=== PATIENT | female | born 1955 | race Caucasian/White ===

== ENCOUNTER 2021-03-02 12:33 | Outpatient (REF) | payer MEDICARE, SELFPAY ==
[2021-03-02 12:47] LABS: Appearance Urine HAZY; Color Urine YELLOW; Glucose Urine UA NEG (NEG); Leukocyte Esterase Urine NEG (NEG); Nitrite Urine NEG (NEG); PH 6.5 (5.0-8.0); UACC Culture Trigger NO; Urine Blood 1+ (NEG); Urine Ketones NEG (NEG); Urine Protein NEG (NEG-TRACE)
[2021-03-02 14:35] LABS: Squamous Epithelial Cell Urine TRACE /LPF; WBC Urine 0-2 /HPF (0-4)
== END 2021-03-02 12:34 | disposition home or self-care (01) ==
LOC: HO.LNP 12:33
PROVIDERS: Visit Provider Internal Medicine
DX: N39.0 Urinary tract infection, site not specified (principal); N81.4 Uterovaginal prolapse, unspecified
CPT/HCPCS: 81001

== ENCOUNTER 2021-03-09 09:45 | Outpatient (REF) | payer MEDICARE, SELFPAY | END 2021-03-09 09:46 | disposition home or self-care (01) | LOC: HO.LAB 09:45 | PROVIDERS: Visit Provider Obstetrics & Gynecology | DX: R31.29 Other microscopic hematuria (principal); R35.0 Frequency of micturition; R10.2 Pelvic and perineal pain | CPT/HCPCS: 87086; 87088; 99202 ==

== ENCOUNTER 2021-03-25 11:10 | Outpatient (REF) | payer MEDICARE, SELFPAY ==
--- NOTE | ~2021-03-25 | US_ITS ---
EXAMINATION: US PELVIC AND TRANSVAGINAL CLINICAL INFORMATION: Pelvic and perineal pain. COMPARISON: None. TECHNIQUE: Ultrasound of the pelvis is performed using both transabdominal and transvaginal transducers along with Doppler. Transvaginal imaging is performed due to inadequate visualization transabdominally. FINDINGS: The uterus is anteverted and measures 7.3 x 0.1 x 3.5 cm in dimension. No focal uterine lesion is seen. There is a large cystic area in the cervix, question representing focal dilatation and fluid in the endocervical canal versus nabothian cyst. The right ovary is not seen. The left ovary is normal-appearing and measures 1.1 x 0.7 x 0.9 cm. There is no fluid in the pelvis. US/US pelvic and transvaginal IMPRESSION: Large cystic area in the cervix, question representing dilated fluid-filled endocervical canal versus large nabothian cyst.
== END 2021-03-25 11:11 | disposition home or self-care (01) ==
LOC: HO.US 11:10
PROVIDERS: Visit Provider Obstetrics & Gynecology
DX: R10.2 Pelvic and perineal pain (principal)
CPT/HCPCS: 76830; 76856

== ENCOUNTER → 2021-03-30 08:34 | Outpatient (BNVA) | payer MEDICARE, SELFPAY | PROVIDERS: PCP Internal Medicine; Visit Provider Obstetrics & Gynecology ==

== ENCOUNTER 2021-04-13 09:43 | Outpatient (REF) | payer MEDICARE, SELFPAY ==
--- NOTE | ~2021-04-13 | MM_ITS ---
EXAMINATION: MM SCREENING DIGITAL BREAST TOMOSYNTHESIS, BILATERAL CLINICAL INFORMATION: Screening. Asymptomatic. The lifetime risk of breast cancer based on the Tyrer-Cuzick Model is 13%. COMPARISON: Mammography: 02/28/2013, 02/21/2012 TECHNIQUE: Digital breast tomosynthesis is performed in both the craniocaudal and mediolateral oblique views along with computer-aided detection (CAD). Synthesized 2D images are generated from the tomosynthesis. FINDINGS: There are scattered areas of fibroglandular density (ACR BI-RADS breast composition Category b). Parenchymal pattern is similar to prior exams. No significant mass or architectural abnormality or abnormal calcifications. Axillary nodes similar to prior exam. The skin contours are smooth. MM/MM tomosynthesis screening BI IMPRESSION: No significant changes from prior study. ASSESSMENT: BI-RADS 2: Benign RECOMMENDATION: Routine annual mammography screening. This patient's information was entered into a reminder system with a target due date for their next mammogram.
[2021-04-13 12:07] LABS: Blood Urea Nitrogen 12 mg/dL (9-16); Estimated Glomerular Filt Rate > 60
== END 2021-04-13 09:44 | disposition home or self-care (01) ==
LOC: HO.MAMMO 09:43
PROVIDERS: Absent Provider Obstetrics & Gynecology; PCP Nurse Practitioner Family; Visit Provider Nurse Practitioner Family
DX: R31.29 Other microscopic hematuria (principal); Z12.31 Encounter for screening mammogram for malignant neoplasm of breast
CPT/HCPCS: 36415; 77063; 77067; 82565; 84520

== ENCOUNTER 2021-04-15 07:56 | Outpatient (REF) | payer MEDICARE, SELFPAY ==
--- NOTE | ~2021-04-15 | MM_ITS ---
EXAMINATION: BONE DENSITOMETRY CLINICAL INDICATION: Menopause. COMPARISON: Baseline BD dated 11/29/2007. TECHNIQUE: Using a [employer] DXA System (software version: 13.1) manufactured by [employer], dual-energy x-ray absorptiometry was performed of the lumbar spine and left hip. The images are of good technical quality. Summary results are attached. FINDINGS: AP SPINE L1-L4: Current: BMD 1.274 g/cm2, Z-score 2.2, T-score 0.8, normal, 7.5% increase from baseline (<5% change is not significant). Baseline: BMD 1.185 g/cm2. LEFT FEMUR, NECK: Current: BMD 0.765 g/cm2, Z-score -0.5, T-score -2.0, osteopenia. Baseline: BMD 0.725 g/cm2. LEFT FEMUR, TOTAL: Current: BMD 0.930 g/cm2, Z-score 0.6, T-score -0.6, normal, 7.8% increase from baseline (<5% change is not significant). Baseline: BMD 0.863 g/cm2. IDENTIFIED RISK FACTORS: Menopause, history of fracture (adult). HISTORY OF FRACTURE: Wrist, ankle. MEDICATIONS: Calcium, vitamin D. MM/XR DEXA axial skeleton IMPRESSION: 1. DIAGNOSIS: Osteopenia based on the lowest T-score value of -2.0 in the femoral neck applying World Health Organization criteria. 2. 10-YEAR FRACTURE RISK PREDICTION, FRAX: Major osteoporotic fracture (clinical spine, forearm, hip or shoulder) 17.3%. Hip fracture 2.8%. 3. Treatment Recommendations: NOF guidelines recommend consideration for treatment in postmenopausal women and men age 50 and older presenting with the following: -A hip or vertebral (clinical or morphometric) fracture. -T-score less than or equal to -2.5 at the femoral neck or spine after appropriate evaluation to exclude secondary causes. -Low bone mass at the hip or spine and a 10-year fracture probability by FRAX of greater than or equal to 3% for hip fracture or greater than or equal to 20% for major osteoporotic fracture based on the [place] adapted WHO algorithm. 4. Other Recommendations: All treatment decisions require clinical judgment and consideration of individual patient factors, including patient preferences, comorbidities, previous drug use, risk factors not captured in the FRAX model (e.g. frailty, falls, vitamin D deficiency, increased bone turnover, interval significant decline in bone density) and possible under or overestimation of fracture risk by FRAX. Additional medical evaluation for secondary cause of low bone mineral density may be appropriate. FUTURE SCAN RECOMMENDATION: People with diagnosed cases of osteoporosis or at high risk for fracture should have regular bone mineral density tests. For patients eligible for Medicare, routine testing is allowed once every 2 years. The testing frequency can be increased to one year for patients who have rapidly progressing disease, those who are receiving or discontinuing medical therapy to restore bone mass, or have additional risk factors.
== END 2021-04-15 07:57 | disposition home or self-care (01) ==
LOC: HO.MAMMO 07:56
PROVIDERS: Visit Provider Obstetrics & Gynecology
DX: Z13.820 Encounter for screening for osteoporosis (principal); M85.80 Other specified disorders of bone density and structure, unspecified site; Z78.0 Asymptomatic menopausal state; Z87.81 Personal history of (healed) traumatic fracture; Z79.899 Other long term (current) drug therapy
CPT/HCPCS: 77080

== ENCOUNTER 2021-04-20 08:05 | Outpatient (REF) | payer MEDICARE, SELFPAY ==
--- NOTE | ~2021-04-20 | CT_ITS ---
EXAMINATION: CT ABDOMEN AND PELVIS WITHOUT AND WITH CONTRAST CLINICAL INFORMATION: Microscopic hematuria COMPARISON: Previous pelvic ultrasound March 2021 TECHNIQUE: Multidetector volumetric imaging was performed of the abdomen and pelvis before and after the IV administration of 85 mL of Omnipaque 350 intravenous contrast. Sagittal and coronal reformatted images were obtained on the technologist's workstation. This CT examination was performed using dose optimization techniques as appropriate, variously including the following: *Automated exposure control *Adjustment of mA and/or kV according to patient size (this includes techniques or standardized protocols for targeted exams where dose is matched to indication/reason for exam; i.e. extremities or head) *Use of iterative reconstruction technique DLP: 677 mGy-cm FINDINGS: LUNG BASES: The visualized lung bases are unremarkable. LIVER, GALLBLADDER, AND BILIARY TREE: The liver is normal in size, shape, and attenuation. No focal hepatic lesion or biliary ductal dilatation is present. The gallbladder is unremarkable with no evidence of radiopaque gallstones, gallbladder wall thickening, or obvious pericholecystic inflammatory changes. PANCREAS: Unremarkable SPLEEN: Unremarkable ADRENAL GLANDS: Unremarkable KIDNEYS AND URETERS: The kidneys are normal in size, shape, and attenuation. No hydronephrosis, hydroureter, or calculi seen. The collecting systems and ureters are normal. BLADDER: The bladder is normal. GASTROINTESTINAL TRACT: The small and large bowel are unremarkable. The appendix is unremarkable. ABDOMINAL WALL: No significant hernia is appreciated. LYMPH NODES: Normal VASCULAR: Unremarkable PELVIC VISCERA: There is a 1.5 cm cystic areas seen in the cervix likely corresponding to finding on pelvic ultrasound. OSSEOUS STRUCTURES: There are degenerative changes of the spine. CT/CT abdomen pelvis wo/w con IMPRESSION: Normal CT IVP. No cause of hematuria seen. Fleischner guidelines were followed.
[2021-04-20] MEDS: iohexoL 350 MG/ML 100 ML INFUS..BTL IV (09:03)
== END 2021-04-20 08:06 | disposition home or self-care (01) ==
LOC: HO.CT 08:05
PROVIDERS: Visit Provider Obstetrics & Gynecology
DX: R31.29 Other microscopic hematuria (principal)
CPT/HCPCS: 74178; Q9967

== ENCOUNTER → 2021-04-29 14:42 | Outpatient (BNVA) | payer MEDICARE, SELFPAY | PROVIDERS: PCP Nurse Practitioner Family; Visit Provider Obstetrics & Gynecology | DX: M85.80 Other specified disorders of bone density and structure, unspecified site (principal); R31.29 Other microscopic hematuria | CPT/HCPCS: 99212 ==

== ENCOUNTER 2021-05-02 07:05 | Outpatient (REF) | payer MEDICARE, SELFPAY ==
[2021-05-02 07:28] LABS: MANUAL DIFF FLAG NO
[2021-05-02 08:04] LABS: Basophils Percent Auto 0.6 % (0-2); Eosinophils Absolute Auto 0.2 X10*3/uL (0.0-0.4); Eosinophils Percent Auto 2.3 % (0-4); Hematocrit 44.2 % (37.0-47.0); Hemoglobin 14.1 g/dl (12.0-16.0); Imm Gran Abs Auto 0.02 X10*3/uL (0.00-0.03); Imm Gran Pct Auto 0.3 % (0.0-0.4); Mean Corpuscular HGB Conc 31.9 g/dl (31.0-35.0); Mean Corpuscular Hemoglobin 26.6 pg (27.0-33.0); Mean Corpuscular Volume 83.2 fL (80.0-98.0); Mean Platelet Volume 8.6 fL (9.4-12.3); Monocytes Absolute Auto 0.4 X10*3/uL (0.1-1.2); Monocytes Percent Auto 5.7 % (2-11); Neutrophils Absolute Auto 4.3 x10*3/uL (2.0-8.3); Neutrophils Percent Auto 62.1 % (45-73); Platelet Count 371 X10*3/uL (160-400); Red Blood Count 5.31 X10*6/uL (4.20-5.50); Red Cell Distribution Width 13.5 % (11.0-16.0); White Blood Count 6.9 X10*3/uL (4.8-10.8)
[2021-05-02 08:24] LABS: Alanine Aminotransferase 15 U/L (0-31); Albumin Level 4.1 g/dL (3.5-5.0); Alkaline Phosphatase 69 U/L (39-117); Anion Gap 11 (12-20); Aspartate Amino Transferase 15 U/L (5-31); Bilirubin Total 0.5 mg/dL (0.0-1.0); Blood Urea Nitrogen 14 mg/dL (9-16); Calcium 9.4 mg/dL (8.4-10.2); Carbon Dioxide 27 mmol/L (22-29); Chloride 106 mmol/L (96-108); Cholesterol 240 mg/dL; Estimated Glomerular Filt Rate > 60; Glucose Fasting 101 mg/dL (60-99); HDL Cholesterol 42 mg/dL; LDL Cholesterol Calculated 174 mg/dl; Potassium 4.4 mmol/L (3.3-5.1); Sodium 140 mmol/L (135-145); Total Protein 7.3 g/dL (6.5-8.0); Triglycerides 122 mg/dL
== END 2021-05-02 07:06 | disposition home or self-care (01) ==
LOC: HO.LAB 07:05
PROVIDERS: Visit Provider Nurse Practitioner Family
DX: E78.00 Pure hypercholesterolemia, unspecified (principal); I10 Essential (primary) hypertension; Z76.89 Persons encountering health services in other specified circumstances; Z13.1 Encounter for screening for diabetes mellitus
CPT/HCPCS: 36415; 80053; 80061; 85025

== ENCOUNTER → 2021-06-10 07:48 | Outpatient (BNVA) | payer MEDICARE, SELFPAY | PROVIDERS: PCP Nurse Practitioner Family; Referring Provider Nurse Practitioner Family; Visit Provider Nurse Practitioner Family | DX: Z12.11 Encounter for screening for malignant neoplasm of colon (principal); K21.9 Gastro-esophageal reflux disease without esophagitis; K59.1 Functional diarrhea | CPT/HCPCS: 99202 ==

== ENCOUNTER 2021-07-20 08:43 | Outpatient (REF) | payer MEDICARE, SELFPAY ==
[2021-07-20 16:25] LABS: Urine Cytology See Pathology rpt
== END 2021-07-20 08:44 | disposition home or self-care (01) ==
LOC: HO.LAB 08:43
PROVIDERS: PCP Nurse Practitioner Family
DX: R31.9 Hematuria, unspecified (principal); N39.0 Urinary tract infection, site not specified
CPT/HCPCS: 87086; 87088; 87186; 88112; 99202

== ENCOUNTER 2021-08-05 13:48 | Outpatient (REF) | payer MEDICARE, SELFPAY ==
--- NOTE | ~2021-08-05 | XR_ITS ---
EXAMINATION: XR HIP, BILATERAL CLINICAL INFORMATION: Pain in the right and left hip. COMPARISON: X-rays of the pelvis and right hip October 2007. TECHNIQUE: AP and lateral views of the right hip and at the left hip. FINDINGS: RIGHT HIP: The hip joint and surrounding bone and soft tissues are normal. LEFT HIP: The hip joint is normal. There is some minimal calcific density or ossific density just proximal to the greater trochanter. This is unchanged. Surrounding bone and soft tissues unremarkable. XR/XR hip RT min 2V IMPRESSION: Right hip: Normal. Left hip: No arthrosis or acute abnormality. Minimal calcific or ossific density just proximal to the greater trochanter unchanged compared to the 2007 examination. This is likely dystrophic related to prior trauma or degenerative change in the surrounding soft tissues.
--- NOTE | ~2021-08-05 | XR_ITS ---
EXAMINATION: XR HIP, BILATERAL CLINICAL INFORMATION: Pain in the right and left hip. COMPARISON: X-rays of the pelvis and right hip October 2007. TECHNIQUE: AP and lateral views of the right hip and at the left hip. FINDINGS: RIGHT HIP: The hip joint and surrounding bone and soft tissues are normal. LEFT HIP: The hip joint is normal. There is some minimal calcific density or ossific density just proximal to the greater trochanter. This is unchanged. Surrounding bone and soft tissues unremarkable. XR/XR hip LT min 2V IMPRESSION: Right hip: Normal. Left hip: No arthrosis or acute abnormality. Minimal calcific or ossific density just proximal to the greater trochanter unchanged compared to the 2007 examination. This is likely dystrophic related to prior trauma or degenerative change in the surrounding soft tissues.
[2021-08-05 15:08] LABS: Alanine Aminotransferase 14 U/L (0-31); Albumin Level 4.1 g/dL (3.5-5.0); Alkaline Phosphatase 75 U/L (39-117); Anion Gap 13 (12-20); Aspartate Amino Transferase 14 U/L (5-31); Bilirubin Direct < 0.2 mg/dL (0.0-0.5); Bilirubin Total 0.4 mg/dL (0.0-1.0); Blood Urea Nitrogen 15 mg/dL (9-16); Calcium 9.4 mg/dL (8.4-10.2); Carbon Dioxide 25 mmol/L (22-29); Chloride 105 mmol/L (96-108); Estimated Glomerular Filt Rate > 60; Glucose Random 89 mg/dL (60-115); Lipase 13 U/L (8-78); Potassium 4.3 mmol/L (3.3-5.1); Sodium 139 mmol/L (135-145); Total Protein 7.4 g/dL (6.5-8.0)
== END 2021-08-05 13:49 | disposition home or self-care (01) ==
LOC: HO.LAB 13:48
PROVIDERS: PCP Nurse Practitioner Family; Visit Provider Nurse Practitioner Family
DX: M16.0 Bilateral primary osteoarthritis of hip (principal); M25.511 Pain in right shoulder; R31.9 Hematuria, unspecified
CPT/HCPCS: 36415; 73502; 80048; 80076; 83690

== ENCOUNTER → 2021-08-17 09:20 | Outpatient (BNVA) | payer MEDICARE, SELFPAY | PROVIDERS: PCP Nurse Practitioner Family | DX: Z13.89 Encounter for screening for other disorder (principal) | CPT/HCPCS: Q3014 ==

== ENCOUNTER 2021-09-07 06:47 | Outpatient (REF) | payer MEDICARE, SELFPAY | END 2021-09-07 06:48 | disposition home or self-care (01) | LOC: HO.HOSX 06:47 | PROVIDERS: Visit Provider Orthopaedic Surgery | DX: Z13.89 Encounter for screening for other disorder (principal) ==

== ENCOUNTER 2021-10-05 07:19 | Day surgery (SDC) | payer MEDICARE, SELFPAY ==
[2021-09-29 15:36] VITALS: BMI 31.7
--- NOTE | 2021-10-02 12:51 | HO.ANESPROP2 ---
Documented by User: Mary Rodas NP 10/02/21 12:57 HPI - Anesthesia Eval Consult details Narrative: 65yo F for Colonoscopy PMFSH Active Problems Active Problems: All Active Problems (Updated 09/29/21 @ 15:30 by Rozina Garber RN) Urinary tract infection (Acute) Uterine prolapse (Acute) Urinary frequency (Acute) Microscopic hematuria (Acute) Well woman exam (Acute) Menopause (Acute) Encounter to establish care (Acute ~04/23/21) Diabetes mellitus screening (Acute) Osteoarthritis of hips, bilateral (Acute) Osteopenia (Acute) Left hip pain (Acute) Right shoulder pain (Acute) Upper back strain (Acute) Hematuria (Acute) Past Medical History Medical History (Updated 09/29/21 @ 15:30 by Rozina Garber RN) Hematuria Hot flashes Osteoarthritis Osteopenia Family History Family History Mother Breast cancer Pre-diabetes Father No problems noted. Surgical History Surgical History (Updated 09/29/21 @ 15:35 by Rozina Garber RN) H/O colonoscopy History of hand surgery History of tonsillectomy History of tubal ligation Social History Social History Housing: House Alcohol intake: never Patient Tobacco Use Status: Former Tobacco user Tobacco use type: Cigarette Smoked in Last 30 Days: No e-Cigarette/Vaping Use: Never Used Second Hand Smoke Exposure: No Use of substances other than those prescribed or required for medical reasons: No Are you DNR?: No Advance Directives: No Advance Directives Information Provided: Yes Recently lost weight without trying: No Nutrition Risks: No Nutritional Risk service: No Current occupational status: employed Cognitive needs: No Hearing needs: No Vision needs: Yes (glasses) Meds Allergies Allergy/AdvReac Type Severity Reaction Status Date / Time Sulfa (Sulfonamide Allergy Severe ANAPHYLAXIS Verified 09/23/21 12:54 Antibiotics) [SULFA(SULFONAMIDE ANTIBIOTICS)] Exam Exam Date and Time: October 02, 2021 1251 Height,Weight and Vital Signs: Height 4 ft 11 in Weight 71.214 kg Assessment and Plan Assessment Anesthesia Assessment: Chart Reviewed Documented by User: Greta Chandra MD 10/05/21 08:18 PMF Past Medical History Medical History (Updated 09/29/21 @ 15:30 by Rozina Garber RN) Hematuria Hot flashes Osteoarthritis Osteopenia Family History Family History Mother Breast cancer Pre-diabetes Father No problems noted. Family history of problems with anesthesia: No Surgical History Surgical History (Updated 09/29/21 @ 15:35 by Rozina Garber RN) H/O colonoscopy History of hand surgery History of tonsillectomy History of tubal ligation History of Problems with Anesthesia: No Social History Social History Housing: House Alcohol intake: never Patient Tobacco Use Status: Former Tobacco user Tobacco use type: Cigarette Smoked in Last 30 Days: No e-Cigarette/Vaping Use: Never Used Second Hand Smoke Exposure: No Use of substances other than those prescribed or required for medical reasons: No Are you DNR?: No Advance Directives: No Advance Directives Information Provided: Yes Recently lost weight without trying: No Nutrition Risks: No Nutritional Risk service: No Current occupational status: employed Cognitive needs: No Hearing needs: No Vision needs: Yes (glasses) Meds Allergies Allergy/AdvReac Type Severity Reaction Status Date / Time Sulfa (Sulfonamide Allergy Severe ANAPHYLAXIS Verified 09/23/21 12:54 Antibiotics) [SULFA(SULFONAMIDE ANTIBIOTICS)] Exam Airway Mallampati Class: II (2 implants on top one each side ) TM Dist: >3cm Neck ROM: Full Heart: rrr Lungs: cta Assessment and Plan Assessment Anesthesia Assessment: Anesthesia Plan Discussed and Chart Reviewed Final Anesthetic Review Family History of Problems with Anesthesia: No History of Problems with Anesthesia: No NPO: Yes ASA Class: II Final Preanesthetic Review: No Changes in Pt Med Stat, Meds/Allgs Chart Reviewed and Consent Obtained/Reviewed Patient Risk: Intermediate Procedure Risk: Intermediate Anesthetic Plan Anesthetic Plan: MAC: Disposition: Standard PACU
[2021-10-05 07:47] VITALS: BMI 31.5
[2021-10-05 07:56] VITALS: BP 124/82; PULSE 78; RESP 16; TEMP 36.6; O2SAT 99
--- NOTE | 2021-10-05 08:01 | MHC.SHP ---
Pre-Procedural Eval Section A Date of Service: 10/05/21 The patient is an INPATIENT: No The History & Physical has been completed within 30 days and I have reviewed it.: No Section B Chief Complaint: screening Details of Present Illness: Colon cancer screening, Reports of occasional diarrhea when she gets stressed or nervous. Relevant Family History (Specify if Yes): No Relevant Social History: Tobacco Use (Former smoker) Present Medications: see Short Stay Collaborative assessment Medical History: Significant History (Osteoarthritis of both hips) History of Previous Operations: Relevant previous surgery/procedure and date(s) (History of hand surgery History of tonsillectomy History of tubal ligation) Allergies: Allergies Allergy/AdvReac Type Severity Reaction Status Date / Time Sulfa (Sulfonamide Allergy Severe ANAPHYLAXIS Verified 09/23/21 12:54 Antibiotics) [SULFA(SULFONAMIDE ANTIBIOTICS)] Review of Systems Sugical H&P ROS: Negative: Constitution, Cardiovascular, Respiratory and Gastrointestinal Exam Surgical H&P Exam: Normal: Heart, Normal: Lungs, Normal: Extremities and Normal: Abdomen Plan Diagnosis/Plan: Unchanged I have reviewed the history and physical and performed a pertinent physical examination on my patient. No changes have occurred unless specified.
--- NOTE | 2021-10-05 08:04 | PM.OP ---
Brief Operative Note Date of Service: 10/05/21 Pre-op diagnosis: Colon cancer screening, diarrhea related to stress Post-op diagnosis: other (Diverticulosis, hemorrhoids) Procedure: COLONOSCOPY TILL CECUM Consent: Indications for the procedure and potential complications of bleeding, perforation, reaction to medications and missed diagnosis were discussed with the patient and informed consent was obtained. Instrument: Olympus PCF H 190 L variable stiffness pediatric colonoscope Monitoring: Vital signs and clinical assessment, intermittent blood pressure monitoring, continuous EKG monitoring, Pulse oximetry and Carbon Dioxide monitoring were done throughout the procedure. Colon withdrawl time was 12 minutes. Procedure: The patient was placed in the left lateral decubitis position and pre-procedure medications were administered. After a digital rectal examination of the ano-rectum, the video colonoscope was inserted into the rectum and advanced through the colon to the cecum. The colonoscope was slowly withdrawn in a retrograde panoramic fashion and the colon mucosa was carefully examined including a retroflexed view of the rectum. Findings and interventions are described below. Procedure Difficulty: [Without difficulty] [LLQ pressure applied to intubate the transverse colon/cecum] Findings: Terminal Ileum: Not evaluated Cecum: Normal Ascending Colon: Normal Transverse Colon: Normal Descending Colon: Moderate diverticulosis Sigmoid Colon: Severe diverticulosis with luminal narrowing Rectum: Normal Ano-rectum: Moderate internal hemorrhoids and hypertrophied anal papillae Colon preparation: Excellent Impression and Post Procedure Diagnosis: Colonoscopy Findings: No polyps were detected Moderate to severe diverticulosis seen in the left colon Moderate hemorrhoids on retroflexed exam. Plan: Repeat Colonoscopy in 9-10 years. Above findings were reviewed with the patient and diverticulosis handout was given in the discharge area Surgeon: Adrian Badillo MD Anesthesia: MAC (Dr Olvera) Was an Electronic Data Interchange Specialist used for this Procedure?: Yes Electronic Data Interchange Specialist: Fiona Mcgee Estimated blood loss (mL): 0 Pathology: none sent Condition: stable Disposition: PACU
[2021-10-05] MEDS: Lactated Ringers 1,000 ML 100 ML IVCONT (08:11)
--- NOTE | 2021-10-05 08:34 | P.OP_ITS ---
Operative Note Operative Note Date of Service: 10/05/21 Narrative: Pre-op diagnosis: Colon cancer screening, diarrhea related to stress Post-op diagnosis: other (Diverticulosis, hemorrhoids) Procedure: COLONOSCOPY TILL CECUM Consent: Indications for the procedure and potential complications of bleeding, perforation, reaction to medications and missed diagnosis were discussed with the patient and informed consent was obtained. Instrument: Olympus PCF H 190 L variable stiffness pediatric colonoscope Monitoring: Vital signs and clinical assessment, intermittent blood pressure monitoring, continuous EKG monitoring, Pulse oximetry and Carbon Dioxide monitoring were done throughout the procedure. Colon withdrawl time was 12 minutes. Procedure: The patient was placed in the left lateral decubitis position and pre-procedure medications were administered. After a digital rectal examination of the ano-rectum, the video colonoscope was inserted into the rectum and advanced through the colon to the cecum. The colonoscope was slowly withdrawn in a retrograde panoramic fashion and the colon mucosa was carefully examined including a retroflexed view of the rectum. Findings and interventions are described below. Procedure Difficulty: [Without difficulty] [LLQ pressure applied to intubate the transverse colon/cecum] Findings: Terminal Ileum: Not evaluated Cecum:? Normal Ascending Colon:? Normal Transverse Colon:? Normal Descending Colon:? Moderate diverticulosis Sigmoid Colon:? Severe diverticulosis with luminal narrowing Rectum:? Normal Ano-rectum:? Moderate internal hemorrhoids and hypertrophied anal papillae Colon preparation: Excellent ? Impression and Post Procedure Diagnosis: Colonoscopy Findings: No polyps were detected Moderate to severe diverticulosis seen in the left colon Moderate hemorrhoids on retroflexed exam. Plan: Repeat Colonoscopy in 9-10 years. Above findings were reviewed with the patient and diverticulosis handout was given in the discharge area Surgeon: Adrian Badillo MD Anesthesia: MAC (Dr Olvera) Was an Crew Boat Operator used for this Procedure?: Yes Crew Boat Operator: Fiona Mcgee Estimated blood loss (mL): 0 Pathology: none sent Condition: stable Disposition: PACU
[2021-10-05 09:00] VITALS: BP 106/62; PULSE 80; RESP 16; TEMP 36.1; O2SAT 96
[2021-10-05 09:15] VITALS: BP 118/66; PULSE 78; RESP 16; TEMP 36.1; O2SAT 97
== END 2021-10-05 09:41 | disposition home or self-care (01) ==
PROVIDERS: PCP Nurse Practitioner Family; Visit Provider Internal Medicine Gastroenterology
PROC: 0DJD8ZZ Inspection of Lower Intestinal Tract, Via Natural or Artificial Opening Endoscopic (ICD-10-PCS; CPT 45378; principal; 2021-10-05 08:30)
DX: Z12.11 Encounter for screening for malignant neoplasm of colon (principal); K57.30 Diverticulosis of large intestine without perforation or abscess without bleeding; K64.8 Other hemorrhoids; K62.89 Other specified diseases of anus and rectum; K59.1 Functional diarrhea; K21.9 Gastro-esophageal reflux disease without esophagitis; M85.80 Other specified disorders of bone density and structure, unspecified site; Z79.899 Other long term (current) drug therapy; Z88.2 Allergy status to sulfonamides; Z87.891 Personal history of nicotine dependence
CPT/HCPCS: G0121

== ENCOUNTER 2022-03-10 09:35 | Outpatient (REF) | payer MEDICARE, SELFPAY ==
[2022-03-10 17:52] LABS: Urine Cytology See Pathology rpt
== END 2022-03-10 09:36 | disposition home or self-care (01) ==
LOC: HO.LAB 09:35
PROVIDERS: PCP Internal Medicine; Visit Provider Urology
DX: R31.29 Other microscopic hematuria (principal); N39.0 Urinary tract infection, site not specified; Z87.891 Personal history of nicotine dependence
CPT/HCPCS: 51798; 88112; 99212; Q3014

== ENCOUNTER 2022-04-26 09:27 | Outpatient (REF) | payer MEDICARE, SELFPAY ==
--- NOTE | ~2022-04-26 | MM_ITS ---
EXAMINATION: MM SCREENING DIGITAL BREAST TOMOSYNTHESIS, BILATERAL CLINICAL INFORMATION: Screening. Asymptomatic. The lifetime risk of breast cancer based on the Tyrer-Cuzick Model is 10%. COMPARISON: Mammography: 04/13/2021; outside mammography 03/20/2018, 04/13/2017 ([facility]) TECHNIQUE: Digital breast tomosynthesis is performed in both the craniocaudal and mediolateral oblique views along with computer-aided detection (CAD). Synthesized 2D images are generated from the tomosynthesis. Additional left MLO view is provided. FINDINGS: There are scattered areas of fibroglandular density (ACR BI-RADS breast composition Category b). There are no significant masses, abnormal calcifications, or other abnormalities. No developing density or architectural abnormality. Axillary nodes are stable. The skin contours are smooth. MM/MM tomosynthesis screening BI IMPRESSION: No mammographic evidence of malignancy. ASSESSMENT: BI-RADS 2: Benign RECOMMENDATION: Routine annual mammography screening. This patient's information was entered into a reminder system with a target due date for their next mammogram.
== END 2022-04-26 09:28 | disposition home or self-care (01) ==
LOC: HO.MAMMO 09:27
PROVIDERS: PCP Internal Medicine; Visit Provider Internal Medicine
DX: Z12.31 Encounter for screening mammogram for malignant neoplasm of breast (principal)
CPT/HCPCS: 77063; 77067

== ENCOUNTER → 2022-05-05 08:21 | Outpatient (BNVA) | payer MEDICARE, SELFPAY | PROVIDERS: PCP Internal Medicine; Visit Provider Urology | DX: R31.29 Other microscopic hematuria (principal); N39.0 Urinary tract infection, site not specified; Z87.891 Personal history of nicotine dependence | CPT/HCPCS: 52000; 99212 ==

== ENCOUNTER 2022-05-14 14:03 | Outpatient (REF) | payer MEDICARE, SELFPAY ==
[2022-05-14 15:02] LABS: Appearance Urine Clear; Color Urine Yellow; Glucose Urine UA Negative (Negative); Leukocyte Esterase Urine Trace (Negative); Nitrite Urine Negative (Negative); Specific Gravity - Urine 1.025 (1.005-1.025); UMIC TRIGGER UA YES; Urine Blood Small (1+) (Negative); Urine Ketones Negative (Negative); Urine Protein Negative (Neg-Trace)
[2022-05-14 15:32] LABS: Bacteria Urine None Seen (None Seen); Hyaline Casts Urine 0-2 /LPF (0-2); WBC Urine 0-5 /HPF (0-5)
== END 2022-05-14 14:04 | disposition home or self-care (01) ==
LOC: HO.LAB 14:03
PROVIDERS: PCP Internal Medicine; Visit Provider Urology
DX: N39.0 Urinary tract infection, site not specified (principal)
CPT/HCPCS: 81001; 87086

== ENCOUNTER 2022-09-27 08:49 | Outpatient (REF) | payer MEDICARE, SELFPAY ==
--- NOTE | ~2022-09-27 | XR_ITS ---
EXAMINATION: LUMBAR SPINE AND PELVIS: CLINICAL INDICATION: Spondylosis without myelopathy. Correlation: None available. TECHNIQUE: Lumbar spine 5 views. Pelvis 2 views. FINDINGS: LUMBAR SPINE: There is mild straightening of the lumbar lordosis. The vertebral heights and alignment are normal. There is mild loss of T11-T12, T12-L1, L2-L3 and L3-L4 disc heights without acute fracture or dislocation. There is mild ventral spondylosis throughout lumbar spine. No lytic or sclerotic process seen. PELVIS: 2 views of the pelvis reveals normal symmetry of the bilateral hip joints and SI joints. There are no fracture or bony erosive changes. The soft tissues are normal. XR/XR lumbar spine 4V min IMPRESSION: Degenerative disc changes T11-T12, T12-L1, L2-L3 and L3-L4 disc levels with mild ventral spondylosis. No acute fracture or dislocation seen. Mild degenerative disc changes with no visible acute fracture or dislocation seen. Unremarkable pelvis exam.
--- NOTE | ~2022-09-27 | XR_ITS ---
EXAMINATION: LUMBAR SPINE AND PELVIS: CLINICAL INDICATION: Spondylosis without myelopathy. Correlation: None available. TECHNIQUE: Lumbar spine 5 views. Pelvis 2 views. FINDINGS: LUMBAR SPINE: There is mild straightening of the lumbar lordosis. The vertebral heights and alignment are normal. There is mild loss of T11-T12, T12-L1, L2-L3 and L3-L4 disc heights without acute fracture or dislocation. There is mild ventral spondylosis throughout lumbar spine. No lytic or sclerotic process seen. PELVIS: 2 views of the pelvis reveals normal symmetry of the bilateral hip joints and SI joints. There are no fracture or bony erosive changes. The soft tissues are normal. XR/XR pelvis min 3V IMPRESSION: Degenerative disc changes T11-T12, T12-L1, L2-L3 and L3-L4 disc levels with mild ventral spondylosis. No acute fracture or dislocation seen. Mild degenerative disc changes with no visible acute fracture or dislocation seen. Unremarkable pelvis exam.
== END 2022-09-27 08:50 | disposition home or self-care (01) ==
LOC: HO.XRAY 08:49
PROVIDERS: PCP Nurse Practitioner Family; Visit Provider Anesthesiology
DX: M47.816 Spondylosis without myelopathy or radiculopathy, lumbar region (principal); M54.9 Dorsalgia, unspecified; M53.3 Sacrococcygeal disorders, not elsewhere classified; M46.1 Sacroiliitis, not elsewhere classified
CPT/HCPCS: 72110; 72190; 99202

== ENCOUNTER 2022-11-02 05:58 | Outpatient (REF) | payer MEDICARE, SELFPAY ==
--- NOTE | ~2022-11-02 | FL_ITS ---
EXAMINATION: XR FLUOROSCOPY WITH IMAGES CLINICAL INFORMATION: Spondylosis without myelopathy or radiculopathy, lumbar region. COMPARISON: None available. TECHNIQUE: Fluoroscopy Supervised By: Dr. Leander Tinajero. Fluoroscopy Time: 0.4 minutes. Cumulative Dose: 16.4 mGy. DAP: 4.47 Gycm2. Images: 6. FINDINGS: Images demonstrate needle placement and contrast injection adjacent to the bilateral lateral L3-L4 and L5 vertebrae FL/FL guidance in treatment room IMPRESSION: Fluoroscopy guidance for pain management procedure
== END 2022-11-02 05:59 | disposition home or self-care (01) ==
LOC: CF 05:58
PROVIDERS: Visit Provider Anesthesiology
DX: M47.816 Spondylosis without myelopathy or radiculopathy, lumbar region (principal); M53.3 Sacrococcygeal disorders, not elsewhere classified; M46.1 Sacroiliitis, not elsewhere classified; M54.9 Dorsalgia, unspecified
CPT/HCPCS: 64493; 64494; J2795; Q9967

== ENCOUNTER → 2022-11-04 08:19 | Outpatient (BNVA) | payer MEDICARE, SELFPAY | PROVIDERS: PCP Nurse Practitioner Family; Visit Provider Anesthesiology | DX: M47.816 Spondylosis without myelopathy or radiculopathy, lumbar region (principal); M54.9 Dorsalgia, unspecified; M53.3 Sacrococcygeal disorders, not elsewhere classified; M46.1 Sacroiliitis, not elsewhere classified | CPT/HCPCS: 99212 ==

== ENCOUNTER 2022-11-30 06:04 | Outpatient (REF) | payer MEDICARE, SELFPAY ==
--- NOTE | ~2022-11-30 | FL_ITS ---
EXAMINATION: XR FLUOROSCOPY WITH IMAGES CLINICAL INFORMATION: Sacrococcygeal disorders, not elsewhere classified. COMPARISON: None available. TECHNIQUE: Fluoroscopy Supervised By: Dr. Leander Tinajero. Fluoroscopy Time: 0.2 minutes. Cumulative Dose: 2.79 mGy. DAP: 0.0485 Gycm2. Images: 1. FINDINGS: Images demonstrate needle placement and contrast injection of the right sacroiliac joint FL/FL guidance in treatment room IMPRESSION: Fluoroscopic guidance for right sacroiliac joint injection.
== END 2022-11-30 06:05 | disposition home or self-care (01) ==
LOC: CF 06:04
PROVIDERS: Visit Provider Anesthesiology
DX: M53.3 Sacrococcygeal disorders, not elsewhere classified (principal); M47.816 Spondylosis without myelopathy or radiculopathy, lumbar region; M46.1 Sacroiliitis, not elsewhere classified
CPT/HCPCS: 27096

== ENCOUNTER 2022-11-30 08:47 | Outpatient (AMB) | payer MEDICARE, SELFPAY ==
--- NOTE | 2022-11-30 08:56 | MHC.OFFVIS ---
Intake Vital Signs 11/30/22 08:57 11/30/22 10:08 Height 4 ft 11 in 4 ft 11 in Weight 140 lb 140 lb BMI 28.3 28.3 BP 122/66 108/76 Blood Pressure Location Lt brachial Lt brachial Position Sitting Sitting Respiration 16 16 Pulse 68 70 Pulse Source Pulse Oximeter Pulse Oximeter Pulse Oximetry (%) 99 97 Oxygen Delivery Method Room Air Room Air Comment Pre-op Post-op Intake Visit Reasons: R DX SIJ INJ/LOCAL Allergies Sulfa (Sulfonamide Antibiotics) [SULFA(SULFONAMIDE ANTIBIOTICS)] Allergy (Severe, Verified 11/30/22 08:56) ANAPHYLAXIS PFSH Medical History Hematuria Hot flashes Osteoarthritis Osteopenia Surgical History H/O colonoscopy History of hand surgery History of tonsillectomy History of tubal ligation Family History Mother Breast cancer Pre-diabetes Father No problems noted. Social History Housing: House Alcohol intake: never Patient Tobacco Use Status: Former Tobacco user Tobacco use type: Cigarette e-Cigarette/Vaping Use: Never Used Second Hand Smoke Exposure: No service: No Current occupational status: employed Cognitive needs: No Hearing needs: No Vision needs: Yes (glasses) Female Reproductive History Menstrual Age of Menarche: 12 Physical Exam Vital Signs: Last Vital Signs Pulse 70 11/30/22 10:08 Resp 16 11/30/22 10:08 BP 108/76 11/30/22 10:08 Pulse Ox 97 11/30/22 10:08 Oxygen Delivery Method Room Air 11/30/22 10:08 BMI result Body Mass Index 28.3 Results Reviewed Results Reviewed: 11/30/22 09:31 Lidocaine HCl 2 % MPF [Xylocaine 2 % MPF] 5 ml .ROUTE .STK-MED ONE Assessment & Plan Assessment & Plan (1) Spondylosis of lumbar region without myelopathy or radiculopathy: Code(s): M47.816 - Spondylosis without myelopathy or radiculopathy, lumbar region (2) Back pain: Code(s): M54.9 - Dorsalgia, unspecified (3) Sacroiliac joint dysfunction of right side: Code(s): M53.3 - Sacrococcygeal disorders, not elsewhere classified Plan: Right diagnostic sacroiliac joint injection Informed consent was explained thoroughly to the patient. All questions about benefits and risks for the procedure were answered. Patient came to the operating room and was positioned prone on the operating table with the pillow under the pelvis. Time out was performed delineating name and of the patient, allergies and the nature of the procedure. The lower back and buttocks of the patient were prepped with ChloraPrep prepped and draped with sterile utility towels. C-arm was brought over the operating field and sq picture of patient's pelvis was demonstrated on the screen. For the right joint tilting C-arm contralateral to the site of the joint the most posterior portion of the joints was superimposed with anterior silhouette of the joint. Skin was injected in the projection of the joint slightly medial to the location of the joint with 25 gauge 1/2 inch needle using local lidocaine 2% .After that 22 gauge 3 and 1/2 inch needle was driven to the right joint in tunnel vision fashion. When needle entered the joint capsule injection of the contrast was performed demonstrating intra-articular and minimally periarticular spread of the contrast. After that 4 cc. of ropivacaine 0.5% was injected into the joint. Upon completion of the injections the needle was removed Sterile dressing was applied. Upon completion of the injection patient was taken outside of the operating room to the recovery room where recovered uneventfully. (4) Sacroiliitis: Code(s): M46.1 - Sacroiliitis, not elsewhere classified Plan diagnostic medial branch block L3-L4 dorsal ramus L5 bilateral resulted in good pain relief for the 1st 3 hours 100% pain improved and up to 50% pain improvement for the next 2 hours. That corresponds to usual time ropivacaine anesthetic works for this patient. She is scheduled for right sacroiliac joint injection. Possibility exists that right sacroiliac joint also involved as a pain generator. If sacroiliac joint injection does not give her significant pain relief repeat of the procedure with bupivacaine and epinephrine as the longer lasting diagnostic #2. Medial branch block will be considered. If she reports good in significant pain relieve on the sacroiliac joint injection I will be able to address both of her pain generators with definitive procedures. Next appointment will be performed after SI joint injection. Orders: Orders FL guidance in treatment room 11/30/22 M53.3 - Sacrococcygeal disorders, not elsewhere classified Coding Level of Care Code Procedure Only Diagnoses Spondylosis of lumbar region without myelopathy or radiculopathy M47.816 Back pain M54.9 Sacroiliac joint dysfunction of right side M53.3 Sacroiliitis M46.1
[2022-11-30 08:57] VITALS: BP 122/66; PULSE 68; RESP 16; O2SAT 99; BMI 28.3
[2022-11-30 10:08] VITALS: BP 108/76; PULSE 70; RESP 16; O2SAT 97; BMI 28.3
== END 2022-11-30 09:51 | disposition home or self-care (01) ==
PROVIDERS: PCP Nurse Practitioner Family; Visit Provider Anesthesiology
DX: M53.3 Sacrococcygeal disorders, not elsewhere classified (principal)
CPT/HCPCS: 27096

== ENCOUNTER 2022-12-02 08:02 | Outpatient (AMB) | payer MEDICARE, SELFPAY ==
--- NOTE | 2022-12-02 08:03 | MHC.OFFVIS ---
Intake Intake Visit Reasons: R DX SIJ INJ 11/30/22 Allergies Sulfa (Sulfonamide Antibiotics) [SULFA(SULFONAMIDE ANTIBIOTICS)] Allergy (Severe, Verified 12/02/22 08:03) ANAPHYLAXIS HPI HPI Comments History of Present Illness Details Micaela is on the phone today to discuss the results of diagnostic sacroiliac joint injection on the right. She reports 100% pain relief for the 1st an hours after the injection. She reports that injection was ?wonderful ?. She reports significant improvement in mobility activities of daily living and social interactions. Patient was explained SI joint stabilization with fusion as well as the iliac joint innervation stimulation. Patient was explained that my choice would be 1st to do SI joint fusion although she is with advanced age. She stop smoking long time ago, she does not take any steroids or NSAIDs, she denies drinking alcohol, she never was diagnosed with osteoporosis. Therefore she has significant chance of creating arthrodesis of the sacroiliac joint. She had significant improvement so on the medial branch blocks however not as good as sacroiliac joint injection. Her facet joints might be involved in her pain generator as well and in the future we might address this issue as well. medial branch block L3-L4 does ramus L5 bilateral for the 1st 3 hours after injection complete pain alleviation 100% pain relief. After that her pain started to come back, and she felt about 50% of pain improvement still at 4th and 5th hour after the procedure. There is certain indication that is at least some of her pain goes from her lower lumbar spine facet joints. However before making the definitive conclusion about her treatment I would like to perform as I planned before right sacroiliac joint injection. Prior: very pleasant 66 years old female who presents in my office with complains on pain in the lower back and says midback. She reports that this pain started many years ago but it was mild in nature now she reports that pain became aggravated significantly . She reports her pain 8/10 today. 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 She reports that weather changes and movements aggravate her pain and the oral medications such is muscle relaxants and NSAIDs helps her pain minimally. Heat applications also alleviate her pain for short period of time but removal of the heat aggravates her pain again. She received hip x-rays [facility]. She had physical therapy for her pain in [facility] and received no relief. She never had x-rays of the lumbar spine or pelvis in the past to alleviate her pain. PFSH Medical History Hematuria Hot flashes Osteoarthritis Osteopenia Surgical History H/O colonoscopy History of hand surgery History of tonsillectomy History of tubal ligation Family History Mother Breast cancer Pre-diabetes Father No problems noted. Social History Housing: House Alcohol intake: never Patient Tobacco Use Status: Former Tobacco user Tobacco use type: Cigarette e-Cigarette/Vaping Use: Never Used Second Hand Smoke Exposure: No service: No Current occupational status: employed Cognitive needs: No Hearing needs: No Vision needs: Yes (glasses) Female Reproductive History Menstrual Age of Menarche: 12 Review of Systems Const All systems reviewed & are unremarkable except as noted in HPI and below Assessment & Plan Assessment & Plan (1) Spondylosis of lumbar region without myelopathy or radiculopathy: Code(s): M47.816 - Spondylosis without myelopathy or radiculopathy, lumbar region (2) Back pain: Code(s): M54.9 - Dorsalgia, unspecified (3) Sacroiliac joint dysfunction of right side: Code(s): M53.3 - Sacrococcygeal disorders, not elsewhere classified (4) Sacroiliitis: Code(s): M46.1 - Sacroiliitis, not elsewhere classified Plan diagnostic medial branch block L3-L4 dorsal ramus L5 bilateral resulted in good pain relief for the 1st 3 hours 100% pain improved and up to 50% pain improvement for the next 2 hours. That corresponds to usual time ropivacaine anesthetic works for this patient. However ! pain relieve after sacroiliac joint injection was more dramatic. She reported 100% pain improvement for the 1st and hours after the procedure and the gradual pain come back only next morning after she had the injection. SI joint fusion versus PNS stimulation was discussed. Patient was explained all details of her treatment plan. She agreed to go for sacroiliac joint fusion. this patient exhausted conservative measures to treat her pain. She was trying NSAIDs and Tylenol was trying muscle relaxants, she was subject of physical therapy for the long period of time, she continues home exercise program with minimal improvement and improvement in short lived. She is not taking any blood thinners. She stop smoking many years ago, she was never diagnosed with osteoporosis. Therefore I thing she will be a good candidate for sacroiliac joint stabilization with fusion. Patient Instructions: I here by testify that I spent 30 minutes in conversation with this patient as well as planning her care and organizing her note. Telehealth Telehealth Location of provider rendering services: practice address Location of patient: other Patient Identification confirmed using: Name, : Yes Telehealth method: voice only Patient verbally consented to treatment: Yes Patient verbally consented to billing insurance company: Yes Patient informed of any privacy concerns related to visit: Yes Coding Level of Care Code Tele Est Pt Level 4 (33957) Diagnoses Spondylosis of lumbar region without myelopathy or radiculopathy M47.816 Back pain M54.9 Sacroiliac joint dysfunction of right side M53.3 Sacroiliitis M46.1
== END 2022-12-02 08:27 | disposition home or self-care (01) ==
LOC: HO.PMC 08:02
PROVIDERS: PCP Nurse Practitioner Family; Visit Provider Anesthesiology
DX: M47.816 Spondylosis without myelopathy or radiculopathy, lumbar region (principal); M54.9 Dorsalgia, unspecified; M53.3 Sacrococcygeal disorders, not elsewhere classified; M46.1 Sacroiliitis, not elsewhere classified
CPT/HCPCS: 99443

== ENCOUNTER → 2022-12-02 08:02 | Outpatient (BNVA) | payer MEDICARE, SELFPAY | PROVIDERS: PCP Nurse Practitioner Family; Visit Provider Anesthesiology ==

== ENCOUNTER 2023-01-21 08:46 | Outpatient (REF) | payer MEDICARE, SELFPAY ==
[2023-01-21 11:34] LABS: Hematocrit 44.9 % (37.0-47.0); Hemoglobin 14.4 g/dl (12.0-16.0); Mean Corpuscular HGB Conc 32.1 g/dl (31.0-35.0); Mean Corpuscular Hemoglobin 27.7 pg (27.0-33.0); Mean Corpuscular Volume 86.5 fL (80.0-98.0); Mean Platelet Volume 8.8 fL (9.4-12.3); Platelet Count 389 X10*3/uL (160-400); Red Blood Count 5.19 X10*6/uL (4.20-5.50); Red Cell Distribution Width 14.6 % (11.0-16.0); White Blood Count 8.1 X10*3/uL (4.8-10.8)
[2023-01-21 12:30] LABS: Alanine Aminotransferase 14 U/L (0-31); Albumin Level 4.4 g/dL (3.5-5.0); Alkaline Phosphatase 60 U/L (39-117); Anion Gap 14 (12-20); Aspartate Amino Transferase 14 U/L (5-31); Bilirubin Total 0.5 mg/dL (0.0-1.0); Blood Urea Nitrogen 13 mg/dL (9-16); Calcium 9.8 mg/dL (8.4-10.2); Carbon Dioxide 24 mmol/L (22-29); Chloride 106 mmol/L (96-108); Cholesterol 228 mg/dL (<200); Estimated Glomerular Filt Rate > 60; Glucose Fasting 95 mg/dL (60-99); HDL Cholesterol 44 mg/dL (>40); LDL Cholesterol Calculated 147 mg/dL (<100); Sodium 140 mmol/L (135-145); Total Protein 7.4 g/dL (6.5-8.0); Triglycerides 189 mg/dL (<150)
== END 2023-01-21 08:47 | disposition home or self-care (01) ==
LOC: HO.WFDLDS 08:46
PROVIDERS: Visit Provider Nurse Practitioner Family
DX: Z13.220 Encounter for screening for lipoid disorders (principal); Z13.1 Encounter for screening for diabetes mellitus; M54.9 Dorsalgia, unspecified; R31.29 Other microscopic hematuria; N81.4 Uterovaginal prolapse, unspecified
CPT/HCPCS: 36415; 80053; 80061; 85027

== ENCOUNTER 2023-03-11 14:42 | Outpatient (AMB) | payer MEDICARE, SELFPAY ==
[2023-03-11 14:48] VITALS: BP 110/62; PULSE 81; O2SAT 97; BMI 28.3
--- NOTE | 2023-03-11 14:48 | A.OFFPC_ITS ---
Vital Signs 03/11/23 14:48 Height 4 ft 11 in Weight 140 lb 0.8 oz BMI 28.3 BP 110/62 Blood Pressure Location Lt brachial Position Sitting Pulse 81 Pulse Source Pulse Oximeter Pulse Oximetry (%) 97 Oxygen Delivery Method Room Air Intake Visit Reasons: Physical exam Intake Note: Patient is here today for a physical. [employer] Super[employer] Required: No Allergies Sulfa (Sulfonamide Antibiotics) [SULFA(SULFONAMIDE ANTIBIOTICS)] Allergy (Severe, Verified 03/11/23 15:17) ANAPHYLAXIS Medication List - Last Reconciled 03/11/23 by JARON Dodd cyclobenzaprine 10 mg PO BEDTIME Tobacco use date assessed: 03/11/23 Fall risk assessment: No Falls in past year Last assessed Fall Risk: 03/11/23 Dental Screening Dental Screen Date: 03/11/23 Did you have a dental visit in the last 12 months?: Yes Did you have a dental problem in the last 6 months where you did not have access to dental care?: No Was dental information given to patient?: Patient has dentist HPI Physical exam HPI Details Patient is a 67-year-old female who presents today for physical exam. Patient of Dr. Sadler. Medical history significant for osteopenia, uterine prolapse-followed by Urology, back pain-followed by [place] [facility]. Mammogram normal 04/2022. Colonoscopy 09/2021 which showed diverticulosis and hemorrhoids and repeat in 9-[address] Badillo. Bone density screen 04/2021 with osteopenia. Patient reports pneumonia vaccine after age 65. Eye and dental exams up-to-date. Today we discussed patient's need for tetanus vaccine. No shortness of breath or chest pain. [facility] Medical History (Updated 03/11/23 @ 15:23 by JARON Dodd) Former cigarette smoker Encounter to establish care (~04/23/21) Osteoarthritis Osteopenia Hematuria Hot flashes Surgical History H/O colonoscopy History of hand surgery History of tubal ligation History of tonsillectomy Family History Mother Breast cancer Pre-diabetes Father No problems noted. Social History (Reviewed 03/11/23 @ 15:19 by ROSEANN Dodd Housing: House Alcohol intake: never Patient Tobacco Use Status: Former Tobacco user Tobacco use type: Cigarette e-Cigarette/Vaping Use: Never Used Second Hand Smoke Exposure: No service: No Current occupational status: employed Cognitive needs: No Hearing needs: No Vision needs: Yes (glasses) Female Reproductive History Menstrual Age of Menarche: 12 Questionnaire PHQ-9 Over the last 2 weeks, how often have you been bothered by any of the following problems? 1. Little interest or pleasure in doing things: not at all 2. Feeling down, depressed, or hopeless: not at all 3. Trouble falling or staying asleep, or sleeping too much: not at all 4. Feeling tired or having little energy: not at all 5. Poor appetite or overeating: not at all 6. Feeling bad about yourself - or that you are a failure or have let yourself or your family down: not at all 7. Trouble concentrating on things, such as reading the newspaper or watching television: not at all 8. Moving or speaking so slowly that other people could have noticed. Or the opposite - being so fidgety or restless that you have been moving around a lot more than usual: not at all 9. Thoughts that you would be better off or of hurting yourself in some way: not at all Total score: 0 Depression Screening Interpretation: Negative Depression Screening Done: Yes 48807 - PHQ-9 Billing: Yes Source: Developed by Drs. Boris Otero, Sarina Flowers, Carlitos Zimmerman and colleagues, with an educational nemo from [employer]. Thrive Questionnaire Date Thrive assessed: 08/05/21 AUDIT C Alcohol Use Questionnaire (AUDIT-C) 1. How often do you have a drink containing alcohol?: Never Total Score: 0 Score Reviewed/Action Taken: No OLGA-7 AMB Questionnaire OLGA-7 Date OLGA - 7 assessed: 03/11/23 Feeling nervous, anxious, or on edge: 1 = Several days Not being able to stop or control worryin = Several days Worrying too much about different things: 0 = Not at all Trouble relaxin = Not at all Being so restless that it is hard to sit still: 0 = Not at all Becoming easily annoyed or irritable: 0 = Not at all Feeling afraid as if something awful might happen: 0 = Not at all Total OLGA-7 score (0-4 normal; 5-9 mild; 10-14 moderate; 15-21 severe): 2 Source: Developed by Drs. Boris Otero, Sarina Flowers, Carlitos Zimmerman and colleagues, with an educational nemo from [employer]. OLGA-7 Assessment Billing OLGA-7 Assessment Tool: OLGA-7 Assessment 32839 Review of Systems Const Denies body aches, Denies chills, Denies fever(s) and Denies headache(s) Eyes Denies change in vision ENT Denies dizziness, Denies otalgia, Denies headache(s), Denies nasal discharge, Denies sinus pain and Denies sore throat Card Denies chest pain, Denies edema, Denies lightheadedness and Denies dyspnea Resp Denies dyspnea and Denies wheezing GI Denies abdominal pain, Denies constipation, Denies diarrhea, Denies nausea and Denies vomiting Denies dysuria Musc Reports back pain and Denies myalgias Skin/Breast Details: Eczema on face Neuro Denies dizziness and Denies headache(s) Aller/Immun Denies wheezing Physical exam (Primary Care) Vital Signs: Last Vital Signs Pulse 81 03/11/23 14:48 BP 110/62 03/11/23 14:48 Pulse Ox 97 03/11/23 14:48 Oxygen Delivery Method Room Air 03/11/23 14:48 BMI result Body Mass Index 28.3 Tobacco/Smoking Status: Tobacco use Status Tobacco use date assessed 03/11/23 03/11/23 14:50 Patient Tobacco Use Status Former Tobacco user 03/11/23 14:50 Tobacco use type Cigarette 03/11/23 14:50 e-Cigarette/Vaping Use Never Used 03/11/23 14:50 PHQ-9: PHQ-9 Score PHQ-9: Total score 0 03/11/23 15:26 Depression Screening Interpretation: Negative Thrive Assessment: Date of Thrive Assessment Date Thrive assessed 08/05/21 03/11/23 14:50 Const General: cooperative and no acute distress Orientation/consciousness: patient oriented x3 HENMT Head: Yes normocephalic and Yes atraumatic Ears: TM's normal bilaterally Face and sinus: Yes sinuses nontender Mouth: oropharynx normal and moist mucous membranes Throat: Yes posterior oropharynx normal Eyes General: appearance normal, both eyes and all related structures Pupils: Equal, round and reactive pupils present EOM: EOMs intact bilaterally Neck Neck: Yes normal visual inspection, Yes full ROM and Yes no lymphadenopathy Thyroid: Thyroid normal Resp Effort & Inspection: normal respiratory effort and able to speak in complete sentences Auscultation: clear to auscultation bilaterally, no crackles, no rales, no rhonchi and no wheezes Cardio Rate: regular rate Rhythm: regular rhythm Heart sounds: S1 normal heart sound present, S2 normal heart sound present and no murmurs GI Palpation (GI): Soft to palpation, not firm, nontender, no guarding, not rigid and no hepatosplenomegaly Auscultation: normal bowel sounds General: No CVA tenderness Back/Spine/Pelvis Back: No CVA tenderness Skin General skin exam: no rashes or lesions noted Neuro General: patient oriented x3 Cranial nerves: Yes Equal, round and reactive pupils present Gait exam (Neuro): Normal gait present Extrem General: Yes full ROM and No edema Immunizations tetanus-diphtheria toxoids-Td 2 Lf unit-2 Lf unit/0.5 mL IM suspension Performing Provider: JARON Dodd [facility] Administered by: OSMANI Long on 03/11/23 15:25 Dose Route Admin Location Dispensed Lot Number Expiration Date NDC Siding Applicator 0.5 mL IM Left Deltoid 0.5 mL [id number] 09/19/23 [address]-3 [employer] VIS Given Date VIS Provided VIS Publication Date 03/11/23 Single Vaccine 20 Eligibility Eligibility Date Funding Source Not [facility] Eligible 03/11/23 Private Assessment and Plan Assessment & Plan (1) Adult general medical exam: Code(s): Z00.00 - Encounter for general adult medical examination without abnormal findings (2) Spondylosis of lumbar region without myelopathy or radiculopathy: Code(s): M47.816 - Spondylosis without myelopathy or radiculopathy, lumbar region Plan: Continue to follow-up with [place] pain management Orders: Orders TSH reflex Free T4 03/11/23 Z00.00 - Encounter for general adult medical examination without abnormal findings Td State Immunization 03/11/23 Z23 - Encounter for immunization Vitamin D 25-OH Total 03/11/23 Z00.00 - Encounter for general adult medical examination without abnormal findings Coding Level of Care Code Est Pt Prev Care >65y(72546) Diagnoses Adult general medical exam Z00.00 Spondylosis of lumbar region without myelopathy or radiculopathy M47.816 Additional Codes OLGA-7 Assessment Billing - OLGA-7 Assessment Tool: OLGA-7 Assessment [id number] ([id number])
== END 2023-03-11 15:36 | disposition home or self-care (01) ==
PROVIDERS: PCP Nurse Practitioner Family; Visit Provider Nurse Practitioner Family
DX: Z23 Encounter for immunization (principal)
CPT/HCPCS: 90471; 90714; 99397

== ENCOUNTER 2023-04-18 08:34 | Outpatient (AMB) | payer MEDICARE, SELFPAY ==
--- NOTE | 2023-04-18 08:42 | A.OFFVIS_ITS ---
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 No complaints. Last Pap/HPV unknown, but according to the patient she has been adequately screened prior to the age of 65 with negative co testing Last Mammogram was in 05/06 was BI-RADS 2, next screening mammogram scheduled in few weeks Last Colonoscopy was in 10/04, the recommendation was to repeat screening colonoscopy in 10 years Last DEXA scan was in 05/05 was in the low risk category PFSH Medical History Former cigarette smoker Encounter to establish care (~04/23/21) Osteoarthritis Osteopenia Hematuria Hot flashes Surgical History H/O colonoscopy History of hand surgery History of tubal ligation History of tonsillectomy Family History Mother Breast cancer Pre-diabetes Father No problems noted. Social History Housing: House Alcohol intake: never Patient Tobacco Use Status: Former Tobacco user Tobacco use type: Cigarette e-Cigarette/Vaping Use: Never Used Second Hand Smoke Exposure: No service: No Current occupational status: employed Cognitive needs: No Hearing needs: No Vision needs: Yes (glasses) Female Reproductive History Menstrual Age of Menarche: 12 Menopause type: natural Total pregnancies: 0 Date of Mammogram: 04/26/22 Physical Exam Vital Signs: Last Vital Signs BP 120/60 04/18/23 08:43 BMI result Body Mass Index 28.7 Assessment & Plan Assessment & Plan (1) Well woman exam: Code(s): Z01.419 - Encounter for gynecological examination (general) (routine) without abnormal findings Plan: Co testing not indicated since the patient 's age is above 65 with no history of abnormal Pap smears last 25 years. Counseled the patient about the recommended dietary allowance of 1200 mg of Calcium & 800 IU of vitamin D. Mammogram ordered. Will order DEXA scan . The patient was instructed to perform monthly self-breast exams and to schedule a 2 week DEXA scan follow-up appointment and an annual exam in a year; All questions answered and the patient verbalized understanding. Orders: Orders XR DEXA axial skeleton Today Z78.0 - Asymptomatic menopausal state MM screening mammo BI Today Z12.31 - Encounter for screening mammogram for malignant neoplasm of breast Coding Level of Care Code Est Pt Prev Care >65y(18106) Diagnoses Well woman exam Z01.419
[2023-04-18 08:43] VITALS: BP 120/60; BMI 28.7
== END 2023-04-18 09:07 | disposition home or self-care (01) ==
PROVIDERS: PCP Nurse Practitioner Family; Visit Provider Obstetrics & Gynecology
DX: Z01.419 Encounter for gynecological examination (general) (routine) without abnormal findings (principal)
CPT/HCPCS: 99397

== ENCOUNTER → 2023-04-18 08:34 | Outpatient (BNVA) | payer MEDICARE, SELFPAY | PROVIDERS: PCP Nurse Practitioner Family; Visit Provider Obstetrics & Gynecology ==

== ENCOUNTER 2023-04-28 10:16 | Outpatient (REF) | payer MEDICARE, SELFPAY ==
--- NOTE | ~2023-04-28 | MM_ITS ---
EXAMINATION: BONE DENSITOMETRY CLINICAL INDICATION: Menopause. COMPARISON: Previous BD dated 04/15/2021 and baseline BD dated 11/29/2007. TECHNIQUE: Using a Learn with [employer] DXA System (software version: 13.1) manufactured by [employer], dual-energy x-ray absorptiometry was performed of the lumbar spine and left hip. The images are of good technical quality. Summary results are attached. FINDINGS: LEFT FEMUR, NECK: Current: BMD 0.608 g/cm2, Z-score -1.4, T-score -3.1, osteoporosis. Prior: BMD 0.765 g/cm2. Baseline: BMD 0.725 g/cm2. LEFT FEMUR, TOTAL: Current: BMD 0.775 g/cm2, Z-score -0.4, T-score -1.8, osteopenia, 16.7% decrease from previous, 10.2% decrease from baseline (<5% change is not significant). Prior: BMD 0.930 g/cm2. Baseline: BMD 0.863 g/cm2. AP SPINE L1-L4: Current: BMD 1.319 g/cm2, Z-score 2.9, T-score 1.2, normal, 3.5% increase from previous, 11.3% increase from baseline (<5% change is not significant). Prior: BMD 1.274 g/cm2. Baseline: BMD 1.185 g/cm2. IDENTIFIED RISK FACTORS: Menopause, history of fracture (adult). HISTORY OF FRACTURE: Wrist, other. MEDICATIONS: Calcium, vitamin D. MM/XR DEXA axial skeleton IMPRESSION: 1. DIAGNOSIS: Severe osteoporosis based on the lowest T-score value of -3.1 in the femur neck and history of fracture of wrist applying World Health Organization criteria. 2. 10-YEAR FRACTURE RISK PREDICTION, FRAX: According to the guidelines, FRAX calculation should only be performed on patients in the osteopenia bone density category. Therefore, FRAX was not performed on this patient. 3. Treatment Recommendations: NOF guidelines recommend consideration for treatment in postmenopausal women and men age 50 and older presenting with the following: -A hip or vertebral (clinical or morphometric) fracture. -T-score less than or equal to -2.5 at the femoral neck or spine after appropriate evaluation to exclude secondary causes. -Low bone mass at the hip or spine and a 10-year fracture probability by FRAX of greater than or equal to 3% for hip fracture or greater than or equal to 20% for major osteoporotic fracture based on the [place] adapted WHO algorithm. 4. Other Recommendations: All treatment decisions require clinical judgment and consideration of individual patient factors, including patient preferences, comorbidities, previous drug use, risk factors not captured in the FRAX model (e.g. frailty, falls, vitamin D deficiency, increased bone turnover, interval significant decline in bone density) and possible under or overestimation of fracture risk by FRAX. Additional medical evaluation for secondary cause of low bone mineral density may be appropriate. FUTURE SCAN RECOMMENDATION: People with diagnosed cases of osteoporosis or at high risk for fracture should have regular bone mineral density tests. For patients eligible for Medicare, routine testing is allowed once every 2 years. The testing frequency can be increased to one year for patients who have rapidly progressing disease, those who are receiving or discontinuing medical therapy to restore bone mass, or have additional risk factors.
== END 2023-04-28 10:17 | disposition home or self-care (01) ==
LOC: HO.MAMMO 10:16
PROVIDERS: PCP Internal Medicine; Visit Provider Internal Medicine
DX: Z12.31 Encounter for screening mammogram for malignant neoplasm of breast (principal); Z13.820 Encounter for screening for osteoporosis; Z78.0 Asymptomatic menopausal state
CPT/HCPCS: 77063; 77067; 77080

== ENCOUNTER → 2023-04-28 11:00 | Outpatient (BNV) | payer MEDICARE, SELFPAY | PROVIDERS: PCP Internal Medicine; Visit Provider Radiology Diagnostic Radiology | DX: Z12.31 Encounter for screening mammogram for malignant neoplasm of breast (principal) | CPT/HCPCS: 77063; 77067 ==

== ENCOUNTER 2023-07-11 10:45 | Outpatient (AMB) | payer MEDICARE, SELFPAY ==
--- NOTE | 2023-07-11 10:54 | A.OFFVIS_ITS ---
Intake Intake Visit Reasons: dexa follow up Allergies Sulfa (Sulfonamide Antibiotics) [SULFA(SULFONAMIDE ANTIBIOTICS)] Allergy (Severe, Verified 04/18/23 08:43) ANAPHYLAXIS HPI HPI Comments History of Present Illness Details The patient is presenting for follow up regarding DEXA scan results. T score @ spine and femoral Neck respectively were= +1.2 /-3.1 and bone mineral density increased 3.5% from previous and 11.3% from baseline at the spine level, and has decreased-6.7% from previous DEXA scan and-10.2% from baseline [facility] Medical History Former cigarette smoker Encounter to establish care (~04/23/21) Osteoarthritis Osteopenia Hematuria Hot flashes Surgical History H/O colonoscopy History of hand surgery History of tubal ligation History of tonsillectomy Family History Mother Breast cancer Pre-diabetes Father No problems noted. Social History Housing: House Alcohol intake: never Patient Tobacco Use Status: Former Tobacco user Tobacco use type: Cigarette e-Cigarette/Vaping Use: Never Used Second Hand Smoke Exposure: No service: No Current occupational status: employed Cognitive needs: No Hearing needs: No Vision needs: Yes (glasses) Female Reproductive History Menstrual Age of Menarche: 12 Review of Systems Const All systems reviewed & are unremarkable except as noted in HPI and below Reports as per HPI and Reports no additional complaints GI Reports no additional complaints Reports no additional complaints Assessment & Plan Assessment & Plan (1) Osteoporosis: Code(s): M81.0 - Age-related osteoporosis without current pathological fracture Plan: Discussed with the patient the results of the DEXA scan showing osteoporosis at the femur level with significant decrease in bone mineral density compared to previous DEXA scan and baseline measurement. Since osteoporosis is severe, will refer to Rheumatology for further management. All questions answered, the patient verbalized understanding. I spent a total of 20 minutes reviewing the chart, talking to the patient via video and documenting in the medical record. Telehealth Telehealth Location of provider rendering services: practice address Location of patient: address on file Patient Identification confirmed using: Name, : Yes Telehealth method: video Patient verbally consented to treatment: Yes Patient verbally consented to billing insurance company: Yes Patient informed of any privacy concerns related to visit: Yes Coding Level of Care Code Tele Est Pt Level 1 (75124) Diagnoses Osteoporosis M81.0
== END 2023-07-11 15:10 | disposition home or self-care (01) ==
LOC: HO.HWS 10:45
PROVIDERS: PCP Internal Medicine; Visit Provider Obstetrics & Gynecology
DX: M81.0 Age-related osteoporosis without current pathological fracture (principal)
CPT/HCPCS: 99211

== ENCOUNTER → 2023-07-11 10:45 | Outpatient (BNVA) | payer MEDICARE, SELFPAY | PROVIDERS: PCP Internal Medicine; Visit Provider Obstetrics & Gynecology ==

== ENCOUNTER 2023-09-14 08:57 | Outpatient (AMB) | payer MEDICARE, SELFPAY ==
--- NOTE | 2023-09-14 08:59 | MHC.PC.OV ---
Vital Signs 09/14/23 09:01 Height 4 ft 11 in Weight 148 lb 4 oz BMI 29.9 BP 128/68 Blood Pressure Location Lt brachial Position Sitting Pulse 72 Pulse Source Pulse Oximeter Pulse Oximetry (%) 99 Oxygen Delivery Method Room Air Intake Visit Reasons: Back pain Intake Note: Patient is here to follow up on Back pain, Osteopenia. 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: Not Required per policy Accompanied by: Self / Same As Patient Allergies Sulfa (Sulfonamide Antibiotics) [SULFA(SULFONAMIDE ANTIBIOTICS)] Allergy (Severe, Verified 09/14/23 09:23) ANAPHYLAXIS Medication List - Last Reconciled 09/14/23 by Sanjeev Sadler MD cyclobenzaprine 10 mg PO BEDTIME Tobacco use date assessed: 09/14/23 Fall risk assessment: No Falls in past year Last assessed Fall Risk: 09/14/23 Dental Screening Dental Screen Date: 09/14/23 Did you have a dental visit in the last 12 months?: Yes Did you have a dental problem in the last 6 months where you did not have access to dental care?: No Was dental information given to patient?: Patient has dentist HPI Back pain HPI Details 67-year-old female presents to the office to discuss her medical condition. Continues to have intermittent pain in her lower back. She was scheduled for a procedure at pain management service. However her suffered a stroke and she has postponed getting it done. She would like to get a refill on the cyclobenzaprine. Able to function and do activities of daily living. Up-to-date on her mammogram and colonoscopy. [facility] Medical History Former cigarette smoker Encounter to establish care (~04/23/21) Osteoarthritis Osteopenia Hematuria Hot flashes Surgical History H/O colonoscopy History of hand surgery History of tubal ligation History of tonsillectomy Family History Mother Breast cancer Pre-diabetes Father No problems noted. Social History Housing: House Alcohol intake: never Patient Tobacco Use Status: Former Tobacco user Tobacco use type: Cigarette e-Cigarette/Vaping Use: Never Used Second Hand Smoke Exposure: No service: No Current occupational status: retired Cognitive needs: No Hearing needs: No Vision needs: Yes (glasses) Female Reproductive History Menstrual Age of Menarche: 12 Questionnaire PHQ-9 Over the last 2 weeks, how often have you been bothered by any of the following problems? 1. Little interest or pleasure in doing things: not at all 2. Feeling down, depressed, or hopeless: not at all 3. Trouble falling or staying asleep, or sleeping too much: not at all 4. Feeling tired or having little energy: not at all 5. Poor appetite or overeating: not at all 6. Feeling bad about yourself - or that you are a failure or have let yourself or your family down: not at all 7. Trouble concentrating on things, such as reading the newspaper or watching television: not at all 8. Moving or speaking so slowly that other people could have noticed. Or the opposite - being so fidgety or restless that you have been moving around a lot more than usual: not at all 9. Thoughts that you would be better off or of hurting yourself in some way: not at all Total score: 0 Depression Screening Interpretation: Negative Depression Screening Done: Yes Source: Developed by Drs. Boris Otero, Sarina Flowers, Carlitos Zimmerman and colleagues, with an educational nemo from [employer]. Thrive Questionnaire Date Thrive assessed: 09/14/23 I am a: Patient What is your living situation today?: I have a steady place to live Within the past 12 months, did the food you bought not last and you didn't have the money to get more?: Never true Within the past 12 months, did you worry whether your food would run out before you got money to buy more?: Never true Do you have trouble paying for medicines?: No Do you have trouble getting transportation to medical appointments?: No Do you have trouble paying your heating and electricity bill?: No Do you have trouble taking care of your child, family member or friend?: No Do you have trouble with day-to-day activities such as bathing, preparing meals, shopping, managing finances, etc.?: No Are you currently unemployed and looking for a job?: No Are you interested in more education?: No Currently or been in a relationship where the following occur: no concerns reported THRIVE Score: 0 AUDIT C Alcohol Use Questionnaire (AUDIT-C) 1. How often do you have a drink containing alcohol?: Never Total Score: 0 OLGA-7 AMB Questionnaire OLGA-7 Date OLGA - 7 assessed: 09/14/23 Feeling nervous, anxious, or on edge: 3 = Nearly every day Not being able to stop or control worryin = Several days Worrying too much about different things: 1 = Several days Trouble relaxin = Nearly every day Being so restless that it is hard to sit still: 3 = Nearly every day Becoming easily annoyed or irritable: 3 = Nearly every day Feeling afraid as if something awful might happen: 3 = Nearly every day Total OLGA-7 score (0-4 normal; 5-9 mild; 10-14 moderate; 15-21 severe): 17 Source: Developed by Drs. Boris Otero, Sarina Flowers, Carlitos Zimmerman and colleagues, with an educational nemo from [employer]. Physical exam (Primary Care) Vital Signs: Last Vital Signs Pulse 72 09/14/23 09:01 BP 128/68 09/14/23 09:01 Pulse Ox 99 09/14/23 09:01 Oxygen Delivery Method Room Air 09/14/23 09:01 Care Plan Goal for BP management: Blood pressure is in range. BMI result Body Mass Index 29.9 Tobacco/Smoking Status: Tobacco use Status Tobacco use date assessed 09/14/23 09/14/23 09:08 Patient Tobacco Use Status Former Tobacco user 09/14/23 09:08 Tobacco use type Cigarette 09/14/23 09:08 e-Cigarette/Vaping Use Never Used 09/14/23 09:08 PHQ-9: PHQ-9 Score PHQ-9: Total score 0 09/14/23 09:08 Depression Screening Interpretation: Negative Thrive Assessment: Date of Thrive Assessment Date Thrive assessed 09/14/23 09/14/23 09:08 Currently or been in a relationship where the following occur: no concerns reported Const General: cooperative and healthy appearing Nutritional Appearance: well nourished Orientation/consciousness: patient oriented x3 Limitations: no limitations HENMT Head: Yes normal to inspection Eyes General: appearance normal, both eyes and all related structures Neck Neck: Yes normal visual inspection Chest Chest palpation & inspection: normal palpation of entire chest wall Resp Effort & Inspection: normal respiratory effort Neuro General: patient oriented x3 Assessment and Plan Assessment & Plan (1) Upper back pain: Code(s): M54.9 - Dorsalgia, unspecified Plan: Cyclobenzaprine prescription has been ordered. Blood work has been ordered. Patient had trace blood in the urine in the past. Urinalysis has been ordered. Will call with results. Orders: Orders Thyroid Stimulating Hormone Today M54.9 - Dorsalgia, unspecified UA and rflx microscopic Today M54.9 - Dorsalgia, unspecified Basic Metabolic Panel Today M54.9 - Dorsalgia, unspecified Complete Blood Count no Diff Today M54.9 - Dorsalgia, unspecified Lipid Panel Today M54.9 - Dorsalgia, unspecified Liver Panel Today M54.9 - Dorsalgia, unspecified Medications: Refilled cyclobenzaprine 10 mg PO BEDTIME 30 tabs 1RF Coding Level of Care Code Est Pt Level 4 (45461) Diagnoses Upper back pain M54.9
[2023-09-14 09:01] VITALS: BP 128/68; PULSE 72; O2SAT 99; BMI 29.9
== END 2023-09-14 09:26 | disposition home or self-care (01) ==
PROVIDERS: PCP Internal Medicine; Visit Provider Internal Medicine
DX: M54.9 Dorsalgia, unspecified (principal)
CPT/HCPCS: 99214

== ENCOUNTER 2023-11-02 08:21 | Outpatient (REF) | payer MEDICARE, SELFPAY ==
[2023-11-02 11:32] LABS: Hematocrit 43.3 % (37.0-47.0); Hemoglobin 14.1 g/dl (12.0-16.0); Mean Corpuscular HGB Conc 32.6 g/dl (31.0-35.0); Mean Corpuscular Hemoglobin 27.7 pg (27.0-33.0); Mean Corpuscular Volume 85.1 fL (80.0-98.0); Mean Platelet Volume 8.7 fL (9.4-12.3); Platelet Count 343 X10*3/uL (160-400); Red Blood Count 5.09 X10*6/uL (4.20-5.50); Red Cell Distribution Width 13.5 % (11.0-16.0); White Blood Count 6.6 X10*3/uL (4.8-10.8)
[2023-11-02 11:50] LABS: Appearance Urine Turbid; Color Urine Yellow; Glucose Urine UA Negative (Negative); Leukocyte Esterase Urine Moderate (2+) (Negative); Nitrite Urine Negative (Negative); PH 5.5 (5.0-9.0); UMIC TRIGGER UA YES; Urine Blood Small (1+) (Negative); Urine Ketones Negative (Negative); Urine Protein Negative (Neg-Trace)
[2023-11-02 11:57] LABS: Bacteria Urine None Seen (None Seen); Hyaline Casts Urine 0-2 /LPF (0-2)
[2023-11-02 12:08] LABS: Alanine Aminotransferase 14 U/L (0-31); Albumin Level 4.3 g/dL (3.5-5.0); Alkaline Phosphatase 81 U/L (39-117); Anion Gap 10 (12-20); Aspartate Amino Transferase 16 U/L (5-31); Bilirubin Direct 0.1 mg/dL (0.0-0.5); Bilirubin Total 0.4 mg/dL (0.0-1.0); Blood Urea Nitrogen 17 mg/dL (9-16); Calcium 9.5 mg/dL (8.4-10.2); Carbon Dioxide 28 mmol/L (22-29); Chloride 105 mmol/L (96-108); Cholesterol 257 mg/dL (<200); Estimated Glomerular Filt Rate > 60; Glucose Random 95 mg/dL (60-115); HDL Cholesterol 45 mg/dL (>40); LDL Cholesterol Calculated 186 mg/dL (<100); Sodium 139 mmol/L (135-145); Total Protein 7.7 g/dL (6.5-8.0); Triglycerides 133 mg/dL (<150)
[2023-11-02 12:26] LABS: Thyroid Stimulating Hormone 1.45 uIU/mL (0.32-4.0)
== END 2023-11-02 08:22 | disposition home or self-care (01) ==
LOC: HO.WFDLDS 08:21
PROVIDERS: Visit Provider Internal Medicine
DX: M54.9 Dorsalgia, unspecified (principal)
CPT/HCPCS: 36415; 80048; 80061; 80076; 81001; 84443; 85027

== ENCOUNTER 2024-03-22 15:04 | Outpatient (AMB) | payer MEDICARE, SELFPAY ==
--- NOTE | 2024-03-22 15:15 | A.OFFPC_ITS ---
Vital Signs 03/22/24 15:17 Height 4 ft 11 in Weight 153 lb 6 oz BMI 31.0 BP 120/68 Blood Pressure Location Lt brachial Position Sitting Pulse 79 Pulse Source Pulse Oximeter Pulse Oximetry (%) 98 Oxygen Delivery Method Room Air Intake Visit Reasons: 6 Month F/U Intake Note: Patient is here to follow up on Sacroiliitis, Osteoporosis. Pt decline flu shot today. Non Licensed Operator Required: No Metal Baler: Not Required per policy Accompanied by: Self / Same As Patient Allergies Sulfa (Sulfonamide Antibiotics) [SULFA(SULFONAMIDE ANTIBIOTICS)] Allergy (Severe, Verified 03/23/24 05:46) ANAPHYLAXIS Medication List - Last Reconciled 03/23/24 by Sanjeev Sadler MD atorvastatin 10 mg PO BEDTIME Tobacco use date assessed: 03/22/24 Fall risk assessment: No Falls in past year Last assessed Fall Risk: 03/22/24 Dental Screening Dental Screen Date: 09/14/23 HPI 6 Month F/U HPI Details 68-year-old female presents to the [facility] to discuss her chronic medical conditions. Patient is at baseline state of health. Since last office visit her lower back pain and hip pain has resolved. She is compliant with medications. She is only taking the statins at the moment. Able to function and do activities of daily living. Patient reports normal sleep and dietary patterns. No urinary incontinence. Does not have an exercise or diet regimen. [facility] Medical History (Updated 03/23/24 @ 05:52 by Sanjeev Sadler MD) Borderline hypercholesterolemia Former cigarette smoker Encounter to establish care (~04/23/21) Osteoarthritis Osteopenia Hematuria Hot flashes Surgical History H/O colonoscopy (~10/05/21) History of hand surgery History of tubal ligation History of tonsillectomy Family History Mother Breast cancer Pre-diabetes Father No problems noted. Social History Housing: House Alcohol intake: never Patient Tobacco Use Status: Former Tobacco user Tobacco use type: Cigarette e-Cigarette/Vaping Use: Never Used Second Hand Smoke Exposure: No service: No Current occupational status: retired Cognitive needs: No Hearing needs: No Vision needs: Yes (glasses) Female Reproductive History Menstrual Age of Menarche: 12 Questionnaire Thrive Questionnaire Date Thrive assessed: 09/14/23 OLGA-7 AMB Questionnaire OLGA-7 Date OLGA - 7 assessed: 09/14/23 Source: Developed by Drs. Borsi Otero, Sarina Flowers, Carlitos Zimmerman and colleagues, with an educational nemo from [employer]. Physical exam (Primary Care) Vital Signs: Last Vital Signs Pulse 79 03/22/24 15:17 BP 120/68 03/22/24 15:17 Pulse Ox 98 03/22/24 15:17 Oxygen Delivery Method Room Air 03/22/24 15:17 BMI result Body Mass Index 31.0 BMI Assessment/Plan discussion: High Tobacco/Smoking Status: Tobacco use Status Tobacco use date assessed 03/22/24 03/22/24 15:21 Patient Tobacco Use Status Former Tobacco user 03/22/24 15:21 Tobacco use type Cigarette 03/22/24 15:21 e-Cigarette/Vaping Use Never Used 03/22/24 15:21 Thrive Assessment: Date of Thrive Assessment Date Thrive assessed 09/14/23 03/22/24 15:21 Const General: cooperative and healthy appearing Nutritional Appearance: well nourished Orientation/consciousness: patient oriented x3 Limitations: no limitations HENMT Head: Yes normal to inspection Eyes General: appearance normal, both eyes and all related structures Neck Neck: Yes normal visual inspection Chest Chest palpation & inspection: normal palpation of entire chest wall Resp Effort & Inspection: normal respiratory effort Neuro General: patient oriented x3 Coding Level of Care Code Est Pt Level 4 (40653) Complex EM visit Add On G2211 Diagnoses Borderline hypercholesterolemia E78.00 Assessment & Plan Assessment & Plan (1) Borderline hypercholesterolemia: Code(s): E78.00 - Pure hypercholesterolemia, unspecified Category: Medical Plan: Fasting blood work has been ordered. Continue statins at same dosage. Uptodate on colonoscopy. Orders: Orders Lipid Panel Today Z13.220 - Encounter for screening for lipoid disorders UA and rflx microscopic Today Z13.220 - Encounter for screening for lipoid disorders Basic Metabolic Panel Today Z13.220 - Encounter for screening for lipoid disorders Liver Panel Today Z13.220 - Encounter for screening for lipoid disorders Thyroid Stimulating Hormone Today Z13.220 - Encounter for screening for lipoid disorders Complete Blood Count no Diff Today Z13.220 - Encounter for screening for lipoid disorders
[2024-03-22 15:17] VITALS: BP 120/68; PULSE 79; O2SAT 98; BMI 31.0
== END 2024-03-22 15:34 | disposition home or self-care (01) ==
LOC: HO.HMCH 15:05
PROVIDERS: PCP Internal Medicine; Visit Provider Internal Medicine
DX: E78.00 Pure hypercholesterolemia, unspecified (principal)

== ENCOUNTER → 2024-03-22 15:04 | Outpatient (BNVA) | payer MEDICARE, SELFPAY | PROVIDERS: PCP Internal Medicine; Visit Provider Internal Medicine | DX: E78.00 Pure hypercholesterolemia, unspecified (principal) | CPT/HCPCS: 99212 ==

== ENCOUNTER 2024-04-24 08:26 | Outpatient (AMB) | payer MEDICARE, SELFPAY ==
--- NOTE | 2024-04-24 08:29 | MHC.OFFVIS ---
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 No complaints. Last Pap/HPV was many years ago no history of abnormal Pap smear last 25 years Last Mammogram was BI-RADS 1 in 05/07 Last Colonoscopy was negative in 10/04, the recommendation was to repeat in 9-10 years Last DEXA scan was in 05/07 [facility] Medical History Borderline hypercholesterolemia Former cigarette smoker Encounter to establish care (~04/23/21) Osteoarthritis Osteopenia Hematuria Hot flashes Surgical History H/O colonoscopy (~10/05/21) History of hand surgery History of tubal ligation History of tonsillectomy Family History Mother Breast cancer Pre-diabetes Father No problems noted. Maternal Aunt Breast cancer Ovarian cancer Social History Housing: House Alcohol intake: never Patient Tobacco Use Status: Former Tobacco user Tobacco use type: Cigarette e-Cigarette/Vaping Use: Never Used Second Hand Smoke Exposure: No service: No Current occupational status: retired Cognitive needs: No Hearing needs: No Vision needs: Yes (glasses) Female Reproductive History Menstrual Age of Menarche: 12 Total pregnancies: 0 Date of Mammogram: 04/28/23 Date of last Bone Density Screenin04/28/23 Review of Systems Const All systems reviewed & are unremarkable except as noted in HPI and below Card Reports as per HPI Resp Reports as per HPI GI Reports as per HPI and Reports no additional complaints Reports as per HPI Physical Exam Vital Signs: Last Vital Signs BP 140/70 H 04/24/24 08:34 BMI result Body Mass Index 30.3 Const General: cooperative, healthy appearing and comfortable Chest Chest palpation & inspection: normal inspection of the chest and normal palpation of entire chest wall Breast/axilla inspection: normal inspection of the breasts and normal inspection of the axillae Breast/axilla palpation: normal palpation of the breasts, normal palpation of the axillae and no axillary lymphadenopathy Resp Effort & Inspection: normal respiratory effort Auscultation: clear to auscultation bilaterally Percussion: percussion normal Cardio Palpation: normal PMI Rate: regular rate Rhythm: regular rhythm Heart sounds: no murmurs and no rubs Peripheral pulses: Peripheral pulses 2+ throughout GI Inspection: Yes normal to inspection Palpation (GI): Soft to palpation, nontender, no guarding, not rigid and No hepatosplenomegaly present Percussion: Yes normal to percussion Auscultation: normal bowel sounds Rectal Exam - Female: deferred General: Yes bladder normal to palpation External Female Exam: No lesion Speculum Exam - Vagina: normal appearance of the vagina, normal palpation, normal vaginal discharge and not erythematous Speculum Exam - Cervix: normal appearance of the cervix and normal palpation Bimanual exam- vagina & uterus: normal bimanual exam, normal palpation, bladder normal to palpation, consistency normal, normal palpation and enlarged Bimanual Exam- Adnexa, other: normal adnexae, no masses and no tenderness Assessment & Plan Assessment & Plan (1) Well woman exam: Code(s): Z01.419 - Encounter for gynecological examination (general) (routine) without abnormal findings Category: Medical Plan: Co testing not indicated since the patient 's age is above 65 with no history of abnormal Pap smears last 25 years. Counseled the patient about the recommended dietary allowance of 1200 mg of Calcium & 800 IU of vitamin D. Mammogram scheduled on 05/01/2024. The patient was instructed to perform monthly self-breast exams and to schedule a 2 week DEXA scan follow-up appointment and an annual exam in a year; All questions answered and the patient verbalized understanding. (2) Enlarged uterus: Code(s): N85.2 - Hypertrophy of uterus Category: Medical Plan: Discussed with the patient the finding on pelvic exam, enlarged uterus. Pelvic ultrasound ordered. Instructions given to patient to schedule ultrasound follow-up appointment Orders: Orders US pelvic and transvaginal Today N85.2 - Hypertrophy of uterus Coding Level of Care Code Est Pt Prev Care >65y(37203) Diagnoses Well woman exam Z01.419 Enlarged uterus N85.2
[2024-04-24 08:34] VITALS: BP 140/70; BMI 30.3
== END 2024-04-24 09:16 | disposition home or self-care (01) ==
PROVIDERS: PCP Nurse Practitioner Family; Visit Provider Obstetrics & Gynecology
DX: Z01.419 Encounter for gynecological examination (general) (routine) without abnormal findings (principal); N85.2 Hypertrophy of uterus
CPT/HCPCS: 99397

== ENCOUNTER 2024-04-24 10:26 | Outpatient (REF) | payer MEDICARE, SELFPAY ==
--- NOTE | ~2024-04-24 | US_ITS ---
EXAMINATION: US PELVIS CLINICAL INFORMATION: Hypertrophy of uterus, postmenopausal. COMPARISON: CT abdomen and pelvis of 04/20/2021. Pelvic ultrasound of 03/25/2021. TECHNIQUE: Ultrasound of the pelvis is performed using both transabdominal and transvaginal transducers along with Doppler. Transvaginal imaging is performed due to inadequate visualization transabdominally. FINDINGS: The anteverted uterus measures 6.3 x 2.0 x 3.4 cm. The uterus appears atrophic. Endometrial thickness is 3 mm. There is a large 2.4 x 1.2 x 2.1 cm cystic structure with a few low-level internal echoes in the region of the endocervical canal, previously 1.8 x 1.2 x 1.8 cm on pelvic ultrasound of 03/25/[address] scan of 04/20/2021. Differential considerations include cyst such as a nabothian cyst or other cystic collection versus atypical fluid localized within the endometrial canal. Left ovary measures 1.2 x 0.6 x 1.4 cm, volume 0.6 mL and is grossly unremarkable. Right ovary is not visualized on transvaginal ultrasound images. A structure, possibly representing the right ovary, is difficult to confirm with transabdominal ultrasound images and measures 1.6 x 0.8 x 1.1 cm, volume 0.7 mL and is grossly unremarkable. Right ovary not visualized on pelvic ultrasound of 04/03/2021. US/US pelvic and transvaginal IMPRESSION: 1. The uterus appears atrophic. 2. Endometrial thickness is 3 mm. 3. A large 2.4 x 1.2 x 2.1 cm cystic structure with a few low-level internal echoes in the region of the endocervical canal, previously 1.8 x 1.2 x 1.8 cm on pelvic ultrasound of 03/25/[address] scan of 04/20/2021. Differential considerations include cyst such as a nabothian cyst or other cystic collection collection versus atypical fluid localized within the endometrial canal. This study was presented today to 04/24/2024 for interpretation. Stat results provided at this time as requested by referring provider. Electronically signed by: Nava Yost MD 04/24/2024 02:03 PM JULY
== END 2024-04-24 10:27 | disposition home or self-care (01) ==
LOC: HO.HMGCX 10:26
PROVIDERS: PCP Internal Medicine; Visit Provider Obstetrics & Gynecology
DX: Z01.411 Encounter for gynecological examination (general) (routine) with abnormal findings (principal); N85.2 Hypertrophy of uterus
CPT/HCPCS: 76830; 76856; 99397; 99459

== ENCOUNTER 2024-04-25 14:48 | Outpatient (REF) | payer MEDICARE, SELFPAY | END 2024-04-25 14:49 | disposition home or self-care (01) | LOC: HO.LNP 14:48 | PROVIDERS: PCP Internal Medicine; Visit Provider Obstetrics & Gynecology | DX: R93.5 Abnormal findings on diagnostic imaging of other abdominal regions, including retroperitoneum (principal); Z88.1 Allergy status to other antibiotic agents | CPT/HCPCS: 58100; 87070; 87205; 88305; 99212 ==

== ENCOUNTER 2024-04-25 14:48 | Outpatient (AMB) | payer MEDICARE, SELFPAY ==
--- NOTE | 2024-04-25 14:50 | A.OFFVIS_ITS ---
Intake Visit Reasons: Ultrasound results De Icer Finisher: De Icer Finisher Present (Tanesha) Accompanied by: Self / Same As Patient Allergies Sulfa (Sulfonamide Antibiotics) [SULFA(SULFONAMIDE ANTIBIOTICS)] Allergy (Severe, Verified 04/25/24 14:51) ANAPHYLAXIS Is last menstrual period known: Yes Last menstrual period: 03/13/20 Post menopausal: No Patient : No Do you need a note to return to daycare/school/sports/work: Yes (for surgery on tuesday) HPI Comments Details: Presenting for ultrasound follow-up done few days ago which showed the following: The anteverted uterus measures 6.3 x 2.0 x 3.4 cm. The uterus appears atrophic. Endometrial thickness is 3 mm. There is a large 2.4 x 1.2 x 2.1 cm cystic structure with a few low-level internal echoes in the region of the endocervical canal, previously 1.8 x 1.2 x 1.8 cm on pelvic ultrasound of 03/25/[address] scan of 04/20/2021. Differential considerations include cyst such as a nabothian cyst or other cystic collection versus atypical fluid localized within the endometrial canal. Left ovary measures 1.2 x 0.6 x 1.4 cm, volume 0.6 mL and is grossly unremarkable. Right ovary is not visualized on transvaginal ultrasound images. A structure, possibly representing the right ovary, is difficult to confirm with transabdominal ultrasound images and measures 1.6 x 0.8 x 1.1 cm, volume 0.7 mL and is grossly unremarkable. Right ovary not visualized on pelvic ultrasound of 04/03/2021. [facility] Medical History Borderline hypercholesterolemia Former cigarette smoker Encounter to establish care (~04/23/21) Osteoarthritis Osteopenia Hematuria Hot flashes Surgical History H/O colonoscopy (~10/05/21) History of hand surgery History of tubal ligation History of tonsillectomy Family History Mother Breast cancer Pre-diabetes Father No problems noted. Maternal Aunt Breast cancer Ovarian cancer Social History Housing: House Alcohol intake: never Patient Tobacco Use Status: Former Tobacco user Tobacco use type: Cigarette e-Cigarette/Vaping Use: Never Used Second Hand Smoke Exposure: No service: No Current occupational status: retired Cognitive needs: No Hearing needs: No Vision needs: Yes (glasses) Female Reproductive History Menstrual Age of Menarche: 12 Date of last menstrual period: 03/13/20 Total pregnancies: 2 Full term: 2 Review of Systems Const All systems reviewed & are unremarkable except as noted in HPI and below Card Reports as per HPI and Reports no additional complaints Resp Reports as per HPI and Reports no additional complaints GI Reports as per HPI and Reports no additional complaints Reports as per HPI Physical Exam Const General: cooperative, healthy appearing and comfortable Resp Effort & Inspection: normal respiratory effort Auscultation: clear to auscultation bilaterally Percussion: percussion normal Cardio Palpation: normal PMI Rate: regular rate Rhythm: regular rhythm Heart sounds: no murmurs and no rubs Peripheral pulses: Peripheral pulses 2+ throughout GI Inspection: Yes normal to inspection Palpation (GI): Soft to palpation, nontender, no guarding, not rigid and No hepatosplenomegaly present Percussion: Yes normal to percussion Auscultation: normal bowel sounds Rectal Exam - Female: deferred General: Yes no CVA tenderness External Female Exam: normal external appearance and normal appearance of the urethra Speculum Exam - Vagina: normal appearance of the vagina, normal palpation, no lesions and no masses Speculum Exam - Cervix: normal appearance of the cervix, normal palpation, no l esions, no masses, nontender and Other cervical findings present (No evidence of cyst, a stenosed cervix) Bimanual exam- vagina & uterus: normal bimanual exam, normal palpation, uterine size normal, normal palpation, uterine shape normal, No Cervical tenderness present and non-tender Bimanual Exam- Adnexa, other: normal adnexae Back/Spine/Pelvis Back: no CVA tenderness Office Procedures Endometrial Biopsy Details: The patient was counseled regarding the indication and benefits of endometrial sampling to rule out endometrial pathology including not limited to endometrial hyperplasia or endometrial cancer and others; The alternatives (Either do nothing vs. hysteroscopy D&C) & the risks were discussed with the patient including but not limited: pain, uterine perforation, bleeding, infection, possible injury to bladder, bowel, ureter, possible need for blood transfusion with all its possible risks. The patient verbalized understanding all questions answered and signed consent. The patient was placed into the dorsal lithotomy position; a speculum was inserted in the vagina. Using aseptic technique for the procedure, the cervix was cleansed with Betadine. The anterior lip of the cervix was grasped with a single tooth tenaculum. The cervix looked stenosed so cervical dilator was used to dilate the cervix. 2-3 cc of Jelly sticky material came out of the endocervix, fluid collection was sent for culture The uterus was sounded to 7 cm with a 4 mm Pipelle was used. Minimal Tissues samples were obtained and placed in formalin, in a patient labeled container and sent to the pathology department. The patient could not tolerate the procedure, procedure was aborted. The patient was discharged in good condition with the following instructions: Nothing in the vagina until the bleeding stops. No sex until the bleeding stops, to call if any of the following occurs: fever (>100.4), flu-like symptoms, abdominal pain, heavy bleeding, four smelling vaginal discharge. The patient was instructed to schedule a Follow up appointment in 2 weeks to discuss pathology results of the biopsy and treatment options. This note was generated with a voice recognition program. Some errors may have been overlooked during the review of this note. Sometimes these errors may affect the content or meaning of a given sentence. [id number] Biopsy Assessment & Plan Assessment & Plan (1) Abnormal ultrasound of endometrium: Comment: Endocervical/endometrial fluid collection versus cervical cyst Code(s): R93.5 - Abnormal findings on diagnostic imaging of other abdominal regions, including retroperitoneum Category: Medical Plan: Discussed with the patient the finding on ultrasound , possible differential diagnosis includes but not limited to cervical cyst, endocervical fluid structure/collection, possible atypical endocervical/endometrial fluid collection, although endometrial stripe measured 3 mm is associated with high negative predictive value for endometrial pathology given the persistent findings since 2020 and increase in its size, recommended endometrial/endocervical curettage to rule out endocervical/and the menstrual pathology including hyperplasia and/or malignancy or fluid collection. All questions answered, the patient verbalized understanding and agreed with the plan, see procedure note, procedure aborted after minimal tissue retrieved and after cervical dilatation secondary to cervical stenosis jelly fluid collection came out. Recommended hysteroscopy D&C possible polypectomy/endocervical curette to rule out endometrial/endocervical pathology. Discussed with the patient the procedure , all benefits and risks including but not limited to inability to complete the procedure , insufficient endometrial tissue for a complete evaluation of the endometrial cavity , bleeding, infection, possible need for blood transfusion with all its risk ( HIV,syphilis, Hepatitis, anaphylaxis shock, others..), injury to bladder, rectum, possible need for laparoscopy/laparotomy or hysterectomy. The patient verbalized understanding and signed the consent. Instructions given the patient to stay NPO after midnight the day prior to the procedure and to take only the specific medication (s) discussed the morning of the surgical procedure and to schedule a 2 week postoperative appointment Orders: Orders Routine Culture w Gram Stain Today R93.5 - Abnormal findings on diagnostic imaging of other abdominal regions, including retroperitoneum Surgical Today R93.5 - Abnormal findings on diagnostic imaging of other abdominal regions, including retroperitoneum AMB Endometrial Biopsy Today R93.5 - Abnormal findings on diagnostic imaging of other abdominal regions, including retroperitoneum Coding Level of Care Code Est Pt Level 3 (26470) Diagnoses Abnormal ultrasound of endometrium R93.5 CPT Codes Endometrial Biopsy - CPT: 46680-[id number] Biopsy ([id number])
== END 2024-04-25 15:35 | disposition home or self-care (01) ==
LOC: HO.HWS 14:48
PROVIDERS: PCP Internal Medicine; Visit Provider Obstetrics & Gynecology
DX: R93.5 Abnormal findings on diagnostic imaging of other abdominal regions, including retroperitoneum (principal)
CPT/HCPCS: 58100; 99213

== ENCOUNTER 2024-05-01 09:19 | Outpatient (REF) | payer MEDICARE, SELFPAY | END 2024-05-01 09:20 | disposition home or self-care (01) | LOC: HO.MAMMO 09:19 | PROVIDERS: PCP Internal Medicine; Visit Provider Internal Medicine | DX: Z12.31 Encounter for screening mammogram for malignant neoplasm of breast (principal) | CPT/HCPCS: 77063; 77067 ==

== ENCOUNTER → 2024-05-01 09:30 | Outpatient (BNV) | payer MEDICARE, SELFPAY | PROVIDERS: PCP Internal Medicine; Visit Provider Internal Medicine | DX: Z12.31 Encounter for screening mammogram for malignant neoplasm of breast (principal) | CPT/HCPCS: 77063; 77067 ==

== ENCOUNTER 2024-05-18 11:18 | Day surgery (SDC) | payer MEDICARE, SELFPAY ==
[2024-05-15 08:32] VITALS: BMI 30.9
--- NOTE | 2024-05-15 14:34 | HO.ANESPROP2 ---
Documented by User: Mary Rodas NP 05/15/24 14:35 HPI - Anesthesia Eval Consult details Narrative: 68yo F for D&C Hysteroscopy,possible myomectomy,possible polypectomy,with Endocervical Curettage PMFSH Active Problems Active Problems: All Active Problems Abnormal ultrasound of endometrium (Acute) Enlarged uterus (Acute) Osteoporosis (Acute) Adult general medical exam (Acute) Sacroiliac joint dysfunction of right side (Acute) Sacroiliitis (Acute) Spondylosis of lumbar region without myelopathy or radiculopathy (Acute) Back pain (Acute) Recurrent UTI (Acute) Upper back pain (Acute) Upper back strain (Acute) Right shoulder pain (Acute) Left hip pain (Acute) Osteopenia (Acute) Osteoarthritis of hips, bilateral (Acute) Diabetes mellitus screening (Acute) Menopause (Acute) Well woman exam (Acute) Microscopic hematuria (Acute) Urinary frequency (Acute) Uterine prolapse (Acute) Urinary tract infection (Acute) Borderline hypercholesterolemia (Acute) Hematuria (Acute) Past Medical History Medical History (Updated 04/25/24 @ 15:07 by Galdino Virk MD) Borderline hypercholesterolemia Former cigarette smoker Osteoarthritis Osteopenia Hematuria Hot flashes Encounter to establish care (~04/23/21) Family History Family History Mother Breast cancer Pre-diabetes Father No problems noted. Maternal Aunt Breast cancer Ovarian cancer Family history of problems with anesthesia: No Surgical History Surgical History H/O colonoscopy (~10/05/21) History of hand surgery History of tubal ligation History of tonsillectomy History of Problems with Anesthesia: No Social History Social History Housing: House Are you a primary personal care service provider to a significant other at home: No Do you presently have visiting nurse or other home services: No Alcohol intake: never Patient Tobacco Use Status: Former Tobacco user Tobacco use type: Cigarette e-Cigarette/Vaping Use: Never Used Second Hand Smoke Exposure: No Use of substances other than those prescribed or required for medical reasons: No Have you been hit, kicked, punched, or otherwise hurt by someone within the past year? If so, by whom?: No Are you DNR?: No Advance Directives: No Advance Directives Information Provided: Yes Advance Directives on File: No Recently lost weight without trying: No Nutrition Risks: No Nutritional Risk Patient : No service: No Current occupational status: retired Cognitive needs: No Hearing needs: No Vision needs: Yes (glasses) Meds Allergies Allergy/AdvReac Type Severity Reaction Status Date / Time Sulfa (Sulfonamide Allergy Severe ANAPHYLAXIS Verified 05/18/24 11:52 Antibiotics) [SULFA(SULFONAMIDE ANTIBIOTICS)] Home Medications ?Medication ?Instructions ?Recorded ?Confirmed ?Last Taken ?Type naproxen sodium 220 mg tablet 220 mg PO BID PRN Pain, Mild 05/18/24 05/18/24 05/17/24 History (Geno) Exam Height,Weight and Vital Signs: Height 4 ft 11 in Weight 69.4 kg Assessment and Plan Assessment Anesthesia Assessment: Chart Reviewed Final Anesthetic Review Family History of Problems with Anesthesia: No History of Problems with Anesthesia: No Documented by User: Adan Marcelo MD 05/18/24 13:40 PMFSH Past Medical History Medical History (Updated 04/25/24 @ 15:07 by Galdino Virk MD) Borderline hypercholesterolemia Former cigarette smoker Osteoarthritis Osteopenia Hematuria Hot flashes Encounter to establish care (~04/23/21) Family History Family History Mother Breast cancer Pre-diabetes Father No problems noted. Maternal Aunt Breast cancer Ovarian cancer Surgical History Surgical History H/O colonoscopy (~10/05/21) History of hand surgery History of tubal ligation History of tonsillectomy Social History Social History Housing: House Are you a primary personal care service provider to a significant other at home: No Do you presently have visiting nurse or other home services: No Alcohol intake: never Patient Tobacco Use Status: Former Tobacco user Tobacco use type: Cigarette e-Cigarette/Vaping Use: Never Used Second Hand Smoke Exposure: No Use of substances other than those prescribed or required for medical reasons: No Have you been hit, kicked, punched, or otherwise hurt by someone within the past year? If so, by whom?: No Are you DNR?: No Advance Directives: No Advance Directives Information Provided: Yes Advance Directives on File: No Recently lost weight without trying: No Nutrition Risks: No Nutritional Risk Patient : No service: No Current occupational status: retired Cognitive needs: No Hearing needs: No Vision needs: Yes (glasses) Meds Allergies Allergy/AdvReac Type Severity Reaction Status Date / Time Sulfa (Sulfonamide Allergy Severe ANAPHYLAXIS Verified 05/18/24 11:52 Antibiotics) [SULFA(SULFONAMIDE ANTIBIOTICS)] Home Medications ?Medication ?Instructions ?Recorded ?Confirmed ?Last Taken ?Type naproxen sodium 220 mg tablet 220 mg PO BID PRN Pain, Mild 05/18/24 05/18/24 05/17/24 History (Geno) Exam Airway Mallampati Class: II TM Dist: <=3cm Neck ROM: Full Heart: ok Lungs: ok Assessment and Plan Assessment Anesthesia Assessment: Anesthesia Plan Discussed Final Anesthetic Review NPO: Yes ASA Class: II Final Preanesthetic Review: No Changes in Pt Med Stat, Meds/Allgs Chart Reviewed, Consent Obtained/Reviewed, Anes Risks/Benef Reviewed and DNR Form (If Appl.) Patient Risk: Intermediate Procedure Risk: Low Anesthetic Plan Anesthetic Plan: GA and Agree w/ Assess. and Plan Disposition: Standard PACU
[2024-05-18 11:27] VITALS: BMI 30.9
[2024-05-18 11:51] VITALS: BP 154/62; PULSE 74; RESP 14; TEMP 37; O2SAT 96
--- NOTE | 2024-05-18 12:36 | MHC.SHP ---
Pre-Procedural Eval Section A - 24 Hr Update-Section A only Date of Service: 05/18/24 The patient is an INPATIENT: No Changes since office visit: No Cold of Flu in the past 2 weeks, No New Medical Problems, No Changes in Medication and No Patient answered all questions The patient has been examined within 24 hours of the surgical procedure. The History & Physical has been completed within 30 days and I have reviewed it.: Yes Section B - Complete if H&P > 30 days Chief Complaint: Abnormal findings on diagnostic imaging of other Allergies: Allergies Allergy/AdvReac Type Severity Reaction Status Date / Time Sulfa (Sulfonamide Allergy Severe ANAPHYLAXIS Verified 05/18/24 11:52 Antibiotics) [SULFA(SULFONAMIDE ANTIBIOTICS)] Plan Diagnosis/Plan: Unchanged I have reviewed the history and physical and performed a pertinent physical examination on my patient. No changes have occurred unless specified. Time Spent With Patient Time: Total time managing care of this patient today ____ minutes.
--- NOTE | 2024-05-18 14:13 | PM.OP ---
Brief Operative Note Date of Service: 05/18/24 Pre-op diagnosis: Abnormal endometrium by ultrasound Post-op diagnosis: same (Lower uterine segment mucus collection, normal endometrial cavity and endocervical canal) Procedure: Hysteroscopy D&C Surgeon: Galdino Virk MD Anesthesia: GLMA Was an Software Tools Developer used for this Procedure?: No Estimated blood loss (mL): 0 Pathology: other (Endometrial Scrapping.) Condition: stable Disposition: PACU
--- NOTE | 2024-05-18 14:14 | P.OP_ITS ---
Operative Note Operative Note Date of Service: 05/18/24 Narrative: Preop Diagnosis: Abnormal endometrium by ultrasound Operation: Diagnostic Hysteroscopy, Dilataion & Curettage Post Op Diagnosis: Mucus collection in the lower uterine segment, Normal endometrial cavity/endocervical canal QBL: Minimal Anesthesia: GLMA Surgeon: Galdino Virk MD Application Architect Manager: None Complication: None Pathology: Endometrial Scrapings, endocervical curettage Procedure: The patient was put in the dorsal lithotomy position, scrubbed, and draped in the usual manner. A sterile speculum was inserted in the patient's vagina. The anterior lip of the cervix was grasped with a single tooth tenaculum. The cervix was dilated up to 5 mm, 3 cc mucus fluid collection came out, then the scope was inserted in the patient's uterus. Inspection revealed Normal endometrial cavity; the scope was removed from the endometrial cavity , sharp curettings was carried on with minimal amount of tissues retrieved. Endocervical curettage was done afterwards. At the end of the procedure, all instruments were taken out of the patient uterine and vaginal cavity. The single tooth tenaculum was removed and homeostasis was assured using pressure,. The patient tolerated the procedure well and was transferred to the PACU in a stable condition.
[2024-05-18 14:23] VITALS: BP 95/41; PULSE 73; RESP 16; TEMP 36.1; O2SAT 97
[2024-05-18 14:28] VITALS: BP 102/51; PULSE 69; RESP 16; O2SAT 97
[2024-05-18 14:33] VITALS: BP 111/50; PULSE 64; RESP 16; O2SAT 97
[2024-05-18 14:38] VITALS: BP 120/52; PULSE 62; RESP 16; O2SAT 98
[2024-05-18] MEDS: Acetaminophen 325 MG TABLET 975 MG PO (14:45)
[2024-05-18 14:52] VITALS: BP 124/49; PULSE 61; RESP 20; TEMP 36.3; O2SAT 97
== END 2024-05-18 15:09 | disposition home or self-care (01) ==
PROVIDERS: PCP Internal Medicine; Visit Provider Obstetrics & Gynecology
PROC: 0UDB8ZZ Extraction of Endometrium, Via Natural or Artificial Opening Endoscopic (ICD-10-PCS; CPT 58558; principal; 2024-05-18 14:20)
DX: R93.5 Abnormal findings on diagnostic imaging of other abdominal regions, including retroperitoneum (principal); N85.8 Other specified noninflammatory disorders of uterus; N95.1 Menopausal and female climacteric states; R23.2 Flushing; M85.80 Other specified disorders of bone density and structure, unspecified site; R31.9 Hematuria, unspecified; Z79.1 Long term (current) use of non-steroidal anti-inflammatories (NSAID); Z88.2 Allergy status to sulfonamides; Z98.51 Tubal ligation status; Z87.891 Personal history of nicotine dependence
CPT/HCPCS: 58558; 88305; J1885; J2003; J2405; J2704; J3010

== ENCOUNTER → 2024-05-18 11:18 | Outpatient (BNV) | payer MEDICARE, SELFPAY | PROVIDERS: PCP Internal Medicine; Visit Provider Obstetrics & Gynecology | DX: R93.5 Abnormal findings on diagnostic imaging of other abdominal regions, including retroperitoneum (principal) | CPT/HCPCS: 58558 ==

== ENCOUNTER 2024-05-22 12:32 | Outpatient (AMB) | payer MEDICARE, SELFPAY ==
--- NOTE | 2024-05-22 12:33 | MHC.OFFVIS ---
Intake Visit Reasons: post op Allergies Sulfa (Sulfonamide Antibiotics) [SULFA(SULFONAMIDE ANTIBIOTICS)] Allergy (Severe, Verified 05/18/24 11:52) ANAPHYLAXIS HPI Comments Details: The patient scheduled a telehealth visit post hysteroscopy D&C/ECC no complaints minimal vaginal bleeding no feverishness chills or abdominal pain. The pathology showed the following: A. Endometrium, curettage: Scant benign atrophic endometrium and benign endocervical glandular epithelium; no atypia or carcinoma. B. Endocervix, curettage: Benign endocervical glandular and squamous epithelium with inflammation [facility] Medical History Borderline hypercholesterolemia Former cigarette smoker Osteoarthritis Osteopenia Hematuria Hot flashes Encounter to [facility] care (~04/23/21) Surgical History H/O colonoscopy (~10/05/21) History of hand surgery History of tubal ligation History of tonsillectomy Family History Mother Breast cancer Pre-diabetes Father No problems noted. Maternal Aunt Breast cancer Ovarian cancer Social History Housing: House Are you a primary director career to a significant other at home: No Do you presently have visiting nurse or other home services: No Alcohol intake: never Comment: medicated Patient Tobacco Use Status: Former Tobacco user Tobacco use type: Cigarette e-Cigarette/Vaping Use: Never Used Second Hand Smoke Exposure: No service: No Current occupational status: retired Cognitive needs: No Hearing needs: No Vision needs: Yes (glasses) Female Reproductive History Menstrual Age of Menarche: 12 Review of Systems Const All systems reviewed & are unremarkable except as noted in HPI and below Reports as per HPI and Reports no additional complaints GI Reports no additional complaints Reports no additional complaints Telehealth Telehealth Telehealth Platform: Telephone Location of provider rendering services: practice address Location of patient: address on file Patient Identification confirmed using: Name, : Yes Telehealth method: video Patient verbally consented to treatment: Yes Patient verbally consented to billing insurance company: Yes Patient informed of any privacy concerns related to visit: Yes Assessment & Plan Assessment & Plan (1) Abnormal ultrasound of endometrium: Comment: Endocervical/endometrial fluid collection Code(s): R93.5 - Abnormal findings on diagnostic imaging of other abdominal regions, including retroperitoneum Category: Medical Plan: Discussed with the patient the intraoperative findings with collection of fluid in the endocervical/lower uterine segment, normal endocervical and endometrial cavity and normal endometrial endocervical pathology. All questions answered, the patient verbalized understanding. Instructions given the patient to call of any vaginal bleeding spotting will proceed with further management/ endometrial sampling. All questions answered the patient verbalized understanding. I spent a total of 20 minutes reviewing the chart, talking to the patient via video and documenting in the medical record. Coding Level of Care Code Tele Est Pt Level 3 (66863) Diagnoses Abnormal ultrasound of endometrium R93.5
== END 2024-05-22 12:56 | disposition home or self-care (01) ==
LOC: HO.HWS 12:32
PROVIDERS: PCP Internal Medicine; Visit Provider Obstetrics & Gynecology
DX: R93.5 Abnormal findings on diagnostic imaging of other abdominal regions, including retroperitoneum (principal)
CPT/HCPCS: 99213

== ENCOUNTER → 2024-05-22 12:32 | Outpatient (BNVA) | payer MEDICARE, SELFPAY | PROVIDERS: PCP Internal Medicine; Visit Provider Obstetrics & Gynecology ==

== ENCOUNTER 2024-08-01 08:46 | Outpatient (REF) | payer MEDICARE, SELFPAY ==
[2024-08-01 11:32] LABS: Hematocrit 42.9 % (37.0-47.0); Hemoglobin 13.9 g/dl (12.0-16.0); Mean Corpuscular HGB Conc 32.4 g/dl (31.0-35.0); Mean Corpuscular Hemoglobin 26.8 pg (27.0-33.0); Mean Corpuscular Volume 82.8 fL (80.0-98.0); Mean Platelet Volume 8.8 fL (9.4-12.3); Platelet Count 350 X10*3/uL (160-400); Red Blood Count 5.18 X10*6/uL (4.20-5.50); Red Cell Distribution Width 13.5 % (11.0-16.0); White Blood Count 6.4 X10*3/uL (4.8-10.8)
[2024-08-01 11:39] LABS: Appearance Urine Turbid; Color Urine Yellow; Glucose Urine UA Negative (Negative); Leukocyte Esterase Urine Moderate (2+) (Negative); Nitrite Urine Negative (Negative); PH 5.5 (5.0-9.0); Specific Gravity - Urine 1.025 (1.005-1.025); UMIC TRIGGER UA YES; Urine Blood Moderate (2+) (Negative); Urine Ketones Negative (Negative); Urine Protein Negative (Neg-Trace)
[2024-08-01 11:52] LABS: Bacteria Urine 1+ (None Seen); Hyaline Casts Urine 0-2 /LPF (0-2); Squamous Epithelial Cell Urine >20 /HPF (0-2); WBC Urine 21-50 /HPF (0-5)
[2024-08-01 12:03] LABS: Alanine Aminotransferase 19 U/L (0-31); Albumin Level 4.2 g/dL (3.5-5.0); Alkaline Phosphatase 94 U/L (39-117); Anion Gap 11 (12-20); Aspartate Amino Transferase 20 U/L (5-31); Bilirubin Direct 0.2 mg/dL (0.0-0.5); Bilirubin Total 0.4 mg/dL (0.0-1.0); Blood Urea Nitrogen 17 mg/dL (9-16); Calcium 9.4 mg/dL (8.4-10.2); Carbon Dioxide 27 mmol/L (22-29); Chloride 107 mmol/L (96-108); Cholesterol 175 mg/dL (<200); Estimated Glomerular Filt Rate > 60; Glucose Random 89 mg/dL (60-115); HDL Cholesterol 42 mg/dL (>40); LDL Cholesterol Calculated 109 mg/dL (<100); Potassium 3.8 mmol/L (3.3-5.1); Sodium 141 mmol/L (135-145); Total Protein 7.9 g/dL (6.5-8.0); Triglycerides 121 mg/dL (<150)
[2024-08-01 12:06] LABS: Thyroid Stimulating Hormone 2.06 uIU/mL (0.32-4.0)
== END 2024-08-01 08:47 | disposition home or self-care (01) ==
LOC: HO.WFDLDS 08:46
PROVIDERS: Visit Provider Internal Medicine
DX: Z13.220 Encounter for screening for lipoid disorders (principal); M54.9 Dorsalgia, unspecified
CPT/HCPCS: 36415; 80048; 80061; 80076; 81001; 84443; 85027

== ENCOUNTER 2024-09-03 09:44 | Outpatient (REF) | payer MEDICARE, SELFPAY ==
[2024-09-03 10:42] LABS: Appearance Urine Clear; Color Urine Yellow; Glucose Urine UA Negative (Negative); Leukocyte Esterase Urine Trace (Negative); Nitrite Urine Negative (Negative); UMIC TRIGGER UA YES; Urine Blood Trace (Negative); Urine Ketones Trace mg/dL (Negative); Urine Protein Negative (Neg-Trace)
[2024-09-03 10:48] LABS: Bacteria Urine None Seen (None Seen); Hyaline Casts Urine 0-2 /LPF (0-2); WBC Urine 0-5 /HPF (0-5)
== END 2024-09-03 09:45 | disposition home or self-care (01) ==
LOC: HO.LAB 09:44
PROVIDERS: PCP Internal Medicine; Visit Provider Internal Medicine
DX: M54.9 Dorsalgia, unspecified (principal)
CPT/HCPCS: 81001

== ENCOUNTER 2024-09-20 09:50 | Outpatient (AMB) | payer MEDICARE, SELFPAY ==
--- NOTE | 2024-09-20 09:52 | A.OFFPC_ITS ---
Vital Signs 09/20/24 09:54 Height 4 ft 11 in Weight 151 lb 4 oz BMI 30.5 BP 120/64 Blood Pressure Location Lt brachial Position Sitting Pulse 83 Pulse Source Pulse Oximeter Temp 97.5 F Temp Source Temporal Artery Scan Pulse Oximetry (%) 98 Oxygen Delivery Method Room Air Intake Visit Reasons: 6 month f/u Intake Note: Patient is here to follow up on Hypercholesterolemia, Back pain, Sacroiliitis. Color Laboratory Technician Required: No Scenic Artist: Not Required per policy Accompanied by: Self / Same As Patient Allergies Sulfa (Sulfonamide Antibiotics) [SULFA(SULFONAMIDE ANTIBIOTICS)] Allergy (Severe, Verified 09/20/24 10:37) ANAPHYLAXIS Medication List - Last Reconciled 09/20/24 by Sanjeev Sadler MD atorvastatin 10 mg PO BEDTIME naproxen sodium (Aleve) 220 mg PO BID PRN Tobacco use date assessed: 09/20/24 Fall risk assessment: No Falls in past year Last assessed Fall Risk: 09/20/24 Dental Screening Dental Screen Date: 09/20/24 Did you have a dental visit in the last 12 months?: Yes Did you have a dental problem in the last 6 months where you did not have access to dental care?: No Was dental information given to patient?: Patient has dentist [facility] Medical History Borderline hypercholesterolemia Former cigarette smoker Osteoarthritis Osteopenia Hematuria Hot flashes Encounter to establish care (~04/23/21) Surgical History H/O colonoscopy (~10/05/21) History of hand surgery History of tubal ligation History of tonsillectomy Family History Mother Breast cancer Pre-diabetes Father No problems noted. Maternal Aunt Breast cancer Ovarian cancer Social History Housing: House Are you a primary vision care associate to a significant other at home: No Do you presently have visiting nurse or other home services: No Alcohol intake: never Comment: medicated Patient Tobacco Use Status: Former Tobacco user Tobacco use type: Cigarette e-Cigarette/Vaping Use: Never Used Second Hand Smoke Exposure: Yes service: No Current occupational status: retired Cognitive needs: No Hearing needs: No Vision needs: Yes (glasses) Female Reproductive History Menstrual Age of Menarche: 12 Questionnaire PHQ-9 Over the last 2 weeks, how often have you been bothered by any of the following problems? 1. Little interest or pleasure in doing things: not at all 2. Feeling down, depressed, or hopeless: not at all 3. Trouble falling or staying asleep, or sleeping too much: not at all 4. Feeling tired or having little energy: not at all 5. Poor appetite or overeating: not at all 6. Feeling bad about yourself - or that you are a failure or have let yourself or your family down: not at all 7. Trouble concentrating on things, such as reading the newspaper or watching television: not at all 8. Moving or speaking so slowly that other people could have noticed. Or the opposite - being so fidgety or restless that you have been moving around a lot more than usual: not at all 9. Thoughts that you would be better off or of hurting yourself in some way: not at all Total score: 0 Depression Screening Interpretation: Negative Depression Screening Done: Yes Source: Developed by Drs. Boris Otero, Sarina Flowers, Carlitos Zimmerman and colleagues, with an educational nemo from [employer]. Thrive Questionnaire Date Thrive assessed: 09/20/24 I am a: Patient What is your living situation today?: I have a steady place to live Within the past 12 months, did the food you bought not last and you didn't have the money to get more?: Never true Within the past 12 months, did you worry whether your food would run out before you got money to buy more?: Never true Do you have trouble paying for medicines?: No Do you have trouble getting transportation to medical appointments?: No Do you have trouble paying your heating and electricity bill?: No Do you have trouble taking care of your child, family member or friend?: No Do you have trouble with day-to-day activities such as bathing, preparing meals, shopping, managing finances, etc.?: No Are you currently unemployed and looking for a job?: No Are you interested in more education?: No Please select the resources that you would like help with: None Currently or been in a relationship where the following occur: I choose not to answer THRIVE Score: 0 AUDIT C Alcohol Use Questionnaire (AUDIT-C) 1. How often do you have a drink containing alcohol?: Never Total Score: 0 OLGA-7 AMB Questionnaire OLGA-7 Date OLGA - 7 assessed: 09/20/24 Feeling nervous, anxious, or on edge: 3 = Nearly every day Not being able to stop or control worryin = Nearly every day Worrying too much about different things: 3 = Nearly every day Trouble relaxin = Nearly every day Being so restless that it is hard to sit still: 3 = Nearly every day Becoming easily annoyed or irritable: 3 = Nearly every day Feeling afraid as if something awful might happen: 3 = Nearly every day Total OLGA-7 score (0-4 normal; 5-9 mild; 10-14 moderate; 15-21 severe): 21 Source: Developed by Drs. Boris Otero, Sarina Flowers, Carlitos Zimmerman and colleagues, with an educational nemo from [employer]. Physical exam (Primary Care) Vital Signs: Last Vital Signs Temp 97.5 F 09/20/24 09:54 Pulse 83 09/20/24 09:54 BP 120/64 09/20/24 09:54 Pulse Ox 98 09/20/24 09:54 Oxygen Delivery Method Room Air 09/20/24 09:54 BMI result Body Mass Index 30.5 Tobacco/Smoking Status: Tobacco use Status Tobacco use date assessed 09/20/24 09/20/24 10:00 Patient Tobacco Use Status Former Tobacco user 09/20/24 10:00 Tobacco use type Cigarette 09/20/24 10:00 e-Cigarette/Vaping Use Never Used 09/20/24 10:00 PHQ-9: PHQ-9 Score PHQ-9: Total score 0 09/20/24 10:00 Depression Screening Interpretation: Negative Thrive Assessment: Date of Thrive Assessment Date Thrive assessed 09/20/24 09/20/24 10:00 Currently or been in a relationship where the following occur: I choose not to answer Coding Level of Care Code Est Pt Level 4 (61414) Complex EM visit Add On G2211 Diagnoses Sacroiliitis M46.1 Assessment & Plan Assessment & Plan (1) Sacroiliitis: Code(s): M46.1 - Sacroiliitis, not elsewhere classified Category: Medical Plan: Recent exacerbation in symptoms is due to her underlying anxiety. Sole vision care associate for her who is disabled by a stroke. Advised her to take the muscle relaxant every day. Follow up in two weeks. Plan History of Present Illness The patient is a 68-year-old female presenting with musculoskeletal pain and recurrent urinary tract infections. She reports ongoing pain affecting her hips, back, neck, shoulders, and ribs, which has worsened over time, hindering daily activities and sleep quality. Concurrently, she experiences recurrent UTIs with frequent urination at night, despite antibiotic treatment. The patient has a history of prolonged anxiety, which has worsened in recent years, partly due to her responsibilities in caring for her ailing . This anxiety is suspected to exacerbate her muscular tension, contributing to her overall discomfort. 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 - Responsible for household duties both indoors and outdoors. - Reports chronic anxiety since childhood, exacerbated over the past four years. - Experiences interference with sleep due to nocturnal urination and anxiety. Review of Systems - Musculoskeletal: Reports pain and burning in hips, back, neck, shoulders, and ribs. - Genitourinary: Reports frequent nocturnal urination. Denies burning during urination. - Psychological: Reports chronic anxiety and stress. Physical Exam General: Cooperative and healthy appearing Nutritional Appearance: Well nourished Orientation/consciousness: Patient oriented x3 Limitations: No limitations Head: Normal to inspection General: Appearance normal, both eyes and all related structures Neck: Normal visual inspection Chest: Normal palpation of entire chest wall Respiratory: N ormal respiratory effort Neurology: Patient oriented x3, but exhibits signs of anxiety and stress-related tension. Results - Labs: Presence of white blood cells in urine was noted. - Diagnostics: Previous urology scope revealed no structural abnormalities. Plan 1. Anxiety Disorder - Trial of clonazepam 0.5 mg, with a follow-up to assess effectiveness in anxiety and muscle relaxation. 2. Musculoskeletal Pain - Prescribed muscle relaxant to improve sleep quality and address pain. 3. Recurrent Urinary Tract Infections - Recommended further evaluation by child welfare caseworker or urologist for underlying causes of recurrent UTIs. Discussion Notes I discussed with the patient the role anxiety may play in her musculoskeletal symptoms, advising a trial of clonazepam to manage anxiety and explore its effectiveness in reducing muscle pain. Considering her recurrent UTIs, I recommended further urinary evaluation by a specialist to rule out issues such as bladder retention or prolapse. It was agreed the patient will use muscle relaxants to improve her sleep quality and pain. We stressed the importance of incorporating rest and relaxation into her daily routine to help manage stress and anxiety. Patient Instructions - Start clonazepam 0.5 mg, one tablet in the morning, and one at night. - Use muscle relaxants at night to improve sleep. - Consult with a child welfare caseworker or urologist for recurrent UTIs. - Incorporate daily relaxation time and consider stretching or yoga exercises. - Schedule a follow-up appointment in two weeks to reassess symptoms and treatment efficacy. Medications: New cyclobenzaprine 10 mg PO BEDTIME 30 tabs 0RF
[2024-09-20 09:54] VITALS: BP 120/64; PULSE 83; TEMP 36.4; O2SAT 98; BMI 30.5
== END 2024-09-20 10:43 | disposition home or self-care (01) ==
LOC: HO.HMCH 09:50
PROVIDERS: PCP Internal Medicine; Visit Provider Internal Medicine
DX: M46.1 Sacroiliitis, not elsewhere classified (principal)

== ENCOUNTER → 2024-09-20 09:50 | Outpatient (BNVA) | payer MEDICARE, SELFPAY | PROVIDERS: PCP Internal Medicine; Visit Provider Internal Medicine | DX: M46.1 Sacroiliitis, not elsewhere classified (principal); Z87.440 Personal history of urinary (tract) infections | CPT/HCPCS: 96127; 99212 ==

== ENCOUNTER 2024-10-04 10:17 | Outpatient (AMB) | payer MEDICARE, SELFPAY ==
--- NOTE | 2024-10-04 10:31 | A.OFFPC_ITS ---
Vital Signs 10/04/24 10:33 Height 4 ft 11 in Weight 152 lb 4 oz BMI 30.7 BP 120/62 Blood Pressure Location Lt brachial Position Sitting Pulse 83 Pulse Source Pulse Oximeter Temp 97.3 F Temp Source Temporal Artery Scan Pulse Oximetry (%) 99 Oxygen Delivery Method Room Air Intake Visit Reasons: 2 week f/u Intake Note: Patient is here to follow up on Sacroiliitis. Client Application Support Engineer Required: No Microfilm Machine Operator: Not Required per policy Accompanied by: Self / Same As Patient Allergies Sulfa (Sulfonamide Antibiotics) [SULFA(SULFONAMIDE ANTIBIOTICS)] Allergy (Severe, Verified 10/04/24 10:32) ANAPHYLAXIS Tobacco use date assessed: 10/04/24 Fall risk assessment: No Falls in past year Last assessed Fall Risk: 10/04/24 Dental Screening Dental Screen Date: 09/20/24 [facility] Medical History (Updated 10/04/24 @ 10:57 by Sanjeev Sadler MD) Generalized anxiety disorder Borderline hypercholesterolemia Former cigarette smoker Osteoarthritis Osteopenia Hematuria Hot flashes Encounter to establish care (~04/23/21) Surgical History H/O colonoscopy (~10/05/21) History of hand surgery History of tubal ligation History of tonsillectomy Family History Mother Breast cancer Pre-diabetes Father No problems noted. Maternal Aunt Breast cancer Ovarian cancer Social History Housing: House Are you a primary account executive healthcare to a significant other at home: No Do you presently have visiting nurse or other home services: No Alcohol intake: never Comment: medicated Patient Tobacco Use Status: Former Tobacco user Tobacco use type: Cigarette e-Cigarette/Vaping Use: Never Used Second Hand Smoke Exposure: Yes service: No Current occupational status: retired Cognitive needs: No Hearing needs: No Vision needs: Yes (glasses) Female Reproductive History Menstrual Age of Menarche: 12 Questionnaire Thrive Questionnaire Date Thrive assessed: 09/20/24 I am a: Patient What is your living situation today?: I have a steady place to live Within the past 12 months, did the food you bought not last and you didn't have the money to get more?: Never true Within the past 12 months, did you worry whether your food would run out before you got money to buy more?: Never true Do you have trouble paying for medicines?: No Do you have trouble getting transportation to medical appointments?: No Do you have trouble paying your heating and electricity bill?: No Do you have trouble taking care of your child, family member or friend?: No Do you have trouble with day-to-day activities such as bathing, preparing meals, shopping, managing finances, etc.?: No Are you currently unemployed and looking for a job?: No Are you interested in more education?: No Please select the resources that you would like help with: None Currently or been in a relationship where the following occur: I choose not to answer THRIVE Score: 0 OLGA-7 AMB Questionnaire OLGA-7 Date OLGA - 7 assessed: 09/20/24 Source: Developed by Drs. Boris Otero, Sarina Flowers, Carlitos Zimmerman and colleagues, with an educational nemo from [employer]. Physical exam (Primary Care) Vital Signs: Last Vital Signs Temp 97.3 F 10/04/24 10:33 Pulse 83 10/04/24 10:33 BP 120/62 10/04/24 10:33 Pulse Ox 99 10/04/24 10:33 Oxygen Delivery Method Room Air 10/04/24 10:33 BMI result Body Mass Index 30.7 Tobacco/Smoking Status: Tobacco use Status Tobacco use date assessed 10/04/24 10/04/24 10:36 Patient Tobacco Use Status Former Tobacco user 10/04/24 10:32 Tobacco use type Cigarette 10/04/24 10:32 e-Cigarette/Vaping Use Never Used 10/04/24 10:32 Thrive Assessment: Date of Thrive Assessment Date Thrive assessed 09/20/24 10/04/24 10:32 Currently or been in a relationship where the following occur: I choose not to answer Coding Level of Care Code Est Pt Level 3 (01133) Complex EM visit Add On G2211 Diagnoses Generalized anxiety disorder F41.1 Assessment & Plan Assessment & Plan (1) Generalized anxiety disorder: Code(s): F41.1 - Generalized anxiety disorder Category: Medical Plan: Symtoms well controlled with small amount of cyclobenzaprine. To continue taking one tablet at night. Plan History of Present Illness The patient is a 68-year-old female presenting with insomnia and frequent nocturia. Prior to treatment, she experienced sleep disturbances due to waking to void approximately four times per night. The use of a prescribed muscle relaxant has shown a substantial positive effect on her condition, with her reporting significant amelioration of symptoms and better sleep without disruption during the night. The patient adheres to the prescribed medication regimen without reporting any adverse effects. Social History Review of Systems - Genitourinary: Reports improvement in nocturia - Neurological: Reports improvement in sleep pattern Physical Exam General: Cooperative and healthy appearing Nutritional Appearance: Well nourished Orientation/consciousness: Patient oriented x3 Limitations: No limitations Head: Normal to inspection General: Appearance normal, both eyes and all related structures Neck: Normal visual inspection Chest: Normal palpation of entire chest wall Respiratory: Normal respiratory effort Neurology: Patient oriented x3 Results Plan 1. Insomnia Secondary To Urinary Frequency - Continue nightly use of prescribed muscle relaxant. - Reassure the patient about the [id number] nature of the medication. 2. Frequent Nocturia - Continue medication to manage nocturic episodes successfully. - Monitor for any adverse effects or changes in symptoms. Discussion Notes I discussed with the patient the effectiveness of the current muscle relaxant therapy, which has resulted in improved sleep and reduced nocturia. I reassured her that the medication is safe and not habit-forming. She expressed satisfaction with her current treatment plan. I advised her to continue the medication as prescribed and to keep monitoring her symptoms. We discussed that she does not need to worry about dependency on this medication. A follow-up appointment will be arranged to reassess her condition and medication efficacy. Patient Instructions - Continue taking your muscle relaxant every night as instructed. - Do not worry about developing a dependency on the medication. - Monitor any changes in your sleep patterns or urinary habits. - Contact us if you experience any side effects or if symptoms return. Medications: Refilled cyclobenzaprine 10 mg PO BEDTIME 90 tabs 1RF
[2024-10-04 10:33] VITALS: BP 120/62; PULSE 83; TEMP 36.3; O2SAT 99; BMI 30.7
== END 2024-10-04 11:03 | disposition home or self-care (01) ==
LOC: HO.HMCH 10:17
PROVIDERS: PCP Internal Medicine; Visit Provider Internal Medicine
DX: F41.1 Generalized anxiety disorder (principal)

== ENCOUNTER → 2024-10-04 10:17 | Outpatient (BNVA) | payer MEDICARE, SELFPAY | PROVIDERS: PCP Internal Medicine; Visit Provider Internal Medicine | DX: F41.1 Generalized anxiety disorder (principal); R35.1 Nocturia; G47.00 Insomnia, unspecified; R35.0 Frequency of micturition | CPT/HCPCS: 99212 ==

== ENCOUNTER 2024-12-03 09:21 | Outpatient (REF) | payer MEDICARE, SELFPAY ==
--- OUTSIDE RECORDS SUMMARY | 2024-12-03 09:51 | XMS_ITS | Encounter Summary ---
Author Organization [facility] Address [address] [place] [id number] Phone Care Team Providers Care Wheel Inspector Name Role Phone Jf Talbot MINI SHIFTER Primary Care Provider [phone] Pcp, Unknown Primary Care Provider Unavailabl e Encounter Details Date Type Department Care Team (Late st Contact Info) Description 03/07/2017 Ancillary Orders [facility] [address] [place] [address] Ivanna Vázquez MD [address] [place] [address] Visit for screening mammogram Social History Tobacco Use Types Packs/Day Years Used Date Smoking Tobacco: Never Assessed Comments Unknown Sex and Gender Information Value Date Recorded Sex Assigned at Not on file Legal Sex Female 9:57 PM EDT Gender Identity Not on file Sexual Orientation Not on file documented as of this encounter Plan of Treatment Not on file documented as of this encounter Results * BI MAMMOGRAM SCREENING WITH TOMOSYNTHESIS WITH CAD (BILATERAL) (04/13/2017 9:37 AM EST) Anatomical Region Laterality Modality Breast Left, Breast Right, Breast Bilateral Bila teral Mammography 04/13/2017 2:52 PM EST Impressions 04/13/2017 2:55 PM EST No mammographic change indicative of malignancy. Routine screening is recommended. BI-RADS CATEGORY: 1 - Negative. DENSITY: There are scattered fibroglandular densities. POS - CDHMAMA Narrative 04/13/2017 2:55 PM EST FINDINGS: Bilateral full-field digital screening mammography is obtained and read in conjunction with computer-aided detection. 3-D tomosynthesis as well as 2-D C view imaging is also performed. Comparison includes the most recent exam from 04/12/2016 and as far back as 02/01/2011. Breasts are composed of scattered fibroglandular tissue. No new dominant mass, suspicious microcalcifications, architectural distortion, focal skin thickening, or new asymmetry is detected. Procedure Note Farooq Cavanaugh MD - 04/13/2017 FINDINGS: Bilateral full-field digital screening mammography is obtained and read inconjunction with computer-aided detection. 3-D tomosynthesis as well as2-D C view imaging is also performed. Comparison includes the most recentexam from 04/12/2016 and as far back as 02/01/2011. Breasts are composed of scattered fibroglandular tissue. No new dominantmass, suspicious microcalcifications, architectural distortion, focal skinthickening, or new asymmetry is detected. IMPRESSION: No mammographic change indicative of malignancy. Routine screening isrecommended. BI-RADS CATEGORY: 1 - Negative. DENSITY: There are scattered fibroglandular densities. POS - CDHMAMA Ivanna Vázquez MD IM MG EXAMS Fin al Result documented in this encounter Visit Diagnoses Diagnosis Visit for screening mammogram Visit for screening mammogram documented in this encounter Additional Health Concerns Infection Onset Date Last Indicated Resolved Time MDR-GN 06/14/2017 06/14/2017 12/10/2022 1:34 AM EDT documented as of this encounter Care Teams Wheel Inspector Relationship Specialty Start Date End Date Jf Talbot CNP [address] [place] [address], [address] [place] [address] PCP - General 03/07/17 09/21/21 Pcp, Unknown PCP - General 09/22/21 documented as of this encounter Additional Source Comments The information contained in this document represents components of the legal health record. It is not the complete legal health record.[facility]
[2024-12-03 11:25] LABS: Appearance Urine Cloudy; Glucose Urine UA Negative (Negative); PH 6.5 (5.0-9.0); Specific Gravity - Urine 1.020 (1.005-1.025); UMIC TRIGGER UA YES
== END 2024-12-03 09:22 | disposition home or self-care (01) ==
LOC: HO.LNP 09:21
PROVIDERS: Visit Provider Internal Medicine
DX: Z13.220 Encounter for screening for lipoid disorders (principal)
CPT/HCPCS: 81001

== ENCOUNTER 2025-01-09 13:39 | Outpatient (AMB) | payer MEDICARE, SELFPAY ==
--- NOTE | 2025-01-09 13:43 | A.OFFPC_ITS ---
Vital Signs 01/09/25 13:46 Height 4 ft 11 in Weight 154 lb 4 oz BMI 31.2 BP 140/66 H Blood Pressure Location Lt brachial Position Sitting Pulse 105 H Pulse Source Pulse Oximeter Temp 96.9 F Temp Source Temporal Artery Scan Pulse Oximetry (%) 100 Oxygen Delivery Method Room Air Intake Visit Reasons: 3mth f/u Intake Note: Patient is here to follow up on Hypercholesterolemia, Osteoporosis, Sacroiliitis. Slitter Processed Film Required: No Catheterization Laboratory Technician: Not Required per policy Accompanied by: Self / Same As Patient Allergies Sulfa (Sulfonamide Antibiotics) (SULFA(SULFONAMIDE ANTIBIOTICS)) Allergy (Severe, Verified 01/09/25 13:46) ANAPHYLAXIS Tobacco use date assessed: 01/09/25 Fall risk assessment: No Falls in past year Last assessed Fall Risk: 01/09/25 Dental Screening Dental Screen Date: 09/20/24 [facility] Medical History (Updated 10/04/24 @ 10:57 by Sanjeev Sadler MD) Generalized anxiety disorder Borderline hypercholesterolemia Former cigarette smoker Osteoarthritis Osteopenia Hematuria Hot flashes Encounter to establish care (~04/23/21) Surgical History H/O colonoscopy (~10/05/21) History of hand surgery History of tubal ligation History of tonsillectomy Family History Mother Breast cancer Pre-diabetes Father No problems noted. Maternal Aunt Breast cancer Ovarian cancer Social History Housing: House Are you a primary career technical supervisor to a significant other at home: No Do you presently have visiting nurse or other home services: No Alcohol intake: never Comment: medicated Patient Tobacco Use Status: Former Tobacco user Tobacco use type: Cigarette e-Cigarette/Vaping Use: Never Used Second Hand Smoke Exposure: Yes service: No Current occupational status: retired Cognitive needs: No Hearing needs: No Vision needs: Yes (glasses) Female Reproductive History Menstrual Age of Menarche: 12 Questionnaire Thrive Questionnaire Date Thrive assessed: 09/20/24 I am a: Patient What is your living situation today?: I have a steady place to live Within the past 12 months, did the food you bought not last and you didn't have the money to get more?: Never true Within the past 12 months, did you worry whether your food would run out before you got money to buy more?: Never true Do you have trouble paying for medicines?: No Do you have trouble getting transportation to medical appointments?: No Do you have trouble paying your heating and electricity bill?: No Do you have trouble taking care of your child, family member or friend?: No Do you have trouble with day-to-day activities such as bathing, preparing meals, shopping, managing finances, etc.?: No Are you currently unemployed and looking for a job?: No Are you interested in more education?: No Please select the resources that you would like help with: None Currently or been in a relationship where the following occur: I choose not to answer THRIVE Score: 0 OLGA-7 AMB Questionnaire LOGA-7 Date OLGA - 7 assessed: 09/20/24 Source: Developed by Drs. Boris Otero, Sarina Flowers, Carlitso Zimmerman and colleagues, with an educational nemo from [employer]. Physical exam (Primary Care) Vital Signs: Last Vital Signs Temp 96.9 F 01/09/25 13:46 Pulse 105 H 01/09/25 13:46 BP 140/66 H 01/09/25 13:46 Pulse Ox 100 01/09/25 13:46 Oxygen Delivery Method Room Air 01/09/25 13:46 BMI result Body Mass Index 31.2 Tobacco/Smoking Status: Tobacco use Status Tobacco use date assessed 01/09/25 01/09/25 13:48 Patient Tobacco Use Status Former Tobacco user 01/09/25 13:48 Tobacco use type Cigarette 01/09/25 13:48 e-Cigarette/Vaping Use Never Used 01/09/25 13:48 Thrive Assessment: Date of Thrive Assessment Date Thrive assessed 09/20/24 01/09/25 13:48 Currently or been in a relationship where the following occur: I choose not to answer Coding Level of Care Code Est Pt Level 4 (41612) Complex EM visit Add On G2211 Diagnoses Urinary tract infection N39.0 Assessment & Plan Assessment & Plan (1) Urinary tract infection: Code(s): N39.0 - Urinary tract infection, site not specified Category: Medical Plan: Patient has recurrent UTI. Reluctant to see urologist. Regular Food [employer] Team Member appt in April. Plan History of Present Illness - The patient is a 69-year-old female presenting with recurrent bladder infections. - She has experienced two bladder infections in the last month, treated with antibiotics, and reports severe back pain and increased urinary frequency during these episodes. - The patient has a history of fecal incontinence, occasionally requiring panty liners, and experiences diarrhea when stressed, potentially contributing to bladder infections. - She has high anxiety, impacting her interactions with healthcare providers, and is due for a gynecological exam and mammogram in April. Social History Review of Systems - Genitourinary: Reports increased urinary frequency and severe back pain during bladder infections. - Gastrointestinal: Reports diarrhea when stressed, occasional fecal incontinence. - Psychological: Reports high anxiety. Physical Exam General: Cooperative and healthy appearing Nutritional Appearance: Well nourished Orientation/consciousness: Patient oriented x3 Limitations: No limitations Head: Normal to inspection General: Appearance normal, both eyes and all related structures Neck: Normal visual inspection Chest: Normal palpation of entire chest wall Respiratory: N ormal respiratory effort Neurology: Patient oriented x3, vision and driving well, no problems. Results Plan 1. Recurrent Bladder Infections - Referral to urology for evaluation and potential prophylactic antibiotic therapy was considered. - Patient advised to monitor symptoms and report any recurrence for timely intervention. 2. Fecal Incontinence - Management includes the use of panty liners and monitoring of symptoms. 3. Anxiety - Recognized the impact of anxiety on healthcare interactions; further management options may be discussed if needed. Discussion Notes I discussed with the patient the possibility of referring her to a urologist for further evaluation of her recurrent bladder infections and the potential use of prophylactic antibiotics. We also talked about monitoring her symptoms and reporting any recurrence. I acknowledged her concerns about anxiety affecting her interactions with healthcare providers and suggested that we could explore management options if necessary. Patient Instructions - Monitor for any recurrence of bladder infection symptoms and report them promptly. - Use panty liners as needed for fecal incontinence and monitor symptoms. - Attend scheduled gynecological exam and mammogram in April.
[2025-01-09 13:46] VITALS: BP 140/66; PULSE 105; TEMP 36.1; O2SAT 100; BMI 31.2
--- OUTSIDE RECORDS SUMMARY | 2025-01-09 14:26 | XMS_ITS | Encounter Summary ---
Author Organization [facility] Address [address] [facility] [address] [place] [id number] Phone Care Team Providers Care Car Tracer Name Role Phone Jf Talbot CNP Primary Care Provider [phone] Pcp, Unknown Primary Care Provider Unavailabl e Encounter Details Date Type Department Care Team (Late st Contact Info) Description 06/14/2017 Documentation [facility] Infectious Disease Virtual Department [address] [place] [address] Pcp, Not Required [address] [place] [id number] Social History Tobacco Use Types Packs/Day Years Used Date Smoking Tobacco: Former Smokeless Tobacco: Never Alcohol Use Standard Drinks/Week Comments No 0 (1 standard drink = 0.6 oz pur e alcohol) Comments No Sex and Gender Information Value Date Recorded Sex Assigned at Not on file Legal Sex Female 9:57 PM EDT Gender Identity Not on file Sexual Orientation Not on file Occupation Industry Job Start Date Job End Date Working Not on file Not on file Not on file documented as of this encounter Plan of Treatment Not on file documented as of this encounter Visit Diagnoses Not on filedocumented in this encounter Additional Health Concerns Infection Onset Date Last Indicated Resolved Time MDR-GN 06/14/2017 06/14/2017 12/10/2022 1:34 AM EDT documented as of this encounter Care Teams Car Tracer Relationship Specialty Start Date End Date Jf Talbot CNP [address] [facility] [place] [address] PCP - General 03/07/17 09/21/21 Pcp, Unknown PCP - General 09/22/21 documented as of this encounter Additional Source Comments The information contained in this document represents components of the legal health record. It is not the complete legal health record.[facility]
--- OUTSIDE RECORDS SUMMARY | 2025-01-09 14:26 | XMS_ITS | Encounter Summary ---
Author Organization [facility] Address [address] [place] [address] Phone Care Team Providers Care Release Engineer Name Role Phone Jf Talbot CNP Primary Care Provider [phone] Pcp, Unknown Primary Care Provider Unavailabl e Encounter Details Date Type Department Care Team (Late st Contact Info) Description 02/13/2018 Ancillary Orders [facility] [address] [place] [address] Jf Talbot CNP [address] [facility] [place] [address] [email or web address] Breast screening Social History Tobacco Use Types Packs/Day Years [...] MAMMOGRAM SCREENING WITH TOMOSYNTHESIS WITH CAD (BILATERAL) (03/20/2018 8:06 AM EST) Anatomical Region Laterality Modality Breast Left, Breast Right, Breast Bilateral Bila teral Mammography 03/20/2018 8:29 AM EST Impressions 03/20/2018 8:31 AM EST No mammographic change indicative of malignancy. Annual screening is recommended in light of family history. BI-RADS CATEGORY: 1 - Negative. DENSITY: There are scattered fibroglandular densities. POS -CDHMAM2 Narrative 03/20/2018 8:31 AM EST Bilateral full-field digital screening mammography is obtained and read in conjunction with computer-aided detection. Tomosynthesis as well as 2-D C view imaging of both breasts in two planes also obtained. Comparison made to multiple prior, most recent April 13, 2017, and most remote February 21, 2012. No dominant mass, architectural distortion, worrisome asymmetry, or suspicious calcification is identified. No skin or nipple finding of concern is appreciated. Procedure Note Joanna Hedrick MD - 03/20/2018 Bilateral full-field digital screening mammography is obtained and read inconjunction with computer-aided detection. Tomosynthesis as well as 2-D Cview imaging of both breasts in two planes also obtained. Comparison madeto multiple prior, most recent April 13, 2017, and most remote 2011. No dominant mass, architectural distortion, worrisome asymmetry, orsuspicious calcification is identified. No skin or nipple finding ofconcern is appreciated. IMPRESSION: No mammographic change indicative of malignancy. Annual screening isrecommended in light of family history. BI-RADS CATEGORY: 1 - Negative. DENSITY: There are scattered fibroglandular densities. POS -CDHMAM2 Jf Talbot CNP IMG MG EXAMS Final Res ult documented in this encounter Visit Diagnoses Diagnosis Breast screening Breast screening, unspecified Breast screening Breast screening, unspecified documented in this encounter Additional Health Concerns Infection Onset Date Last Indicated Resolved Time MDR-GN 06/14/2017 06/14/2017 12/10/2022 1:34 AM EDT documented as of this encounter Care Teams Release Engineer Relationship Specialty Start Date End Date Jf Talbot CNP [address] [place] [address], [address] [place] [address] PCP - General 03/07/17 09/21/21 Pcp, Unknown PCP - General 09/22/21 documented as of this encounter Additional Source Comments The information contained in this document represents components of the legal health record. It is not the complete legal health record.[facility]
--- OUTSIDE RECORDS SUMMARY | 2025-01-09 14:26 | XMS_ITS | Encounter Summary ---
Author Organization [facility] Address [address] [place] [address] Phone Care Team Providers Care Experimental Box Tester Name Role Phone Jf Talbot COST REPORT CLERK Primary Care Provider [phone] Pcp, Unknown Primary Care Provider Unavailabl e Encounter Details Date Type Department Care Team (Late st Contact Info) Description 03/07/2017 Ancillary Orders [facility] [address] [place] [address] Ivanna Vázquez MD [address] [place] [address] Visit for screening mammogram Social History Tobacco [...] scattered fibroglandular densities. POS - CDHMAMA Ivanna Váqzuez MD IM MG EXAMS Fin al Result documented in this encounter Visit Diagnoses Diagnosis Visit for screening mammogram Visit for screening mammogram documented in this encounter Additional Health Concerns Infection Onset Date Last Indicated Resolved Time MDR-GN 06/14/2017 06/14/2017 12/10/2022 1:34 AM EDT documented as of this encounter Care Teams Experimental Box Tester Relationship Specialty Start Date End Date Jf Talbot CNP [address] [place] [address], [address] [place] [address] PCP - General 03/07/17 09/21/21 Pcp, Unknown PCP - General 09/22/21 documented as of this encounter Additional Source Comments The information contained in this document represents components of the legal health record. It is not the complete legal health record.[facility]
--- OUTSIDE RECORDS SUMMARY | 2025-01-09 14:27 | XMS_ITS | Clinical Summary ---
Author Organization [facility] Address [address] [address] Phone Care Team Providers Care Director Chemistry Name Role Phone Pcp, Unknown Primary Care Provider Unavailabl e Allergies Active Allergy Reactions Criticality Noted Date Comments Sulfa (Sulfonamide Antibiotics) Rash Low 04/17 Medications naproxen sodium (ALEVE) 220 mg Cap 1 tablet as needed Active estradiol (YUVAFEM) 10 mcg TabIndications: Vaginal atrophy Insert 1 tab vaginally twice weekly 24 tablet 3 8 Active Additional Information Patient not taking.Reported on 05/20/2018 CALCIUM ORAL Take 1 tablet by mouth daily. 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 Immunizations Immunization Administration Dates Next Due COVID-19 (Pre-03/07) Moderna Vaccine, mRNA, PF 0 08/06/2020,07/09/2020 Td (adult) 5 Lf Tetanus Toxoid, PF, Adsorbed Tdap 11/19/2013 Zoster live 11/04/2014 Family History Medical History Relation Comments Breast cancer Cousin Parkinson's disease Father Dx late 70s Prostate cancer Father Dx age 60s Breast cancer Maternal Aunt 1 negative BRCA Breast cancer Maternal Aunt 2 negative BRCA Breast cancer Maternal Aunt 3 Uterine cancer Maternal Aunt 3 unclear what typ e of cancer, could have been ovarian Breast cancer Mother negative BRCA, p alen thinks may have been an environmental exosure. Glucose intolerance Mother Hypothyroidism Sister 1 No Known Problems Sister 2 Osteopenia Sister 3 Colon cancer Neg Hx Relation Status Comments Cousin Father Alive Maternal Aunt 1 Maternal Aunt 2 Maternal Aunt 3 Mother Alive Sister 1 Alive Sister 2 Alive Sister 3 Alive Social History Tobacco Use Types Packs/Day Years Used Date Smoking Tobacco: Former Smokeless Tobacco: Never Alcohol Use Standard Drinks/Week Comments No 0 (1 standard drink = 0.6 oz pur e alcohol) Education Answer Date Recorded Are you interested in more education? Not on aron e 09/10/2022 Are you concerned about learning? Not on file 09/10/2022 No 09/10/2022 No 09/10/2022 Digital Access Answer Date Recorded No 10/11/2022 No 10/11/2022 Reliable internet access at home? Not on file 10/11/2022 Device with a working camera? Not on file Comments No Sex and Gender Information Value Date Recorded Sex Assigned at Not on file Legal Sex Female 9:57 PM EDT Gender Identity Not on file Sexual Orientation Not on file Occupation Industry Job Start Date Job End Date Working Not on file Not on file Not on file Last Filed Vital Signs Vital Sign Reading Time Taken Comments Blood Pressure 142/70 05/20/2018 9:15 AM EST Pulse 80 05/20/2018 9:15 AM EST Temperature 36.8 C (98.2 F) 05/20/2018 9:15 AM EST Respiratory Rate - - Oxygen Saturation 95% 05/20/2018 9:15 AM EST Inhaled Oxygen Concentration - - Weight 66.7 kg (147 lb) 05/20/2018 9:15 AM EST Height 148.6 cm (4' 10.5 ) 05/20/2018 9:15 AM ES T Body Mass Index 30.2 05/20/2018 9:15 AM EST Plan of Treatment Health Maintenance Due Date Last Done Comments DEPRESSION SCREENING 1965 SMOKING Hx and SMOKELESS TOBACCO SCREENING 1966 HEPATITIS C SCREENING 10/30/1971 COLOGUARD 1998 FIT TEST 1998 FOBT 1998 SIGMOIDOSCOPY 1998 VIRTUAL COLONOSCOPY 1998 PNEUMOCOCCAL VACCINES (50+ years) (1 of 1 - PCV) 10/30/2003 ZOSTER VACCINES (2 of 3) 12/30/2014 11/04/2014 COLONOSCOPY 10/09/2018 10/09/2008 COLORECTAL CANCER SCREENING 10/09/2018 OSTEOPOROSIS SCREENING INITI AL (ONE-TIME) 2018 11/29/2007 LIPID PANEL 2019 10/28/2014, 10/28/2014, 10/28/2014 MAMMOGRAM 03/20/2020 03/20/2018, 04/13/2017 Adult Td,Tdap Booster 11/20/2023 11/19/2013 , 11/10/2011 COVID-19 VACCINE (3 - 2023-2 5 season) 2024 08/06/2020, 07/09/2020 RSV VACCINE (1 - 1-dose 75+ series) 2028 HEPATITIS A VACCINES Aged Out No long er eligible based on patient's age to complete this topic HIB VACCINES Aged Out No longer eligi ble based on patient's age to complete this topic MENINGOCOCCAL VACCINES (ACWY) Aged Out No longer eligible based on patient's age to complete this topic MENINGOCOCCAL VACCINES (B) Aged Out N o longer eligible based on patient's age to complete this topic Medical Devices Not on file Procedures Procedure Name Priority Date/Time Associated Diagnosis Comments BI MAMMOGRAM SCREENING WITH TOMOSYNTHESIS WITH CAD (BILATERAL) Routine 03/20/2018 8:06 AM EST Breast screening OUTSIDE HDL Routine 10/28/2014 HM COLONOSCOPY FOR RESULT ENTRY ONLY Routine 10/09/2008 OUTSIDE BONE DENSITY SCREENING Routine 11/29/2007 from Last 3 Months or Most Recently Relevant to Health Maintenance Results * BI MAMMOGRAM SCREENING WITH TOMOSYNTHESIS [...] There are scattered fibroglandular densities. POS -CDHMAM2 Result [facility] Jf Talbot SUPERVISOR DIALS IMG MG EXAMS Final Res ult * Outside HDL (10/28/2014) [facility] HDL - External 41 40 - 80 mg/dL Result [facility] Provider LAB BLOOD ORDERABLES Elizabeth l Result * COLONOSCOPY FOR RESULT ENTRY ONLY (10/09/2008) [facility] Colonoscopy negative- repeat 7-10 yrs. Historical [facility] Final Result * OUTSIDE BONE DENSITY SCREENING (11/29/2007) [facility] BONE DENSITY SCREENING - EXTERNAL ... Historical Provider HEALTH MAINTENANCE Final Result from Last 3 Months or Most Recently Relevant to Health Maintenance [place] BL[place] BL[place] [facility] MEDICARE HMO BLUE REPLACEMENT [facility] MEDICARE HMO BLUE REPLACEMENT [facility] MEDICARE HMO BLUE REPLACEMENT [facility] MEDICARE HMO BLUE REPLACEMENT [facility] MEDICARE HMO BLUE REPLACEMENT Care Teams Director Chemistry Relationship Specialty Start Date End Date Pcp, Unknown PCP - General 09/22/21 Additional Source Comments The information contained in this document represents components of the legal health record. It is not the complete legal health record.[facility]
== END 2025-01-09 14:09 | disposition home or self-care (01) ==
LOC: HO.HMCH 13:40
PROVIDERS: PCP Internal Medicine; Visit Provider Internal Medicine
DX: N39.0 Urinary tract infection, site not specified (principal)

== ENCOUNTER → 2025-01-09 13:39 | Outpatient (BNVA) | payer MEDICARE, SELFPAY | PROVIDERS: PCP Internal Medicine; Visit Provider Internal Medicine | DX: M81.0 Age-related osteoporosis without current pathological fracture (principal); M53.3 Sacrococcygeal disorders, not elsewhere classified; E78.00 Pure hypercholesterolemia, unspecified; N39.0 Urinary tract infection, site not specified; R15.9 Full incontinence of feces; F41.9 Anxiety disorder, unspecified | CPT/HCPCS: 99212 ==

== ENCOUNTER 2025-04-22 09:00 | Outpatient (REF) | payer MEDICARE, SELFPAY ==
[2025-04-22 11:26] LABS: Appearance Urine Clear; Glucose Urine UA Negative (Negative); PH 5.0 (5.0-9.0); Specific Gravity - Urine 1.020 (1.005-1.025); UMIC TRIGGER UA YES
== END 2025-04-22 09:01 | disposition home or self-care (01) ==
LOC: HO.WFDLDS 09:00
PROVIDERS: Visit Provider Internal Medicine
DX: Z13.220 Encounter for screening for lipoid disorders (principal)
CPT/HCPCS: 81001

== ENCOUNTER 2025-04-30 08:41 | Outpatient (AMB) | payer MEDICARE, SELFPAY ==
--- NOTE | 2025-04-30 08:55 | MHC.OFFVIS ---
Vital Signs 04/30/25 08:58 Height 4 ft 11 in Weight 149 lb BMI 30.1 Intake Visit Reasons: annual Dredge Deckhand Required: No Information Interpreted: non-clinical & clinical Transportation Engineering Technician: Transportation Engineering Technician Present (Vonnie Geronimo OSMANI) Accompanied by: Self / Same As Patient Allergies Sulfa (Sulfonamide Antibiotics) (SULFA(SULFONAMIDE ANTIBIOTICS)) Allergy (Severe, Verified 04/30/25 08:59) ANAPHYLAXIS Post menopausal: Yes HPI Comments Details: Presenting for annual exam. No complaints. Last Pap/HPV according to the patient is unknown but according to the patient she has been adequately screened below the age of 65 and all Co testing were negative with no history of abnormal Pap smears Last Mammogram was BI-RADS 1 in 05/08 Last Colonoscopy was in 10/04, the recommendation was to repeat in 9-10 years Last DEXA scan was in 05/07 [facility] Medical History Generalized anxiety disorder Borderline hypercholesterolemia Former cigarette smoker Osteoarthritis Osteopenia Hematuria Hot flashes Encounter to establish care (~04/23/21) Surgical History H/O colonoscopy (~10/05/21) History of hand surgery History of tubal ligation History of tonsillectomy Family History Mother Breast cancer Pre-diabetes Father No problems noted. Maternal Aunt Breast cancer Ovarian cancer Social History Housing: House Are you a primary manager critical care to a significant other at home: No Do you presently have visiting nurse or other home services: No Alcohol intake: never Comment: medicated Patient Tobacco Use Status: Former Tobacco user Tobacco use type: Cigarette e-Cigarette/Vaping Use: Never Used Second Hand Smoke Exposure: Yes service: No Current occupational status: retired Cognitive needs: No Hearing needs: No Vision needs: Yes (glasses) Female Reproductive History Menstrual Age of Menarche: 12 Date of Mammogram: 05/01/24 Date of last Bone Density Screenin04/28/23 Review of Systems Const All systems reviewed & are unremarkable except as noted in HPI and below Card Reports as per HPI Resp Reports as per HPI GI Reports as per HPI and Reports no additional complaints Reports as per HPI Physical Exam Vital Signs: BMI result Body Mass Index 30.1 Const General: cooperative, healthy appearing and comfortable Chest Chest palpation & inspection: normal inspection of the chest and normal palpation of entire chest wall Breast/axilla inspection: normal inspection of the breasts and normal inspection of the axillae Breast/axilla palpation: normal palpation of the breasts, normal palpation of the axillae and no axillary lymphadenopathy Resp Effort & Inspection: normal respiratory effort Auscultation: clear to auscultation bilaterally Percussion: percussion normal Cardio Palpation: normal PMI Rate: regular rate Rhythm: regular rhythm Heart sounds: no murmurs and no rubs Peripheral pulses: Peripheral pulses 2+ throughout GI Inspection: Yes normal to inspection Palpation (GI): Soft to palpation, nontender, no guarding, not rigid and No hepatosplenomegaly present Percussion: Yes normal to percussion Auscultation: normal bowel sounds Rectal Exam - Female: deferred General: Yes bladder normal to palpation External Female Exam: No lesion Speculum Exam - Vagina: normal appearance of the vagina, normal palpation, normal vaginal discharge and not erythematous Speculum Exam - Cervix: normal appearance of the cervix and normal palpation Bimanual exam- vagina & uterus: normal bimanual exam, normal palpation, uterine size normal, bladder normal to palpation, consistency normal and normal palpation Bimanual Exam- Adnexa, other: normal adnexae, no masses and no tenderness Assessment & Plan Assessment & Plan (1) Well woman exam: Code(s): Z01.419 - Encounter for gynecological examination (general) (routine) without abnormal findings Category: Medical Plan: Co testing not indicated since the patient 's age is above 65 with no history of abnormal Pap smears last 25 years, adequately screen for the last 10 years with no history of immunosuppression. Counseled the patient about the recommended dietary allowance of 1200 mg of Calcium & 800 IU of vitamin D. Mammogram scheduled in few weeks. Will order DEXA scan . The patient was instructed to perform monthly self-breast exams and to schedule a 2 week DEXA scan follow-up appointment and an annual exam in a year; All questions answered and the patient verbalized understanding. Orders: Orders XR DEXA axial skeleton Today Z78.0 - Asymptomatic menopausal state Coding Level of Care Code Est Pt Prev Care >65y(33083) Diagnoses Well woman exam Z01.419
[2025-04-30 08:58] VITALS: BMI 30.1
--- OUTSIDE RECORDS SUMMARY | 2025-04-30 09:22 | XMS_ITS | Encounter Summary ---
Author Organization [facility] Address [address] [place] [address] Phone Care Team Providers Care Abrasive Grader Helper Name Role Phone Jf Talbot CNP Primary Care Provider [phone] [phone] Pcp, Unknown Primary Care Provider Unavailabl e Encounter Details Date Type Department Care Team (Late st Contact Info) Description 06/14/2017 Documentation [facility] Infectious Disease Virtual Department [address] [place] [address] Pcp, Not Required Social History Tobacco Use Types Packs/Day Years [...] documented as of this encounter Care Teams Abrasive Grader Helper Relationship Specialty Start Date End Date Jf Talbot CNP [address] [facility] [place] [address] PCP - General 03/07/17 09/21/21 Pcp, Unknown PCP - General 09/22/21 documented as of this encounter Additional Source Comments The information contained in this document represents components of the legal health record. It is not the complete legal health record.[facility]
--- OUTSIDE RECORDS SUMMARY | 2025-04-30 09:22 | XMS_ITS | Encounter Summary ---
Author Organization [facility] Address [address] [place] [address] Phone Care Team Providers Care Prenatal Genetic Counselor Name Role Phone Jf Talbot NIC Primary Care Provider [phone] [phone] Pcp, Unknown Primary Care Provider Unavailabl e Encounter Details Date Type Department Care Team (Late st Contact Info) Description 03/07/2017 Ancillary Orders [facility] [address] [place] [address] Ivanna Vázquez MD [address] [place] [address] Visit for screening mammogram Social History Tobacco [...] documented as of this encounter Care Teams Prenatal Genetic Counselor Relationship Specialty Start Date End Date Jf Talbot CNP [address] [place] [address], [address] [place] [address] PCP - General 03/07/17 09/21/21 Pcp, Unknown PCP - General 09/22/21 documented as of this encounter Additional Source Comments The information contained in this document represents components of the legal health record. It is not the complete legal health record.[facility]
--- OUTSIDE RECORDS SUMMARY | 2025-04-30 09:23 | XMS_ITS | Encounter Summary ---
Author Organization [facility] Address [address] [place] [address] Phone Care Team Providers Care Azure Developer Name Role Phone Jf Talbot CNP Primary Care Provider [phone] [phone] Pcp, Unknown Primary Care Provider Unavailabl e Encounter Details Date Type Department Care Team (Late st Contact Info) Description 02/13/2018 Ancillary Orders [facility] [address] [place] [address] Jf Talbot CNP [address] [facility] [place] [address] [email or web address] Breast screening Social History Tobacco [...] documented as of this encounter Care Teams Azure Developer Relationship Specialty Start Date End Date Jf Talbot CNP [address] [place] [address], [address] [place] [address] PCP - General 03/07/17 09/21/21 Pcp, Unknown PCP - General 09/22/21 documented as of this encounter Additional Source Comments The information contained in this document represents components of the legal health record. It is not the complete legal health record.[facility]
--- OUTSIDE RECORDS SUMMARY | 2025-04-30 09:23 | XMS_ITS | Clinical Summary ---
Author Organization [facility] Address [address] [address] Phone Care Team Providers Care Head Charger Name Role Phone Pcp, Unknown Primary Care [...] Adult Td,Tdap Booster 11/20/2023 11/19/2013 , 11/10/2011 INFLUENZA VACCINE (#1) 2024 COVID-19 VACCINE (3 - 2024-2 6 season) 2025 08/06/2020, 07/09/2020 RSV VACCINE (1 - 1-dose [...] are scattered fibroglandular densities. POS -CDHMAM2 Result [facility] Jf Talbot DIGITAL PROOFING AND PLATEMAKER IMG MG EXAMS Final Res ult * Outside HDL (10/28/2014) [facility] HDL - External 41 40 - 80 mg/dL Result [facility] Historical Provider LAB BLOOD ORDERABLES Elizabeth l Result * COLONOSCOPY FOR RESULT ENTRY ONLY (10/09/2008) [facility] Colonoscopy negative- repeat 7-10 yrs. Result [facility] Historical Provider HEALTH MAINTENANCE Final Result * OUTSIDE BONE DENSITY SCREENING (11/29/2007) [facility] BONE DENSITY SCREENING - EXTERNAL ... Result [facility] Historical [facility] [place] HEALTH MAINTENANCE Final Result from Last 3 Months or Most Recently Relevant to Health Maintenance Insurance [facility] MEDICARE O BLUE REPLACEMENT [facility]ICARE O BLUE REPLACEMENT [facility] MEDICARE O BLUE REPLACEMENT [facility] MEDICARE HMO BLUE REPLACEMENT [facility] MEDICARE HMO BLUE REPLACEMENT [facility] MEDICARE O BLUE REPLACEMENT [facility] MEDICARE HMO BLUE REPLACEMENT [facility] MEDICARE HMO BLUE REPLACEMENT [facility] MEDICARE HMO BLUE REPLACEMENT Care Teams Head Charger Relationship Specialty Start Date End Date Pcp, Unknown PCP - General 09/22/21 Additional Source Comments The information contained in this document represents components of the legal health record. It is not the complete legal health record.[facility]
== END 2025-04-30 09:27 | disposition home or self-care (01) ==
PROVIDERS: Visit Provider Obstetrics & Gynecology
DX: Z01.419 Encounter for gynecological examination (general) (routine) without abnormal findings (principal)
CPT/HCPCS: 99397; 99459

== ENCOUNTER → 2025-04-30 08:41 | Outpatient (BNVA) | payer MEDICARE, SELFPAY | PROVIDERS: Visit Provider Obstetrics & Gynecology | DX: Z01.419 Encounter for gynecological examination (general) (routine) without abnormal findings (principal); Z71.3 Dietary counseling and surveillance; Z98.51 Tubal ligation status; Z68.30 Body mass index [BMI] 30.0-30.9, adult | CPT/HCPCS: 99397 ==

== ENCOUNTER 2025-05-02 10:47 | Outpatient (AMB) | payer MEDICARE, SELFPAY ==
--- NOTE | 2025-05-02 11:25 | MHC.PC.OV ---
Vital Signs 05/02/25 11:26 Height 4 ft 11 in Weight 151 lb BMI 30.5 BP 160/84 H Blood Pressure Location Lt brachial Position Sitting Respiration 18 Pulse 99 Pulse Source Pulse Oximeter Temp 98.6 F Temp Source Temporal Artery Scan Pulse Oximetry (%) 98 Oxygen Delivery Method Room Air Intake Visit Reasons: 3m Follow up Rehabilitation Engineer Required: No Accompanied by: Self / Same As Patient Allergies Sulfa (Sulfonamide Antibiotics) (SULFA(SULFONAMIDE ANTIBIOTICS)) Allergy (Severe, Verified 05/02/25 11:46) ANAPHYLAXIS Medication List - Last Reconciled 05/02/25 by Sanjeev Sadler MD atorvastatin 10 mg PO BEDTIME calcium carbonate 500 mg PO DAILY cholecalciferol (vitamin D3) 25 mcg PO DAILY cyclobenzaprine 10 mg PO BEDTIME Tobacco use date assessed: 01/09/25 Fall risk assessment: No Falls in past year Last assessed Fall Risk: 05/02/25 Dental Screening Dental Screen Date: 09/20/24 [facility] Medical History Generalized anxiety disorder Borderline hypercholesterolemia Former cigarette smoker Osteoarthritis Osteopenia Hematuria Hot flashes Encounter to establish care (~04/23/21) Surgical History H/O colonoscopy (~10/05/21) History of hand surgery History of tubal ligation History of tonsillectomy Family History Mother Breast cancer Pre-diabetes Father No problems noted. Maternal Aunt Breast cancer Ovarian cancer Social History Housing: House Are you a primary hiv/aids care nurse to a significant other at home: No Do you presently have visiting nurse or other home services: No Alcohol intake: never Comment: medicated Patient Tobacco Use Status: Former Tobacco user Tobacco use type: Cigarette e-Cigarette/Vaping Use: Never Used Second Hand Smoke Exposure: Yes service: No Current occupational status: retired Cognitive needs: No Hearing needs: No Vision needs: Yes (glasses) Female Reproductive History Menstrual Age of Menarche: 12 Questionnaire Thrive Questionnaire Date Thrive assessed: 09/20/24 I am a: Patient What is your living situation today?: I have a steady place to live Within the past 12 months, did the food you bought not last and you didn't have the money to get more?: Never true Within the past 12 months, did you worry whether your food would run out before you got money to buy more?: Never true Do you have trouble paying for medicines?: No Do you have trouble getting transportation to medical appointments?: No Do you have trouble paying your heating and electricity bill?: No Do you have trouble taking care of your child, family member or friend?: No Do you have trouble with day-to-day activities such as bathing, preparing meals, shopping, managing finances, etc.?: No Are you currently unemployed and looking for a job?: No Are you interested in more education?: No Please select the resources that you would like help with: None Currently or been in a relationship where the following occur: I choose not to answer THRIVE Score: 0 OLGA-7 AMB Questionnaire OLGA-7 Date OLGA - 7 assessed: 09/20/24 Source: Developed by Drs. Boris Otero, Sarina Flowers, Carlitos Zimmerman and colleagues, with an educational nmeo from [employer]. Physical exam (Primary Care) Vital Signs: Last Vital Signs Temp 98.6 F 05/02/25 11:26 Pulse 99 05/02/25 11:26 Resp 18 05/02/25 11:26 BP 160/84 H 05/02/25 11:26 Pulse Ox 98 05/02/25 11:26 Oxygen Delivery Method Room Air 05/02/25 11:26 BMI result Body Mass Index 30.5 Tobacco/Smoking Status: Tobacco use Status Tobacco use date assessed 05/02/25 05/02/25 11:26 Patient Tobacco Use Status Former Tobacco user 05/02/25 11:26 Tobacco use type Cigarette 05/02/25 11:26 e-Cigarette/Vaping Use Never Used 05/02/25 11:26 Thrive Assessment: Date of Thrive Assessment Date Thrive assessed 09/20/24 05/02/25 11:26 Currently or been in a relationship where the following occur: I choose not to answer Coding Level of Care Code Est Pt Level 4 (68352) Add On Problem Visit Only Diagnoses Borderline hypercholesterolemia E78.00 Assessment & Plan Assessment & Plan (1) Borderline hypercholesterolemia: Code(s): E78.00 - Pure hypercholesterolemia, unspecified Category: Medical Plan: History of Present Illness - The patient is a 69-year-old female presenting for a routine follow-up visit. - She reports xerostomia as a side effect of a muscle relaxant she is taking. - Her current medications include a statin at bedtime, calcium, vitamin D, and a muscle relaxant. - The patient has a history of asymptomatic bacteriuria, which her urologist has deemed normal for her, and she currently denies any urinary symptoms. - Her last blood work was performed in July. - She has a history of osteopenia and manages it by lifting arm and leg weights and jogging in place. - For health screenings, she has a mammogram scheduled for next week and has recently seen the dentist twice. - She declines the influenza vaccine, stating that she does not frequent crowded places. Social History - Exercise: The patient reports exercising by lifting arm and leg weights and jogging in place while watching the news. - Social Habits: The patient reports she does not go to many places with large crowds. Review of Systems - Constitutional: Reports feeling well. - HEENT: Reports severe xerostomia. - Genitourinary: Denies urinary symptoms. Physical Exam General: Cooperative and healthy appearing Nutritional Appearance: Well nourished Orientation/consciousness: Patient oriented x3 Limitations: No limitations Head: Normal to inspection General: Appearance normal, both eyes and all related structures Neck: Normal visual inspection Chest: Normal palpation of entire chest wall Respiratory: Normal respiratory effort Neurology: Patient oriented x3 Results - Urinalysis: Recent results are consistent with asymptomatic bacteriuria, which is considered normal for the patient per her urologist. - Labs: Last blood work was in July. Plan - Xerostomia: Reassured that dry mouth is a common side effect of her muscle relaxer. - Advised to chew hard candy for symptomatic relief. - Asymptomatic Bacteriuria: Reassured that no treatment is necessary as she is asymptomatic, which is consistent with specialist advice. - Osteopenia: Encouraged to continue her current exercise regimen of weight lifting and jogging. - Health Maintenance: Orders will be placed for routine fasting blood work. - Patient will proceed with her mammogram scheduled for next week. - Vaccinations: Patient's decision to decline the flu shot was acknowledged. - Medications: The patient has an adequate supply of her muscle relaxer and will receive refills from her pharmacy. Discussion Notes I discussed with the patient that her primary complaint of dry mouth is a very common side effect of muscle relaxants and advised her that she could use hard candies for relief. We reviewed her recent urine test, and I reassured her that since she is asymptomatic, the findings are not a concern and that we will continue to follow her urologist's recommendation to not treat it. I informed her that I would be ordering new fasting blood work. We confirmed her health maintenance is on track with a mammogram scheduled and recent dental visits completed. Her decision to decline the influenza vaccine was noted and accepted. I commended her on her exercise regimen for osteopenia. Patient Instructions - For the dry mouth you are experiencing from your muscle relaxer, you can chew on hard candy to help. - Do not worry about your recent urine test results, as you have no symptoms and your urologist considers this normal for you. - You will need to go to the lab for new blood work. - Please do not eat or drink anything except water before the test. - Continue with your current medications: statin, calcium, vitamin D, and muscle relaxant. - Keep up with your exercise, including lifting weights and jogging in place. - Please attend your scheduled mammogram next week. Orders: Orders Basic Metabolic Panel 05/02/25 E78.00 - Pure hypercholesterolemia, unspecified Thyroid Stimulating Hormone 05/02/25 E78.00 - Pure hypercholesterolemia, unspecified UA and rflx microscopic 05/02/25 E78.00 - Pure hypercholesterolemia, unspecified Complete Blood Count no Diff 05/02/25 E78.00 - Pure hypercholesterolemia, unspecified Liver Panel 05/02/25 E78.00 - Pure hypercholesterolemia, unspecified Lipid Panel 05/02/25 E78.00 - Pure hypercholesterolemia, unspecified
--- NOTE | 2025-05-02 11:25 | MHC.PC.OV ---
Vital Signs 05/02/25 11:26 Height 4 ft 11 in Weight 151 lb BMI 30.5 BP 160/84 H Blood Pressure Location Lt brachial Position Sitting Respiration 18 Pulse 99 Pulse Source Pulse Oximeter Temp 98.6 F Temp Source Temporal Artery Scan Pulse Oximetry (%) 98 Oxygen Delivery Method Room Air Intake Visit Reasons: 3m Follow up Intake Note: Patient is here to follow up on Hypercholesterolemia. Auditor Internal Required: No And Taxi Instructor Bus Trolley: Not Required per policy Accompanied by: Self / Same As Patient Allergies Sulfa (Sulfonamide Antibiotics) (SULFA(SULFONAMIDE ANTIBIOTICS)) Allergy (Severe, Verified 05/02/25 11:46) ANAPHYLAXIS Medication List - Last Reconciled 05/02/25 by Sanjeev Sadler MD atorvastatin 10 mg PO BEDTIME calcium carbonate 500 mg PO DAILY cholecalciferol (vitamin D3) 25 mcg PO DAILY cyclobenzaprine 10 mg PO BEDTIME Tobacco use date assessed: 05/02/25 Fall risk assessment: No Falls in past year Last assessed Fall Risk: 05/02/25 Dental Screening Dental Screen Date: 09/20/24 [facility] Medical History Generalized anxiety disorder Borderline hypercholesterolemia Former cigarette smoker Osteoarthritis Osteopenia Hematuria Hot flashes Encounter to establish care (~04/23/21) Surgical History H/O colonoscopy (~10/05/21) History of hand surgery History of tubal ligation History of tonsillectomy Family History Mother Breast cancer Pre-diabetes Father No problems noted. Maternal Aunt Breast cancer Ovarian cancer Social History Housing: House Are you a primary director of patient care to a significant other at home: No Do you presently have visiting nurse or other home services: No Alcohol intake: never Comment: medicated Patient Tobacco Use Status: Former Tobacco user Tobacco use type: Cigarette e-Cigarette/Vaping Use: Never Used Second Hand Smoke Exposure: Yes service: No Current occupational status: retired Cognitive needs: No Hearing needs: No Vision needs: Yes (glasses) Female Reproductive History Menstrual Age of Menarche: 12 Questionnaire Thrive Questionnaire Date Thrive assessed: 09/20/24 I am a: Patient What is your living situation today?: I have a steady place to live Within the past 12 months, did the food you bought not last and you didn't have the money to get more?: Never true Within the past 12 months, did you worry whether your food would run out before you got money to buy more?: Never true Do you have trouble paying for medicines?: No Do you have trouble getting transportation to medical appointments?: No Do you have trouble paying your heating and electricity bill?: No Do you have trouble taking care of your child, family member or friend?: No Do you have trouble with day-to-day activities such as bathing, preparing meals, shopping, managing finances, etc.?: No Are you currently unemployed and looking for a job?: No Are you interested in more education?: No Please select the resources that you would like help with: None Currently or been in a relationship where the following occur: I choose not to answer THRIVE Score: 0 OLGA-7 AMB Questionnaire OLGA-7 Date OLGA - 7 assessed: 09/20/24 Source: Developed by Drs. Boris tOero, Sarina Flowers, Carlitos Zimmerman and colleagues, with an educational nemo from [employer]. Physical exam (Primary Care) Vital Signs: Last Vital Signs Temp 98.6 F 05/02/25 11:26 Pulse 99 05/02/25 11:26 Resp 18 05/02/25 11:26 BP 160/84 H 05/02/25 11:26 Pulse Ox 98 05/02/25 11:26 Oxygen Delivery Method Room Air 05/02/25 11:26 BMI result Body Mass Index 30.5 Tobacco/Smoking Status: Tobacco use Status Tobacco use date assessed 05/02/25 05/02/25 11:26 Patient Tobacco Use Status Former Tobacco user 05/02/25 11:26 Tobacco use type Cigarette 05/02/25 11:26 e-Cigarette/Vaping Use Never Used 05/02/25 11:26 Thrive Assessment: Date of Thrive Assessment Date Thrive assessed 09/20/24 05/02/25 11:26 Currently or been in a relationship where the following occur: I choose not to answer Coding Level of Care Code Est Pt Level 4 (87969) Add On Problem Visit Only Diagnoses Borderline hypercholesterolemia E78.00 Assessment & Plan Assessment & Plan (1) Borderline hypercholesterolemia: Code(s): E78.00 - Pure hypercholesterolemia, unspecified Category: Medical Plan History of Present Illness - The patient is a 69-year-old female presenting for a routine follow-up visit. - She reports xerostomia as a side effect of a muscle relaxant she is taking. - Her current medications include a statin at bedtime, calcium, vitamin D, and a muscle relaxant. - The patient has a history of asymptomatic bacteriuria, which her urologist has deemed normal for her, and she currently denies any urinary symptoms. - Her last blood work was performed in July. - She has a history of osteopenia and manages it by lifting arm and leg weights and jogging in place. - For health screenings, she has a mammogram scheduled for next week and has recently seen the dentist twice. - She declines the influenza vaccine, stating that she does not frequent crowded places. Social History - Exercise: The patient reports exercising by lifting arm and leg weights and jogging in place while watching the news. - Social Habits: The patient reports she does not go to many places with large crowds. Review of Systems - Constitutional: Reports feeling well. - HEENT: Reports severe xerostomia. - Genitourinary: Denies urinary symptoms. Physical Exam General: Cooperative and healthy appearing Nutritional Appearance: Well nourished Orientation/consciousness: Patient oriented x3 Limitations: No limitations Head: Normal to inspection General: Appearance normal, both eyes and all related structures Neck: Normal visual inspection Chest: Normal palpation of entire chest wall Respiratory: Normal respiratory effort Neurology: Patient oriented x3 Results - Urinalysis: Recent results are consistent with asymptomatic bacteriuria, which is considered normal for the patient per her urologist. - Labs: Last blood work was in July. Plan - Xerostomia: Reassured that dry mouth is a common side effect of her muscle relaxer. - Advised to chew hard candy for symptomatic relief. - Asymptomatic Bacteriuria: Reassured that no treatment is necessary as she is asymptomatic, which is consistent with specialist advice. - Osteopenia: Encouraged to continue her current exercise regimen of weight lifting and jogging. - Health Maintenance: Orders will be placed for routine fasting blood work. - Patient will proceed with her mammogram scheduled for next week. - Vaccinations: Patient's decision to decline the flu shot was acknowledged. - Medications: The patient has an adequate supply of her muscle relaxer and will receive refills from her pharmacy. Discussion Notes I discussed with the patient that her primary complaint of dry mouth is a very common side effect of muscle relaxants and advised her that she could use hard candies for relief. We reviewed her recent urine test, and I reassured her that since she is asymptomatic, the findings are not a concern and that we will continue to follow her urologist's recommendation to not treat it. I informed her that I would be ordering new fasting blood work. We confirmed her health maintenance is on track with a mammogram scheduled and recent dental visits completed. Her decision to decline the influenza vaccine was noted and accepted. I commended her on her exercise regimen for osteopenia. Patient Instructions - For the dry mouth you are experiencing from your muscle relaxer, you can chew on hard candy to help. - Do not worry about your recent urine test results, as you have no symptoms and your urologist considers this normal for you. - You will need to go to the lab for new blood work. - Please do not eat or drink anything except water before the test. - Continue with your current medications: statin, calcium, vitamin D, and muscle relaxant. - Keep up with your exercise, including lifting weights and jogging in place. - Please attend your scheduled mammogram next week. Orders: Orders Basic Metabolic Panel Today E78.00 - Pure hypercholesterolemia, unspecified Thyroid Stimulating Hormone Today E78.00 - Pure hypercholesterolemia, unspecified UA and rflx microscopic Today E78.00 - Pure hypercholesterolemia, unspecified Complete Blood Count no Diff Today E78.00 - Pure hypercholesterolemia, unspecified Liver Panel Today E78.00 - Pure hypercholesterolemia, unspecified Lipid Panel Today E78.00 - Pure hypercholesterolemia, unspecified
[2025-05-02 11:26] VITALS: BP 160/84; PULSE 99; RESP 18; TEMP 37; O2SAT 98; BMI 30.5
== END 2025-05-02 11:46 | disposition home or self-care (01) ==
LOC: HO.HMCH 10:47
PROVIDERS: PCP Internal Medicine; Visit Provider Internal Medicine
DX: E78.00 Pure hypercholesterolemia, unspecified (principal)

== ENCOUNTER → 2025-05-02 10:47 | Outpatient (BNVA) | payer MEDICARE, SELFPAY | PROVIDERS: PCP Internal Medicine; Visit Provider Internal Medicine | DX: F41.1 Generalized anxiety disorder (principal); E78.00 Pure hypercholesterolemia, unspecified; M85.80 Other specified disorders of bone density and structure, unspecified site; Z79.899 Other long term (current) drug therapy | CPT/HCPCS: 99212 ==

== ENCOUNTER 2025-05-06 08:36 | Outpatient (REF) | payer MEDICARE, SELFPAY ==
--- OUTSIDE RECORDS SUMMARY | 2025-05-06 08:52 | XMS_ITS | Encounter Summary ---
Author Organization [facility] Address [address] [address] Phone Care Team Providers Care Supervisor Gate Services Name Role Phone Jf Talbot NIC Primary Care Provider [phone] [phone] Pcp, Unknown Primary Care Provider Unavailabl e Encounter Details Date Type Department Care Team (Late st Contact Info) Description 03/07/2017 Ancillary Orders [facility] [address] [place] [address] Ivanna Vázquez MD [address] [place] [id number] Visit for screening mammogram Social History Tobacco [...] documented as of this encounter Care Teams Supervisor Gate Services Relationship Specialty Start Date End Date Jf Talbot CNP [address] [place] [address], [address] [place] [address] PCP - General 03/07/17 09/21/21 Pcp, Unknown PCP - General 09/22/21 documented as of this encounter Additional Source Comments The information contained in this document represents components of the legal health record. It is not the complete legal health record.[facility]
--- OUTSIDE RECORDS SUMMARY | 2025-05-06 08:53 | XMS_ITS | Encounter Summary ---
Author Organization [facility] Address [address] [facility] [address] [place] [address] Phone Care Team Providers Care Salvage Inspector Wood [employer] Name Role Phone Jf Talbot CNP Primary Care Provider [phone] [phone] Pcp, Unknown Primary Care Provider Unavailabl e Encounter Details Date Type Department Care Team (Late st Contact Info) Description 06/14/2017 Documentation [facility] Infectious Disease Virtual Department [address] [place] [address] Pcp, Not Required Social History Tobacco Use [...] documented as of this encounter Care Teams Salvage Inspector [employer] Relationship Specialty Start Date End Date Jf Talbot CNP [address] [facility] [place] [address] PCP - General 03/07/17 09/21/21 Pcp, Unknown PCP - General 09/22/21 documented as of this encounter Additional Source Comments The information contained in this document represents components of the legal health record. It is not the complete legal health record.[facility]
--- OUTSIDE RECORDS SUMMARY | 2025-05-06 08:53 | XMS_ITS | Encounter Summary ---
Author Organization [facility] Address [address] [facility] [address] [place] [address] Phone Care Team Providers Care Training Development Specialist Name Role Phone Jf Talbot CNP Primary Care Provider [phone] [phone] Pcp, Unknown Primary Care Provider Unavailabl e Encounter Details Date Type Department Care Team (Late st Contact Info) Description 02/13/2018 Ancillary Orders [facility] [address] [place] [address] Jf Talbot CNP [address] [facility] [place] [address] [email or web address] Breast screening Social History Tobacco Use [...] documented as of this encounter Care Teams Training Development Specialist Relationship Specialty Start Date End Date Jf Talbot CNP [address] [place] [address], [address] [place] [address] PCP - General 03/07/17 09/21/21 Pcp, Unknown PCP - General 09/22/21 documented as of this encounter Additional Source Comments The information contained in this document represents components of the legal health record. It is not the complete legal health record.[facility]
--- OUTSIDE RECORDS SUMMARY | 2025-05-06 08:53 | XMS_ITS | Clinical Summary ---
Author Organization [facility] Address [address] [address] Phone Care Team Providers Care Laboratory Supervisor Name Role Phone Pcp, Unknown Primary Care [...] are scattered fibroglandular densities. POS -CDHMAM2 Result [facility] Jf Talbot SNUFF GRINDER IMG MG EXAMS Final Res ult * Outside HDL (10/28/2014) [facility] HDL - External 41 40 - 80 mg/dL Result [facility] Historical Provider LAB BLOOD ORDERABLES Elizabeth l Result * COLONOSCOPY FOR RESULT ENTRY ONLY (10/09/2008) [facility] Colonoscopy negative- repeat 7-10 yrs. Result [facility] Historical Provider HEALTH MAINTENANCE Final Result * OUTSIDE BONE DENSITY SCREENING (11/29/2007) [facility] BONE DENSITY SCREENING - EXTERNAL ... Result [facility] Historical [place] MAINTENA[facility]CE Final Result from Last 3 Months or Most Recently Relevant to Health Maintenance Insurance [facility] MEDICARE O BLUE REPLACEMENT [facility] MEDICARE O BLUE REPLACEMENT [facility] MEDICARE O BLUE [facility]PLACEMENT [facility] MEDICARE HMO BLUE REPLACEMENT [facility] MEDICARE HMO BLUE REPLACEMENT [facility] MEDICARE O BLUE REPLACEMENT [facility] MEDICARE HMO BLUE REPLACEMENT [facility] MEDICARE HMO BLUE REPLACEMENT [facility] MEDICARE HMO BLUE REPLACEMENT Care Teams Laboratory Supervisor Relationship Specialty Start Date End Date Pcp, Unknown PCP - General 09/22/21 Additional Source Comments The information contained in this document represents components of the legal health record. It is not the complete legal health record.[facility]
[2025-05-06 11:10] LABS: Appearance Urine Clear; Glucose Urine UA Negative (Negative); PH 6.5 (5.0-9.0); Specific Gravity - Urine 1.020 (1.005-1.025); UMIC TRIGGER UA YES
[2025-05-06 11:25] LABS: Hematocrit 43.6 % (37.0-47.0); Hemoglobin 14.2 g/dl (12.0-16.0); Mean Corpuscular HGB Conc 32.6 g/dl (31.0-35.0); Mean Corpuscular Hemoglobin 27.2 pg (27.0-33.0); Mean Corpuscular Volume 83.5 fL (80.0-98.0); NRBC Abs Auto 0.000 X10*3/uL (0.0-0.012); NRBC Pct Auto 0.0 /100WBC (0.0-0.2); Platelet Count 320 X10*3/uL (160-400); Red Blood Count 5.22 X10*6/uL (4.20-5.50); White Blood Count 6.5 X10*3/uL (4.8-10.8)
[2025-05-06 11:37] LABS: Alanine Aminotransferase 22 U/L (0-31); Albumin Level 4.3 g/dL (3.5-5.0); Alkaline Phosphatase 90 U/L (39-117); Anion Gap 10 (12-20); Aspartate Amino Transferase 31 U/L (5-31); Blood Urea Nitrogen 13 mg/dL (9-16); Calcium 9.2 mg/dL (8.4-10.2); Carbon Dioxide 28 mmol/L (22-29); Chloride 107 mmol/L (96-108); Cholesterol 173 mg/dL (<200); Estimated Glomerular Filt Rate > 60; HDL Cholesterol 40 mg/dL (>40); Potassium 3.9 mmol/L (3.3-5.1); Sodium 141 mmol/L (135-145); Total Protein 7.3 g/dL (6.5-8.0); Triglycerides 156 mg/dL (<150)
[2025-05-06 11:52] LABS: Thyroid Stimulating Hormone 2.16 uIU/mL (0.32-4.0)
== END 2025-05-06 08:37 | disposition home or self-care (01) ==
LOC: HO.WFDLDS 08:36
PROVIDERS: Visit Provider Internal Medicine
DX: E78.00 Pure hypercholesterolemia, unspecified (principal); Z13.220 Encounter for screening for lipoid disorders
CPT/HCPCS: 36415; 80048; 80061; 80076; 81001; 84443; 85027

== ENCOUNTER 2025-05-07 09:16 | Outpatient (REF) | payer MEDICARE, SELFPAY ==
--- OUTSIDE RECORDS SUMMARY | 2025-05-07 09:57 | XMS_ITS | Encounter Summary ---
Author Organization [facility] Address [address] [address] Phone Care Team Providers Care Flap Presser Name Role Phone Jf Talbot NIC Primary Care Provider [phone] [phone] Pcp, Unknown Primary Care Provider Unavailabl e Encounter Details Date Type Department Care Team (Late st Contact Info) Description 03/07/2017 Ancillary Orders [facility] Obstetrics [facility] Gynecology [facility] [address] [place] [address] Ivanna Vázquez MD [address] [place] [id number] Visit for screening mammogram Social History Tobacco [...] documented as of this encounter Care Teams Flap Presser Relationship Specialty Start Date End Date Jf Talbot CNP [address] [place] [address], [address] [place] [address] PCP - General 03/07/17 09/21/21 Pcp, Unknown PCP - General 09/22/21 documented as of this encounter Additional Source Comments The information contained in this document represents components of the legal health record. It is not the complete legal health record.[facility]
--- OUTSIDE RECORDS SUMMARY | 2025-05-07 09:58 | XMS_ITS | Clinical Summary ---
Author Organization [facility] Address [address] [address] Phone Care Team Providers Care Riffler Tender Name Role Phone Pcp, Unknown Primary Care [...] are scattered fibroglandular densities. POS -CDHMAM2 Result [facility] Jf Talbto CANVASSING MANAGER IMG MG EXAMS Final Res ult * Outside HDL (10/28/2014) [facility] HDL - External 41 40 - 80 mg/dL Result [facility] Historical Provider LAB BLOOD ORDERABLES Elizabeth l Result * COLONOSCOPY FOR RESULT ENTRY ONLY (10/09/2008) [facility] Colonoscopy negative- repeat 7-[address] [facility] Historical Provider HEALTH MAINTENANCE Final Result * OUTSIDE BONE DENSITY SCREENING (11/29/2007) [facility] BONE DENSITY SCREENING - EXTERNAL ... Result [facility] Historical [place]IN[facility] Final Result from Last 3 Months or Most Recently Relevant to Health Maintenance Insurance [facility] MEDICARE O BLUE REPLACEMENT [facility] MEDICARE O BLUE REPLACEMENT [facility] MEDICARE O BLUE REPLACEMENT [facility] MEDICARE HMO BLUE REPLACEMENT [facility] MEDICARE HMO BLUE REPLACEMENT [facility] MEDICARE O BLUE REPLACEMENT [facility] MEDICARE HMO BLUE REPLACEMENT [facility] MEDICARE HMO BLUE REPLACEMENT [facility] MEDICARE HMO BLUE REPLACEMENT Care Teams Riffler Tender Relationship Specialty Start Date End Date Pcp, Unknown PCP - General 09/22/21 Additional Source Comments The information contained in this document represents components of the legal health record. It is not the complete legal health record.[facility]
--- OUTSIDE RECORDS SUMMARY | 2025-05-07 09:58 | XMS_ITS | Encounter Summary ---
Author Organization [facility] Address [address] [facility] [address] [place] [address] Phone Care Team Providers Care Naval Surface Fire Support Planner Name Role Phone Jf Talbot CNP Primary Care Provider [phone] [phone] Pcp, Unknown Primary Care Provider Unavailabl e Encounter Details Date Type Department Care Team (Late st Contact Info) Description 06/14/2017 Documentation [facility] Infectious Disease Virtual Department [address] [place] [address] Pcp, Not Required Social History Tobacco Use [...] documented as of this encounter Care Teams Naval Surface Fire Support Planner Relationship Specialty Start Date End Date Jf Talbot CNP [address] [facility] [place] [address] PCP - General 03/07/17 09/21/21 Pcp, Unknown PCP - General 09/22/21 documented as of this encounter Additional Source Comments The information contained in this document represents components of the legal health record. It is not the complete legal health record.[facility]
--- OUTSIDE RECORDS SUMMARY | 2025-05-07 09:58 | XMS_ITS | Encounter Summary ---
Author Organization [facility] Address [address] [facility] [address] [place] [address] Phone Care Team Providers Care Business Development Executive Name Role Phone Jf Talbot CNP Primary Care Provider [phone] [phone] Pcp, Unknown Primary Care Provider Unavailabl e Encounter Details Date Type Department Care Team (Late st Contact Info) Description 02/13/2018 Ancillary Orders [facility] Primary Care Clinic [address] [place] [address] Jf Talbot, NIC [address] [facility] [place] [address] [email or web address] Breast screening Social History Tobacco Use [...] documented as of this encounter Care Teams Business Development Executive Relationship Specialty Start Date End Date Jf Talbot CNP [address] [place] [address], [address] [place] [address] PCP - General 03/07/17 09/21/21 Pcp, Unknown PCP - General 09/22/21 documented as of this encounter Additional Source Comments The information contained in this document represents components of the legal health record. It is not the complete legal health record.[facility]
== END 2025-05-07 09:17 | disposition home or self-care (01) ==
LOC: HO.MAMMO 09:16
PROVIDERS: PCP Internal Medicine; Visit Provider Internal Medicine
DX: Z12.31 Encounter for screening mammogram for malignant neoplasm of breast (principal)
CPT/HCPCS: 77063; 77067

== ENCOUNTER → 2025-05-07 09:30 | Outpatient (BNV) | payer MEDICARE, SELFPAY | PROVIDERS: PCP Internal Medicine; Visit Provider Internal Medicine | DX: Z12.31 Encounter for screening mammogram for malignant neoplasm of breast (principal) | CPT/HCPCS: 77063; 77067 ==